=== PATIENT | female | born 1930 | race Caucasian/White ===

== ENCOUNTER 2017-05-30 11:33 | Inpatient (IN) | payer MEDICARE, BC, OTHER ==
[~2017-05-30] VITALS: Ht 162.6 cm; Wt 62.5 kg
[2017-05-30] VITALS (8 sets, daily range): BP systolic 104–199; BP diastolic 60–92; PULSE 69–98; RESP 16–20; TEMP 97.6–98.7; O2SAT 96–98
[~2017-05-30 11:33] MED LIST: LEVO75TA3 PO
--- NOTE | 2017-05-30 12:25 | PD ---
HPI Chief Complaint: Respiratory Symptoms Time Seen by Provider: 12:09 Travel History International Travel<30 days: No Contact w/Intl Traveler<30days: No Traveled to known affect area: No History of Present Illness HPI 86-year-old female presents to the emergency department for evaluation of an episode of chest pressure, shortness of breath on Sunday, 2 days ago, as well as generalized weakness. Patient states that on Sunday round 1 PM, she had approximately 20 minute episode of shortness of breath with chest pressure. She states it felt like indigestion. She states the chest pressure was relieved with Gas-X. She denies any current chest pressure or shortness of breath. She states that she felt generally weak yesterday, but actually is feeling much better this morning. However, she was going to go for a massage and was encouraged to come to the emergency department by her masseuse. The patient denies any headache. She does report visual changes in the past, but states her vision is "clear" now. Patient denies any fevers or chills. She has no current shortness of breath or chest pain. No abdominal pain. No nausea , vomiting, diarrhea. Patient states that she has not had any syncopal episodes. She has not fallen. She states that she felt like she was unable to. Yesterday, but states that today she is able to function normally. She does live alone. Patient reports drinking 1 shot of alcohol daily. She states that she was a previous tobacco user, but does not currently smoke. No other complaints at this time. Patient denies any recent surgery or travel. No history of DVT/PE. No new leg edema. No hemoptysis. Patient took ASA 81 mg PO this AM. PFSH Past Medical History Arthritis: Yes Cancer: Yes (melano insitu) Cardiovascular Problems: No Coronary Artery Disease: Yes (AORTIC/MITRAL VALVE DISEASE) Diabetes: No Diverticulitis: Yes Genitourinary: No Hepatitis: No Hiatal Hernia: No Hypertension: No Implanted Vascular Access Dvce: No Musculoskeletal: Yes (OSTEOPENIA) Neurologic: No Reproductive: No Respiratory: No Thyroid Disease: Yes ?: Not Past Surgical History Abdominal Aneurysm Repair: Yes Section: Yes Ear Surgery: No Eye Surgery: Yes (BILATERAL CATARACTS) Gynecologic Surgery: Yes (c section) Oral Surgery: Yes (implants ) Tonsillectomy: Yes Other Surgery: Yes Social History Alcohol Use: No Tobacco Use: No Substance Use: No Allergies-Medications (Allergen,Severity, Reaction): Coded Allergies: No Known Allergies (Verified , 05/30/17) Reported Meds & Prescriptions Reported Meds & Active Scripts Active Reported Aspirin Low Dose (Aspirin) 81 Mg Chew 81 Mg CHEW DAILY Levothyroxine (Levothyroxine Sodium) 75 Mcg Tab 75 Mcg PO DAILY Review of Systems Except as stated in HPI: all other systems reviewed are Neg Physical Exam Narrative GENERAL: Well-nourished, well-developed elderly female patient, afebrile. SKIN: Focused skin assessment warm/dry. HEAD: Normocephalic. Atraumatic. EYES: No scleral icterus. No injection or drainage. NECK: Supple, trachea midline. No JVD or lymphadenopathy. CARDIOVASCULAR: Regular rate and rhythm without murmurs, gallops, or rubs. Patient does have systolic murmur noted, patient states this is chronic for her. RESPIRATORY: Breath sounds equal bilaterally. No accessory muscle use. Lungs sounds are clear to auscultation. GASTROINTESTINAL: Abdomen soft, non-tender, nondistended. MUSCULOSKELETAL: No cyanosis, or edema. Bilateral upper and lower extremity strength 5/5. All extremities are neurovascularly intact. BACK: Nontender without obvious deformity. No CVA tenderness. Data Data Last Documented VS Vital Signs Date Time Temp Pulse Resp B/P (MAP) Pulse Ox O2 Delivery O2 Flow Rate FiO2 05/30/17 12:51 88 18 181/75 (110) 98 Room Air 193/82 (119) 05/30/17 11:49 98.0 Orders Orders Electrocardiogram (05/30/17 12:18) Ckmb (Isoenzyme) Profile (05/30/17 12:18) Complete Blood Count With Diff (05/30/17 12:18) Comprehensive Metabolic Panel (05/30/17 12:18) Magnesium (Mg) (05/30/17 12:18) Prothrombin Time / Inr (Pt) (05/30/17 12:18) Act Partial Throm Time (Ptt) (05/30/17 12:18) Troponin I (05/30/17 12:18) Lipase (05/30/17 12:18) Chest, Single Ap (05/30/17 12:18) Ecg Monitoring (05/30/17 12:18) Bilateral Bp Monitoring (05/30/17 12:18) Iv Access Insert/Monitor (05/30/17 12:18) Oximetry (05/30/17 12:18) Oxygen Administration (05/30/17 12:18) Aspirin Chew (Aspirin Chew) (05/30/17 12:30) Sodium Chloride 0.9% Flush (Ns Flush) (05/30/17 12:30) Thyroid Stimulating Hormone (05/30/17 12:18) Urinalysis - C+S If Indicated (05/30/17 12:20) Aspirin Chew (Aspirin Chew) (05/30/17 12:30) Lisinopril (Prinivil) (05/30/17 13:30) Place In Observation (05/30/17 13:26) Activity Bed Rest With Brp (05/30/17 13:26) Vital Signs (Adult) Q4H (05/30/17 13:26) Cardiac Rhythm .As Directed (05/30/17 13:26) Notify Dr: Other .PRN (05/30/17 13:26) Notify Dr. Parameters (05/30/17 13:26) Resp Oxygen Nasal Cannula (05/30/17 ) Diet Npo (05/31/17 Breakfast) Diet Heart Healthy (05/30/17 Lunch) Ckmb (Isoenzyme) Profile (05/30/17 13:26) Ckmb (Isoenzyme) Profile (05/30/17 16:26) Troponin I (05/30/17 13:26) Troponin I (05/30/17 16:26) Electrocardiogram (05/30/17 13:26) Electrocardiogram (05/30/17 16:26) ^ Obtain (05/30/17 13:26) Sodium Chloride 0.9% Flush (Ns Flush) (05/30/17 13:30) Sodium Chloride 0.9% Flush (Ns Flush) (05/30/17 21:00) Nitroglycerin 2% Oint (Nitroglycerin 2% (05/30/17 18:00) Stain Applicator / Telemetry CYNTHIA.Q8H (05/30/17 13:26) Admit Order (Ed Use Only) (05/30/17 13:27) Labs Laboratory Tests Test 05/30/17 12:20 05/30/17 12:40 White Blood Count 8.8 TH/MM3 Red Blood Count 3.72 MIL/MM3 Hemoglobin 11.6 GM/DL Hematocrit 35.2 % Mean Corpuscular Volume 94.6 FL Mean Corpuscular Hemoglobin 31.1 PG Mean Corpuscular Hemoglobin Concent 32.9 % Red Cell Distribution Width 14.8 % Platelet Count 277 TH/MM3 Mean Platelet Volume 8.1 FL Neutrophils (%) (Auto) 60.8 % Lymphocytes (%) (Auto) 24.8 % Monocytes (%) (Auto) 11.2 % Eosinophils (%) (Auto) 2.6 % Basophils (%) (Auto) 0.6 % Neutrophils # (Auto) 5.2 TH/MM3 Lymphocytes # (Auto) 2.2 TH/MM3 Monocytes # (Auto) 1.0 TH/MM3 Eosinophils # (Auto) 0.2 TH/MM3 Basophils # (Auto) 0.1 TH/MM3 CBC Comment DIFF FINAL Differential Comment Prothrombin Time 10.4 SEC Prothromb Time International Ratio 0.9 RATIO Activated Partial Thromboplast Time 27.5 SEC Blood Urea Nitrogen 14 MG/DL Creatinine 0.82 MG/DL Random Glucose 95 MG/DL Total Protein 7.6 GM/DL Albumin 3.8 GM/DL Calcium Level 9.5 MG/DL Magnesium Level 2.0 MG/DL Alkaline Phosphatase 77 U/L Aspartate Amino Transf (AST/SGOT) 17 U/L Alanine Aminotransferase (ALT/SGPT) 18 U/L Total Bilirubin 0.3 MG/DL Sodium Level 139 MEQ/L Potassium Level 3.9 MEQ/L Chloride Level 104 MEQ/L Carbon Dioxide Level 28.4 MEQ/L Anion Gap 7 MEQ/L Estimat Glomerular Filtration Rate 66 ML/MIN Total Creatine Kinase 73 U/L Troponin I LESS THAN 0.02 NG/ML Lipase 315 U/L Thyroid Stimulating Hormone 3rd Gen 0.928 uIU/ML Urine Collection Type CLEAN CATCH Urine Color YELLOW Urine Turbidity CLEAR Urine pH 6.5 Urine Specific [place] 1.020 Urine Protein NEG mg/dL Urine Glucose (UA) NEG mg/dL Urine Ketones NEG mg/dL Urine Occult Blood TRACE Urine Nitrite NEG Urine Bilirubin NEG Urine Leukocyte Esterase NEG Urine RBC 0-3 /hpf Urine Squamous Epithelial Cells 0-5 /hpf Microscopic Urinalysis Comment CULT NOT INDICATED Urine Collection Time 12:40 [facility] Medical Decision Making Medical Screen Exam Complete: Yes Emergency Medical Condition: Yes Medical Record Reviewed: Yes Interpretation(s) chest x-ray - CONCLUSION: No acute disease. Differential Diagnosis ACS versus electrolyte abnormality versus UTI versus dehydration versus pneumonia versus indigestion Narrative Course 86-year-old female presents to the emergency department for evaluation of generalized weakness, episode of chest pressure/shortness of breath on Sunday. She has no shortness breath or chest pain now. Episode on Sunday was relieved with Gas-X. She also states that her weakness is much better today. Patient does appear well on exam. EKG, CBC, CMP, CK, troponin, TSH, lipase, UA, PTT, PT / INR are ordered and pending. Chest x-ray is ordered and pending. Patient is given aspirin 81 mg by mouth (patient took ASA 81 mg this AM as well). EKG shows SR, no acute ST changes. CBC shows no acute abnormalities. CMP is unremarkable. Lipase is 315. CK is 73. Troponin is less than 0.02. TSH is 0.928. Coags are unremarkable. UA is unremarkable. Chest x-ray shows no acute disease. 1242- Patient reports chest pressure when walking to the bathroom, "feels like a bra". VSS. According to RN, she did notice a PVC on cardiac exercise physiologist. [facility] is paged for admission. Dr. Norris accepted admission. Steph Smith May 30, 2017 12:25
[2017-05-30] MEDS ORDERED: ASPI81CH37 CHEW (12:26)
[2017-05-30 12:28] LABS: AUTOMATED NEUTROPHIL # 5.2 TH/MM3 (1.8-7.7); BASOPHIL # 0.1 TH/MM3 (0-0.2); BASOPHIL % 0.6 % (0.0-2.0); EOSINOPHIL # 0.2 TH/MM3 (0-0.4); EOSINOPHIL % 2.6 % (0.0-4.0); HEMATOCRIT 35.2 % (35.0-46.0); HEMO FLAGS DIFF FINAL; LYMPH % 24.8 % (9.0-44.0); LYMPHOCYTE # 2.2 TH/MM3 (1.0-4.8); MEAN CELL VOLUME 94.6 FL (80.0-100.0); MEAN CORPUSCULAR HEMOGLOBIN 31.1 PG (27.0-34.0); MEAN CORPUSCULAR HGB CONC 32.9 % (32.0-36.0); MONO % 11.2 % (0.0-8.0); NEUT % 60.8 % (16.0-70.0); PLATELET COUNT 277 TH/MM3 (150-450); RED BLOOD COUNT 3.72 MIL/MM3 (4.00-5.30); RED CELL DISTRIBUTION WIDTH 14.8 % (11.6-17.2); WHITE BLOOD COUNT 8.8 TH/MM3 (4.0-11.0)
[2017-05-30] MEDS ORDERED: ASPIRIN 81 MG CHEW TAB CHEW ONE (12:30)
[2017-05-30] MEDS ORDERED: ASPIRIN 81 MG CHEW TAB PO ONE (12:30)
[2017-05-30] MEDS ORDERED: SODIUM CHLORIDE 0.9% FLUSH 10 ML FLUSH IVF PRN (12:30)
[2017-05-30 12:36] LABS: CHLORIDE 104 MEQ/L (98-107); POTASSIUM 3.9 MEQ/L (3.5-5.1); SODIUM (NA) 139 MEQ/L (136-145)
--- NOTE | 2017-05-30 12:36 | RADRPT ---
EXAM DATE/TIME: 05/30/2017 12:28 [place] COMPARISON: No previous studies available for comparison. INDICATIONS : Short of breath, chest pain. MEDICAL HISTORY : None. SURGICAL HISTORY : None. ENCOUNTER: Initial ACUITY: 1 week PAIN SCORE: 110 LOCATION: Bilateral chest FINDINGS: A single view of the chest demonstrates the lungs to be symmetrically aerated without evidence of mas s, infiltrate or effusion. Apical pleural calcifications are seen bilaterally. The cardiomediastina l contours are unremarkable. Osseous structures are intact. CONCLUSION: No acute disease. Matt Mobley MD FACR on May 30, 2017 at 12:34 Board Certified Radiologist. This report was verified electronically.
[2017-05-30 12:39] LABS: ANION GAP 7 MEQ/L (5-15); BICARBONATE 28.4 MEQ/L (21.0-32.0); BLOOD UREA NITROGEN 14 MG/DL (7-18)
[2017-05-30 12:40] LABS: APTT (PATIENT) 27.5 SEC (24.3-30.1); INTERNATIONAL NORMALIZED RATIO 0.9 RATIO; PROTHROMBIN TIME - PATIENT 10.4 SEC (9.8-11.6)
[2017-05-30 12:42] LABS: ALT (GPT) 18 U/L (10-53); AST (GOT) 17 U/L (15-37); GLOMERULAR FILTRATION RATE 66 ML/MIN (>89)
[2017-05-30 12:44] LABS: TOTAL BILIRUBIN ADULT 0.3 MG/DL (0.2-1.0)
[2017-05-30 12:45] LABS: ALKALINE PHOSPHATASE 77 U/L (45-117)
[2017-05-30 12:46] LABS: BLOOD, URINE TRACE (NEG); GLUCOSE,URINE NEG (NEG); KETONE, URINE NEG (NEG); NITRITE,URINE NEG (NEG); PH, URINE 6.5 (5.0-8.5)
[2017-05-30 13:02] LABS: METHOD OF COLLECTION CLEAN CATCH; URINE COLOR YELLOW (YELLW/STRAW)
[2017-05-30 13:03] LABS: COMMENT (UR) CULT NOT INDICATED; CULTURE IF INDICATED CULT NOT INDICATED; RBC, URINE 0-3 /hpf (0-3); SQUAMOUS EPITHELIAL CELL URINE 0-5 /hpf (0-5)
[2017-05-30 13:05] LABS: CREATINE KINASE 73 U/L (26-192)
[2017-05-30] MEDS ORDERED: LISINOPRIL 10 MG TAB PO ONE (13:15)
[2017-05-30] MEDS ORDERED: IOHEXOL 350 MG/ML 100 ML BTL (for Cath Lab) OTHER ONE (13:29)
[2017-05-30] MEDS ORDERED: SODIUM CHLORIDE 0.9% FLUSH 10 ML FLUSH IV FLUSH PRN (13:30)
[2017-05-30] MEDS ORDERED: LISINOPRIL 5 MG TAB PO ONE (13:30)
--- NOTE | 2017-05-30 15:33 | HHI.HP ---
cc: Deanne Wade MD [facility] Deanne Wade MD Admission Diagnosis chest pain Diagnoses: (1) Chest pressure Diagnosis: Principal (2) Dyspnea on exertion Diagnosis: Principal (3) Hypertensive urgency Diagnosis: Principal (4) Indigestion Diagnosis: Principal Chief Complaint: indigestion, chest pressure, shortness of breath on exertion Travel History International Travel<30 Days: No Contact w/Intl Traveler <30 Da: No Traveled to Known Affected Are: No History of Present Illness 86-year-old female with history of mitral valve prolapse, AAA, bilateral carotid artery blockages, thyroid disease, and arthritis presents with complaint of indigestion, chest pressure, and shortness of breath on exertion. The patient states that she has had "serious indigestion" for a couple of weeks. She states she has had gas pain in the lower abdomen. She states she took Gas-X which reduced the "abdominal stuff" and allowed her to belch. Takes two tablets of ibuprofen 200 mg daily for arthritis, but denies recent increase in use. Takes ranitidine as needed for heartburn depending on what she eats. Denies hematochezia or melena. She states on Sunday night though when she was getting ready to go to bed she started to have chest pressure in the center of her chest stating it felt like a "heavy book". She states she could not catch her breath. She states this episode lasted 30 minutes. She states again when she was in the ER today in bed she had pressure over the center of her chest which was less severe and lasted 1.5 hours without medication. She denies any associated diaphoresis, numbness or tingling in the upper extremities, radiation of pain to the neck/jaws/shoulders/arms/back, nausea, or vomiting. Denies palpitations. Denies any current chest pain, shortness of breath, or abdominal pain. The patient takes a baby aspirin daily and she took it this morning and received another 81 mg in the ED. Patient denies regurgitation with episodes. She states for the past 6 months she has had shortness of breath with exertion and that she when she does housework etc. she has to take a break which she did not need to do prior to 6 months ago. The patient does not remember when she last had an echocardiogram. She is aware she has a murmur. She states her old PCP Dr. Berg had referred her to Dr. Moon who evaluated her. She tells me she has slight blockages in both carotid arteries and additionally has a AAA which is less than 4 cm, both issues are being monitored. Denies h/o HTN. States she was on Rosuvastatin for 3 -4 years, but had taken herself off it; she restarted it a few days ago. The patient additionally states she had generalized weakness yesterday which has now resolved, but admits to episodes of this on and off over the past 6 months. She denies any focal weakness. The patient admits to feeling lightheaded and woozy when she has her episodes of indigestion. She denies any HAs, recent fevers or chills, cold or cough symptoms, dysuria, or diarrhea. She states she took a long car trip to [place] at the end of March and had some left ankle swelling at that time but it has greatly reduced since then; frequent stops were made. She denies any calf pain, history of DVT or pulmonary embolus, hemoptysis, recent hospitalization/trauma/surgery in the last 3 months, estrogen use, or active cancer. Patient has never had a cardiac stress test. Review of Systems Constitutional: COMPLAINS OF: Dizziness (lightheadedness), DENIES: Diaphoretic episodes, Fever, Chills Eyes: COMPLAINS OF: Blurred vision ("cloudy vision which clears" (duration unknown)) Ears, nose, mouth, throat: DENIES: Throat pain, Ear Pain, Running Nose Respiratory: COMPLAINS OF: Shortness of breath, DENIES: Cough, Hemoptysis Cardiovascular: COMPLAINS OF: Chest pain, Dyspnea on Exertion, DENIES: Palpitations, Lower Extremity Edema (none currently) Gastrointestinal: COMPLAINS OF: Abdominal pain, DENIES: Black stools, Bloody stools, Constipation, Diarrhea, Nausea, Vomiting Genitourinary: COMPLAINS OF: Urinary incontinence (chronic leakage), DENIES: Hematuria, Dysuria Musculoskeletal: DENIES: Back pain, Neck pain Integumentary: DENIES: Rash Neurologic: DENIES: Headache, Localized weakness, Paresthesias Past Family Social History Past Medical History Arthritis in her knees and hands Melanoma Mitral valve prolapse AAA Partial blockages B/L carotid arteries Thyroid disease Patient had 8 pregnancies but lost #6 and #7 stating she was Rh negative. Past Surgical History Bladder sling Bilateral cataracts 1 Dental implants Tonsillectomy Reported Medications Aspirin Low Dose (Aspirin) 81 Mg Chew 81 Mg CHEW DAILY Levothyroxine (Levothyroxine Sodium) 75 Mcg Tab 75 Mcg PO DAILY Rosuvastatin 5 mg po daily Multivitamin OTC Calcium/Mg/Zinc Cod liver oil Allergies: Coded Allergies: No Known Allergies (Verified , 05/30/17) Family History Mother: varicose veins. No h/o heart disease, HTN, or DM. Does not know father's history. Social History Lives alone, . Daughter, who is an RN, lives locally. Drinks a shot of rye whiskey daily. Quit smoking 20 years ago. Prior to this she smoked 1 ppd for 50 years. Denies h/o illicit drug use. Physical Exam Vital Signs Vital Signs Date Time Temp Pulse Resp B/P (MAP) Pulse Ox O2 Delivery O2 Flow Rate FiO2 05/30/17 14:16 05/30/17 14:04 89 16 199/92 (127) 97 Room Air 05/30/17 12:51 88 18 181/75 (110) 98 Room Air 193/82 (119) 05/30/17 12:26 97 Room Air 05/30/17 12:26 97 Room Air 05/30/17 12:26 94 97 Room Air 05/30/17 11:49 98.0 98 16 176/79 (111) 96 Physical Exam GENERAL: This is a pleasant well-nourished, well-developed patient, in no apparent distress who appears good for her age. SKIN: No rashes, ecchymoses or lesions. Warm and dry. HEAD: Atraumatic. Normocephalic. EYES: No scleral icterus. No injection or drainage. ENT: MMM. Airway patent. NECK: Trachea midline. Carotid bruits bilaterally. CARDIOVASCULAR: Regular rate and rhythm. 2/6 murmur most notable over pulmonic region. RESPIRATORY: Clear to auscultation. Breath sounds equal bilaterally. No wheezes , rales, or rhonchi. GASTROINTESTINAL: Abdomen soft, non-tender, nondistended. No guarding. MUSCULOSKELETAL: No lower extremity edema bilaterally. No calf, popliteal, or posterior thigh pain bilaterally. BACK: No CVA tenderness bilaterally. NEUROLOGICAL: Awake and alert. No cranial nerve deficits noted. Motor and sensory grossly within normal limits. Five out of 5 muscle strength in bilateral arms and legs. Normal speech. PSYCHIATRIC: Normal mood and affect; insight and judgement normal. Laboratory Laboratory Tests Test 05/30/17 12:20 05/30/17 12:40 White Blood Count 8.8 Red Blood Count 3.72 Hemoglobin 11.6 Hematocrit 35.2 Mean Corpuscular Volume 94.6 Mean Corpuscular Hemoglobin 31.1 Mean Corpuscular Hemoglobin Concent 32.9 Red Cell Distribution Width 14.8 Platelet Count 277 Mean Platelet Volume 8.1 Neutrophils (%) (Auto) 60.8 Lymphocytes (%) (Auto) 24.8 Monocytes (%) (Auto) 11.2 Eosinophils (%) (Auto) 2.6 Basophils (%) (Auto) 0.6 Neutrophils # (Auto) 5.2 Lymphocytes # (Auto) 2.2 Monocytes # (Auto) 1.0 Eosinophils # (Auto) 0.2 Basophils # (Auto) 0.1 CBC Comment DIFF FINAL Differential Comment Prothrombin Time 10.4 Prothromb Time International Ratio 0.9 Activated Partial Thromboplast Time 27.5 Blood Urea Nitrogen 14 Creatinine 0.82 Random Glucose 95 Total Protein 7.6 Albumin 3.8 Calcium Level 9.5 Magnesium Level 2.0 Alkaline Phosphatase 77 Aspartate Amino Transf (AST/SGOT) 17 Alanine Aminotransferase (ALT/SGPT) 18 Total Bilirubin 0.3 Sodium Level 139 Potassium Level 3.9 Chloride Level 104 Carbon Dioxide Level 28.4 Anion Gap 7 Estimat Glomerular Filtration Rate 66 Total Creatine Kinase 73 Troponin I LESS THAN 0.02 Lipase 315 Thyroid Stimulating Hormone 3rd Gen 0.928 Urine Collection Type CLEAN CATCH Urine Color YELLOW Urine Turbidity CLEAR Urine pH 6.5 Urine Specific [place] 1.020 Urine Protein NEG Urine Glucose (UA) NEG Urine Ketones NEG Urine Occult Blood TRACE Urine Nitrite NEG Urine Bilirubin NEG Urine Leukocyte Esterase NEG Urine RBC 0-3 Urine Squamous Epithelial Cells 0-5 Microscopic Urinalysis Comment CULT NOT INDICATED Urine Collection Time 12:40 Result Diagram: 05/30/17 1220 05/30/17 1220 Imaging Last Impressions Chest X-Ray 05/30/17 1218 Signed Impressions: Service Date/Time: Tuesday, May 30, 2017 12:28 - CONCLUSION: No acute disease. Matt Mobley MD FACR Caprini VTE Risk Assessment Caprini VTE Risk Assessment: Mod/High Risk (score >= 2) Caprini Risk Assessment Model Point Value = 1 Point Value = 2 Point Value = 3 Point Value = 5 Age 41-60 Minor surgery BMI > 25 kg/m2 Swollen legs Varicose veins or History of unexplained or recurrent spontaneous Oral contraceptives or hormone replacement Sepsis (< 1 month) Serious lung disease, including pneumonia (< 1 month) Abnormal pulmonary function Acute myocardial infarction Congestive heart failure (< 1 month) History of inflammatory bowel disease Medical patient at bed rest Age 61-74 Arthroscopic surgery Major open surgery (> 45 min) Laparoscopic surgery (> 45 min) Malignancy Confined to bed (> 72 hours) Immobilizing plaster cast Central venous access Age >= 75 History of VTE Family history of VTE Factor V Leiden Prothrombin [id number] Lupus anticoagulant Anticardiolipin antibodies Elevated serum homocysteine Heparin-induced thrombocytopenia Other congenital or acquired thrombophilia Stroke (< 1 month) Elective arthroplasty Hip, pelvis, or leg fracture Acute spinal cord injury (< 1 month) Prophylaxis Regimen Total Risk Factor Score Risk Level Prophylaxis Regimen 0-1 Low Early ambulation 2 Moderate Order ONE of the following: *Sequential Compression Device (SCD) *Heparin 5000 units SQ BID 3-4 Higher Order ONE of the following medications: *Heparin 5000 units SQ TID *Enoxaparin/Lovenox 40 mg SQ daily (WT < 150 kg, CrCl > 30 mL/min) *Enoxaparin/Lovenox 30 mg SQ daily (WT < 150 kg, CrCl > 10-29 mL/min) *Enoxaparin/Lovenox 30 mg SQ BID (WT < 150 kg, CrCl > 30 mL/min) AND/OR *Sequential Compression Device (SCD) 5 or more Highest Order ONE of the following medications: *Heparin 5000 units SQ TID (Preferred with Epidurals) *Enoxaparin/Lovenox 40 mg SQ daily (WT < 150 kg, CrCl > 30 mL/min) *Enoxaparin/Lovenox 30 mg SQ daily (WT < 150 kg, CrCl > 10-29 mL/min) *Enoxaparin/Lovenox 30 mg SQ BID (WT < 150 kg, CrCl > 30 mL/min) AND *Sequential Compression Device (SCD) Assessment and Plan Assessment and Plan 86 year old female with: Chest pressure: EKG #1 personally interpreted with NSR, first-degree AV block, but no evidence of ischemia. Chest x-ray personally interpreted with no evidence of cardiomegaly, effusion, or infiltrate. Radiologist indicates there are apical pleural calcifications bilaterally which daughter states are chronic. CBC unremarkable. Aside from GFR of 66, CMP unremarkable. Troponin less than 0.02. TSH normal. -Serial EKGs and enzymes -Telemetry -Nitroglycerin/morphine prn chest pain -Patient will undergo nuclear stress test in the morning if ACS ruled out. Patient aware that if nuclear test is abnormal she would likely require cardiac catheterization. Dyspnea on exertion: Past 6 months. Patient does have history of mitral valve prolapse and has murmur on exam. She does not recall when she last had an echo. No evidence of acute CHF on exam or chest x-ray. Differentials include worsening valve disorder, heart failure, or deconditioning due to age. -Echo Hypertensive urgency: Patient's blood pressure has been elevated since arrival with highest BP of 199/92 this afternoon. Patient was given Lisinopril 10 mg by mouth in the ED. -Enalapril 1.25 mg IV q6h prn SBP >/= 160 and/or DBP >/= 90. Indigestion: Past couple of weeks. Abdominal gas pain has resolved with Gas-Ex. Patient uses Ranitidine prn but states she did not use it while taking Gas-Ex. -Start Pepcid 20 mg po bid Carotid bruits: chronic, patient being followed for blockages. Continue Crestor. RN to add to med rec so can be continued. DVT prophylaxis: SCDs Code Status FULL CODE Discussed Condition With patient and daughter at bedside Susanne Newman May 30, 2017 15:33
[2017-05-30] MEDS ORDERED: ONDANSETRON HCL 4 MG/2 ML VIAL IV PUSH PRN (15:45)
[2017-05-30] MEDS ORDERED: ACETAMINOPHEN 500 MG CPLT PO PRN (15:45)
[2017-05-30] MEDS ORDERED: MORPHINE SULFATE 4 MG/ML INJ IV PUSH PRN (15:45)
[2017-05-30] MEDS ORDERED: NITROGLYCERIN 0.4 MG SL 25 TABS/BTL SL PRN (15:45)
[2017-05-30 16:27] LABS: CREATINE KINASE 75 U/L (26-192)
[2017-05-30] MEDS ORDERED: ENOXAPARIN SODIUM 40 MG/0.4 ML SYRINGE SQ SCH (17:00)
[2017-05-30] MEDS ORDERED: ENALAPRILAT 1.25 MG/ML VIAL IV PUSH PRN (17:00)
[2017-05-30] MEDS ORDERED: NITROGLYCERIN 2% OINT 1 GM PACKET TOP SCH (18:00)
[2017-05-30 19:28] LABS: CREATINE KINASE 70 U/L (26-192)
[2017-05-30] MEDS: SODIUM CHLORIDE 0.9% FLUSH 10 ML FLUSH IV FLUSH SCH (20:24)
[2017-05-30] MEDS ORDERED: FAMOTIDINE 20 MG TAB PO SCH (21:00)
--- NOTE | 2017-05-30 23:30 | EKG ---
Date Performed: 05/30/2017 Time Performed: 18:38:29 PTAGE: 86 years EKG: Sinus rhythm WITH FIRST DEGREE AV BLOCK ABNORMAL ECG PREVIOUS TRACING : 05/30/2017 15.37 Compared to prior tracing no significant change DOCTOR: Edgardo Soni Interpretating Date/Time 05/30/2017 23:29:55
--- NOTE | 2017-05-30 23:35 | EKG ---
Date Performed: 05/30/2017 Time Performed: 15:37:21 PTAGE: 86 years EKG: Sinus rhythm WITH FIRST DEGREE AV BLOCK WITH OCCASIONAL VENTRICULAR PREMATURE COMPLEXES ABNORMAL ECG PREVIOUS TRACING : 05/30/2017 12.24 Compared to prior tracing no significant change DOCTOR: Edgardo Soni Interpretating Date/Time 05/30/2017 23:34:42
--- NOTE | 2017-05-30 23:50 | EKG ---
Date Performed: 05/30/2017 Time Performed: 12:24:21 PTAGE: 86 years EKG: Sinus rhythm WITH FIRST DEGREE AV BLOCK ABNORMAL ECG PREVIOUS TRACING : 11/05/2012 06.50 Compared to prior tracing no significant change DOCTOR: Edgardo Soni Interpretating Date/Time 05/30/2017 23:48:45
[2017-05-31] VITALS (12 sets, daily range): BP systolic 85–160; BP diastolic 55–76; PULSE 73–101; RESP 16–20; TEMP 95.6–97.9; O2SAT 95–99
[2017-05-31] MEDS: LEVOTHYROXINE SODIUM 75 MCG TAB PO SCH (05:38)
[2017-05-31] MEDS: SODIUM CHLORIDE 0.9% FLUSH 10 ML FLUSH IV FLUSH SCH ×2 (10:41→21:01)
[2017-05-31] MEDS: ASPIRIN 325 MG TAB PO SCH (10:41)
--- NOTE | 2017-05-31 10:43 | TR ---
Date Performed: 05/31/2017 Time Performed: 09:03:57 DOCTOR: Shailesh Ortiz DRUG LIST: CLINICAL HISTORY: REASON FOR TEST: Chest pain REASON FOR ENDING: OBSERVATION: CONCLUSION: Lexiscan stress test was performed under standard four minute protocol. Radionuclide was injected one minute prior to ending the test. No electrocardiographic abormalities were present to suggest ischemia. Nuclear imaging and interpretation are pending. COMMENTS: No evidence of ischemia on EKG. Scan pending
--- NOTE | 2017-05-31 10:48 | RADRPT ---
EXAM DATE/TIME: 05/31/2017 08:36 [place] COMPARISON: No previous studies available for comparison. INDICATIONS : Chest pain with dyspnea. Unable to walk on treadmill. DOSE: 25.4 mCi Tc99m Myoview at stress. 8.7 mCi Tc99m Myoview at rest. 0.4 mg Lexiscan STRESS SYMPTOMS: Chest and abdominal pain with dizziness. EJECTION FRACTION: 47% MEDICAL HISTORY : Hypercholesterolemia. Diverticulitis. SURGICAL HISTORY : Tonsillectomy. ENCOUNTER: Initial ACUITY: 2 days PAIN SCALE: 6/10 LOCATION: chest TECHNIQUE: The patient underwent pharmacologic stress with infusion of prescribed dose. Continuous ECG tracing was monitored during stress. Gated SPECT imaging was performed after stress and conventional SPECT i maging was performed at rest. The examination was performed on a SPECT/CT scanner, both attenuation and non-corrected datasets were reviewed. FINDINGS: DISTRIBUTION: The maximum perfused segment at stress is in the anterior wall. PERFUSION STUDY: The pattern of perfusion at stress is within normal limits. GATED STUDY: Mild hypokinesis. CONCLUSION: 1. No definite reversibility to suggest ischemia. 2. Mild hypokinesis with ejection fraction 47%. RISK CATEGORY: Intermediate (1-3% Annual Mortality Rate) Alan Rodriguez MD on May 31, 2017 at 10:27 Board Certified Radiologist. This report was verified electronically.
--- NOTE | 2017-05-31 11:58 | ECHRPT ---
Indication: SHORTNESS OF BREATH CONCLUSIONS Normal left ventricular size. Mild concentric left ventricular hypertrophy. The left ventricular systolic function is normal with an estimated ejection fraction in the range of 55-60%. Doppler parameters are consistent with impaired left ventricular relaxtion (grade 1 diastolic dysfun ction). The left atrial size is ymfc-ym-ahhaxvgmyc dilated. The right atrial size is mildly dilated. The interatrial septum not well visualized. Mild thickening of the mitral valve leaflets. Outi-gp-mlgfndvv mitral valve regurgitation. Moderate mitral annular calcification. Mitral valve mean gradient is 3.5 mmHg. Diffuse calcification of the aortic valve. Trace aortic valve regurgitation. Aortic valve area is 0.65 cm. Aortic valve mean gradient is 35 mmHg. Moderate to severe aortic valve stenosis. There is trace tricuspid valve regurgitation. Normal estimated pulmonary pressures. The inferior vena cava was not well visualized. A prominent epicardial fat pad is present. BP: 155 / 76 HR: 84 Rhythm: Sinus MEASUREMENTS (Male / Female) Normal Values Technical Quality:Poor 2D ECHO LV Diastolic Diameter PLAX 3.5 cm 4.2 - 5.9 / 3.9 - 5.3 cm LV Systolic Diameter PLAX 2.7 cm IVS Diastolic Thickness 1.3 cm 0.6 - 1.0 / 0.6 - 0.9 cm LVPW Diastolic Thickness 1.3 cm 0.6 - 1.0 / 0.6 - 0.9 cm LV Relative Wall Thickness 0.7 LVOT Diameter 2.3 cm Aortic Root Diameter 3.0 cm LA Systolic Diameter LX 2.7 cm 3.0 - 4.0 / 2.7 - 3.8 cm DOPPLER AV Peak Velocity 359.3 cm/s AV Peak Gradient 51.6 mmHg AV Mean Gradient 31.3 mmHg AV Velocity Time Integral 84.3 cm LVOT Peak Velocity 64.0 cm/s LVOT Peak Gradient 1.6 mmHg LVOT Velocity Time Integral 15.0 cm LVOT Cardiac Index 3124.1 cm/minm AV Area Cont Eq vti 0.7 cm AV Area Cont Eq pk 0.7 cm MV Peak Velocity 163.5 cm/s MV Peak Gradient 10.7 mmHg MV Mean Velocity 86.7 cm/s MV Mean Gradient 3.5 mmHg Mitral E Point Velocity 87.9 cm/s Mitral A Point Velocity 117.0 cm/s Mitral E to A Ratio 0.8 LV E' Lateral Velocity 5.0 cm/s Mitral E to LV E' Lateral Ratio 17.7 LV E' Septal Velocity 4.0 cm/s Mitral E to LV E' Septal Ratio 22.0 TR Peak Velocity 213.0 cm/s TR Peak Gradient 18.1 mmHg PV Peak Velocity 80.5 cm/s PV Peak Gradient 2.6 mmHg FINDINGS LEFT VENTRICLE Normal left ventricular size. Mild concentric left ventricular hypertrophy. The left ventricular systolic function is normal with an estimated ejection fraction in the range of 55-60%. Doppler parameters are consistent with impaired left ventricular relaxtion (grade 1 diastolic dysfun ction). RIGHT VENTRICLE Normal right ventricular size and systolic function. LEFT ATRIUM The left atrial size is bjpn-wh-fpcpqdafdi dilated. RIGHT ATRIUM The right atrial size is mildly dilated. ATRIAL SEPTUM The interatrial septum not well visualized. AORTA The aortic root and proximal ascending aorta are normal in size on limited imaging. MITRAL VALVE Mild thickening of the mitral valve leaflets. Qjay-gy-psgqkxwl mitral valve regurgitation. Moderate mitral annular calcification. Mitral valve mean gradient is 3.5 mmHg. AORTIC VALVE Diffuse calcification of the aortic valve. Trace aortic valve regurgitation. Aortic valve area is 0.65 cm. Aortic valve mean gradient is 35 mmHg. Moderate to severe aortic valve stenosis. TRICUSPID VALVE Structurally normal tricuspid valve. There is trace tricuspid valve regurgitation. Normal estimated pulmonary pressures. PULMONARY VALVE No pulmonary valve regurgitation or stenosis. VESSELS The inferior vena cava was not well visualized. PERICARDIUM A prominent epicardial fat pad is present. Demario Hunt MD, FACC (Electronically Signed) Final Date:31 May 2017 11:57
--- NOTE | 2017-05-31 12:35 | HHI.PR ---
Subjective Remarks patient seen and evaluated in follow-up for chest discomfort which appears to be related to aortic stenosis. Discussed with cardiology on-call who recommended further evaluation by cardiac catheterization with possible surgical evaluation for the valve. This is discussed length with the patient and her daughter at bedside. They would like a second opinion from the on-call diagnostics tech. I did discuss with Dr. Moon as well. Patient will be transferred to the main cardiac unit for further evaluation. Objective Vitals Vital Signs Date Time Temp Pulse Resp B/P (MAP) Pulse Ox O2 Delivery O2 Flow Rate FiO2 05/31/17 11:49 95.6 101 18 155/68 (97) 95 05/31/17 08:00 96.2 75 18 148/67 (94) 96 05/31/17 08:00 97 21 05/31/17 04:00 97.7 84 20 155/76 (102) 96 05/31/17 00:00 97.9 77 20 160/71 (100) 95 05/30/17 20:25 96 21 05/30/17 20:00 97.6 72 20 140/60 (86) 96 05/30/17 18:58 98.7 74 17 104/68 (80) 96 05/30/17 16:00 98.0 69 18 154/82 (106) 96 05/30/17 14:16 05/30/17 14:04 89 16 199/92 (127) 97 Room Air 05/30/17 12:51 88 18 181/75 (110) 98 Room Air 193/82 (119) I/O 05/30/17 05/30/17 05/30/17 05/31/17 05/31/17 05/31/17 07:00 15:00 23:00 07:00 15:00 23:00 Intake Total 240 ml 0 ml Balance 240 ml 0 ml Intake Oral 240 ml 0 ml # Voids 4 1 # Bowel Movements 0 0 Result Diagram: 05/30/17 1220 05/30/17 1220 Imaging Last Impressions Myocardial Perfusion Scan Nuc Med 05/31/17 0600 Signed Impressions: Service Date/Time: May 08:36 - CONCLUSION: 1. No definite reversibility to suggest ischemia. 2. Mild hypokinesis with ejection fraction 47%%. RISK CATEGORY: Intermediate (1-3%% Annual Mortality Rate) Alan Rodriguez MD Chest X-Ray 05/30/17 1218 Signed Impressions: Service Date/Time: Tuesday, May 30, 2017 12:28 - CONCLUSION: No acute disease. Matt Mobley MD FACR Objective Remarks GENERAL: This is a well-nourished, well-developed patient, in no apparent distress. CARDIOVASCULAR: Regular rate and rhythm with systolic murmurs, no gallops, or rubs. RESPIRATORY: Clear to auscultation. Breath sounds equal bilaterally. No wheezes , rales, or rhonchi. GASTROINTESTINAL: Abdomen soft, non-tender, nondistended. Normal active bowel sounds MUSCULOSKELETAL: Extremities without clubbing, cyanosis, or edema. NEURO: Alert & Oriented x4 to person, place, time, situation. Moves all ext x4 A/P Problem List: (1) Chest pressure ICD Code: R07.89 - Other chest pain Plan: Atypical and associated with dyspnea on exertion, likely due to moderate to severe aortic valve stenosis seen on echo. Patient will benefit from further cardiac and cardiac surgical evaluation ( likely cath). Continue with current medical management of her blood pressure. Patient agreeable for second opinion with on-call diagnostics tech. Case discussed with Dr. mireles and Dr. Moon Discharge Planning TRANSFERRED TO THE MAIN [facility]OS[facility] FOR FURTHER CARDIAC EVALUATION Physician Certification 2 Midnight Certification Type: Admission for Inpatient Services Order for Inpatient Services The services are ordered in accordance with Medicare regulations or non- Medicare payer requirements, as applicable. In the case of services not specified as inpatient-only, they are appropriately provided as inpatient services in accordance with the 2-midnight benchmark. Estimated LOS (days): 4 4 days is the estimated time the patient will need to remain in the hospital, assuming treatment plan goals are met and no additional complications. Post-Hospital Plan: Home Kristen Norris MD May 31, 2017 12:35
[2017-05-31] MEDS ORDERED: REGADENOSON INJ 0.4 MG/5 ML SYR IV ONE (13:29)
[2017-05-31] MEDS: FAMOTIDINE 20 MG TAB PO SCH (21:01)
[2017-06-01] VITALS (19 sets, daily range): BP systolic 136–163; BP diastolic 48–86; PULSE 72–100; RESP 16–22; TEMP 97.5–98.3; O2SAT 93–98
[2017-06-01] MEDS: LEVOTHYROXINE SODIUM 75 MCG TAB PO SCH (04:54)
--- NOTE | 2017-06-01 08:57 | MB ---
cc: MARY FERREIRA DATE OF CONSULTATION: 06/01/2017 INDICATION Aortic stenosis. HISTORY OF PRESENT ILLNESS This is an 86-year-old female. She has a history of known mitral valve prolapse, aortic aneurysm, carotid disease and arthritis. She states that over the course of the past few months she has had worsening shortness of breath with exertion. She also describes a chest pain and epigastric pain. She thought that this was related to indigestion. She has taken Gas-X and Maalox with some improvement. She does describe it is worse with exertion and says that she develops bilateral arm pain. She was admitted to [facility] where she had a stress test done. An echocardiogram was ordered. The stress test showed a reduced ejection fraction. The echocardiogram showed moderate to severe aortic stenosis. She was transferred over to [facility] for further evaluation given her symptoms and significant aortic valve disease. Her has last echocardiogram was back in 2011 at which she was told she had some mitral valve and aortic valve disease, although the details of which are not available. PAST MEDICAL HISTORY 1. Arthritis. 2. Melanoma. 3. Mitral valve prolapse. 4. Abdominal aortic aneurysm. 5. Carotid disease. 6. Hypothyroidism. MEDICATIONS 1. Aspirin. 2. Levothyroxine. 3. Rosuvastatin. 4. Multivitamin. ALLERGIES No known drug allergies. FAMILY HISTORY Denies any family history of early coronary artery disease or sudden cardiac . SOCIAL HISTORY She takes one shot of whiskey daily. Quit smoking about 20 years ago, but smoked for 50 years. Denies any drug use. REVIEW OF SYSTEMS A 12-point review of systems was performed and negative unless otherwise noted is the history of present illness. PHYSICAL EXAMINATION VITAL SIGNS: Temperature 97, pulse 76, blood pressure 154/74 mmHg. GENERAL: Alert and oriented x3, in no acute distress. HEENT: Pupils are reactive to light and accommodation. Extraocular movements intact. NECK: No jugular venous distention. No thyromegaly. No lymphadenopathy. No carotid bruits. CARDIOVASCULAR: Regular rate and rhythm with a 3/6 crescendo decrescendo murmur at the right sternal border. LUNGS: Clear to auscultation bilaterally. ABDOMEN: Nontender, nondistended. Good bowel sounds. No hepatosplenomegaly. EXTREMITIES: No clubbing, cyanosis or edema. Good peripheral pulses. NEUROLOGIC: Cranial nerves intact. Motor and sensory grossly intact. LABORATORY WBC 8.8, hemoglobin 11.6, platelet count 277. INR is 0.9. Sodium 139, potassium 3.9, BUN 14, creatinine 0.82. Troponins negative x3. ASSESSMENT 1. Aortic stenosis. 2. Chest pain. 3. Carotid disease. PLAN We reviewed the echocardiogram results. Her symptoms are concerning for both angina and valvular heart disease. Her echocardiogram shows severely reduced valve area. Mean gradient is 35 mmHg. Her peal velocity is 3.6 meters per second. This would put her into the moderate to severe range. Given her suggestive symptoms and aortic valve disease we are going to proceed with a left and right heart catheterization to define her coronary anatomy and get an invasive transaortic valve gradient. We discussed several options related to aortic valve disease. Given her age and co-morbidities she is not really interested any traditional surgical strategy. She would consider a transaortic valve replacement if that was a potential option. We will review the case in more detail with the [facility] team. Her mean gradient and peak aortic velocity is not quite in the severe range, but her symptoms are concerning. The risks, benefits and alternatives of cardiac catheterization was discussed and she is agreeable to proceed. MD BONI Billingsley/GENA /8:24 AM /8:33 AM AAMIR
[2017-06-01] MEDS: ASPIRIN 325 MG TAB PO SCH (10:10)
[2017-06-01] MEDS: SODIUM CHLORIDE 0.9% FLUSH 10 ML FLUSH IV FLUSH SCH ×2 (10:11→20:41)
[2017-06-01] MEDS: FAMOTIDINE 20 MG TAB PO SCH ×2 (10:11→20:37)
[2017-06-01] MEDS ORDERED: HEPARIN-NS/PF INJ 1,000 ML ONE (11:27)
[2017-06-01] MEDS ORDERED: MIDAZOLAM HCL 2 MG/2 ML VIAL ONE (11:28)
[2017-06-01] MEDS ORDERED: HEPARIN-D5W 25,000 U/250 ML 250 ML ONE (12:16)
[2017-06-01] MEDS ORDERED: LEVO75TA3 PO (12:18)
[2017-06-01] MEDS ORDERED: HEPARIN SODIUM - IV 10,000 UNITS/10 ML VIAL ONE (12:23)
[2017-06-01] MEDS: HEPARIN-D5W 25,000 U/250 ML 250 ML IV PRN ×2 (12:35→17:49)
[2017-06-01] MEDS ORDERED: SODIUM CHLOR 0.9% 1000 ML INJ 1,000 ML IV SCH (12:37)
[2017-06-01] MEDS ORDERED: LORazepam 2 MG/ML VIAL IV PUSH PRN (12:45)
[2017-06-01] MEDS ORDERED: LIDOCAINE HCL 1% 50 ML VIAL INFIL PRN (12:45)
[2017-06-01] MEDS ORDERED: BACITRACIN OINT 0.9 GM PKT TOP ONE (12:45)
--- NOTE | 2017-06-01 12:58 | CATHPROC ---
[place] HIS Report Study Information Study Number Admission Scheduled Start Study Start [id number] May 30 2017 1:28PM 06/01/2017 Jun 01 2017 10:37AM [place] Service Cardiac Catheterization Admit Source Facility Department Emergency department [facility] - Plumber Assistant Physician and Clinical Staff Initial Demario Flynn Sales Designernabor Thompson RN, Yue Galdamez RN Recorder En Dickerson RCIS(BS) Scrub Mildred Neal,RT(R) Procedures Performed Procedure Location (Site) Vessel Name Angiogram LV Aortic Coronary Angiograms LCA Left Coronary Coronary Angiograms RCA Right Coronary IABP Fem Art (right) Femoral Art L Heart Cath Wire insertion Fem Art (right) Femoral Art Equipment Time Wet End Tester Description Size Mfg Part Number Used/Scraped ARROW INTERNATIONAL CATHETER, FR.7 BALLOON [id number] 11:36 FR 7 Used INC. WEDGE PRESSURE *[id number] TRANSDUCER, TRShocking TechnologiesAVE [id number] 11:36 GANNON KAY * Used W/STOCKCOCK *[id number] 534-620T *[id number] 534-621T *[id number] 534-550S *[id number] WIRE, HYDROSTEER 150CM [id number] 12:14 DAIG/[employer] [employer] 150CM Used ANGLED GLIDE *[id number] BALLOON, FR7.5 25CC INTRA- 12:29 MAQUET FR 7.5 25CC [id number] Used AORTIC BALLOON, FR7.5 40CC [id number] 12:44 MAQUET FR 7.5 40CC Used SENSATION PLUS 01U *[id number] 11:36 MED[employer] PACK, CCL CUSTOM * Used *[id number] 11:36 [employer] PACER PEN, SKIN DUAL W/ RULER * Used *[id number] [id number] 11:36 [employer] WIRE, 3MMJ .035 180CM 180CM Used *[id number] 11:36 NAMIC MANIFOLD, 2 PORT * Used *[id number] 11:36 NAMIC MANIFOLD, 4 PORT * Used *[id number] 11:36 NYCOMED OMNIPAQUE, 350 MG, 150ML 150ML [id number] Used [id number] 11:36 BAIG MEDICAL BLANKET,WARM AIR CCL * Used *[id number] [id number] 11:36 TERUMO MEDICAL SHEATH, FR6 TERUMO (10CM) FR 6 Used *3987722 [id number] 11:36 TERUMO MEDICAL SHEATH, FR7 TERUMO (10CM) FR 7 Used *[id number] History: Current Medications Medication Dosage/Unit Route Frequency Last Date/Time Taken ASA History: Allergies Allergy Reaction No Known Allergies History: Risk Factors Family History of Hypertension Dyslipidemia Previous NV Previous Heart Failure Premature CAD Yes Yes No No No Prior Valve Prior PCI Prior CABG Surgery No No No Cerebrovascular Peripheral Artery Chronic Lung On Dialysis Diabetes Disease Disease Disease No Yes No No No History: Risk Factors Selection Items Hyperlipidemia History: Symptoms/Diagnosis Selection Items Chest pain SOB History: Stress Tests Stress or Imaging Studies Performed No History: Other Disease Selection Items HTN History: Other Current Smoker Method Quit Packs a Day Years Used Pack Years No Cigarettes 20 Years Ago 1 50 50 Labs Hgb (g/dl) Hct (%) RBC (MIL/MM3) WBC (l/cumm) Platelets (thousands) 11.60-17.00 35.00-51.00 4.00-5.90 4.00-11.00 150.00-450.00 11.6 35.2 3.7 8.8 277 Glucose (mg/dl) BUN (mg/dl) Creatinine (mg/dl) BUN:Creatinine (1:x) 74.00-106.00 7.00-18.00 0.50-1.30 10.00-20.00 95 14 0.8 17.5 Na (meq/l) K (meq/l) Cl (meq/l) CO2 (mmol/L) Ca (mg/dl) 136.00-145.00 3.50-5.10 98.00-107.00 21.00-32.00 8.50-10.10 139 3.9 108 31 8.3 PT (sec) PTT (sec) INR (PTT:PT) 9.80-11.60 24.30-30.10 0.90-1.10 10.4 27.5 0.9 Troponin I (ng/ml) Troponin T (ng/ml) CPK (u/l) CPK-MB (ng/ML) 0.02-0.05 0.40-2.10 26.00-308.00 0.50-3.60 0.02 0.02 70 Not Drawn Medication Medication Total Dose (Bolus/Oral) Medication Total Dosage/Unit 1% XYLOCAINE 20 mL FENTANYL 25 mcg HEPARIN 2500 units VERSED 1 mg Medications (Bolus/Oral) Medication Time Given Dosage/Unit Administered By Reason FENTANYL 06/01/2017 11:47:00 AM 25 mcg López Thompson RN 25 mcg FENTANYL given in lab by López Thompson RN in Left Forearm via Peripheral IV. Ordered by Demario Hunt. VERSED 06/01/2017 11:48:00 AM 1 mg López Thompson RN 1 mg VERSED given in lab by López Thompson RN in Left Forearm via Peripheral IV. Ordered by Atilio Hunt. 1% XYLOCAINE 06/01/2017 11:50:39 AM 20 mL Demario Hunt 20 mL 1% XYLOCAINE given in lab by Demario Hunt in Right Groin via Subcutaneous. Ordered by Demario Hunt. HEPARIN 06/01/2017 12:33:32 PM 2500 units López Thompson RN 2500 units HEPARIN given in lab by López Thompson RN in Left Antecubital via Peripheral IV. Ordered by Demario Hunt. Medication (Drip) Medication Time Given Dosage/Unit Concentration/Unit Diluent (ml) Solution HEPARIN DRIP 06/01/2017 12:35:40 PM 700 units/hr 03883 units 250 D5W 700 units/hr HEPARIN DRIP given in lab by Yue Lopez RN in Left Forearm via Peripheral IV. Pump /Drip Flow = 7 ml/hr [place] D5[place] [address] units in 250 ml. Ordered by Demario Hunt. Initial Case Assessment Cardiovascular HR Rhythm NIBP Chest Pain 74 SR 167/73 0 Edema Present Skin color Skin None Normal Warm Dry Circulatory - Right Pulses Dorsalis Pedis Posterior Tibial Femoral d d 1 Scale (0,1,2,3,4,d) Circulatory - Left Pulses Dorsalis Pedis Posterior Tibial Femoral d d 1 Scale (0,1,2,3,4,d) Circulatory - Lower Extremities Color Lower Right Color Lower Left Normal Normal Neurological State Oriented to time-place- Alert Moves all extremities person Respiration - General Respiration Rate SpO2 (%) (B/min) 19 98 Chronological Log Time Study Chronological Log 10:50:19 Patient arrived via Bed. 10:56:26 Patient Name, D.O.B, / Armband Verified By R.N. 10:56:27 Consent signed by the physician and the patient and verified by the Plumber Assistant staff. 10:56:28 Pre-op and post- op instructions given; patient acknowledges understanding of instructions. 10:56:28 Verbal Stimulation=2 Physical Stimulation=2 Airway=2 Respiration=2 TOTAL=8. (0=absent, 1=li mited, 2=present) 11:00:29 Presedation assessment performed by Plumber Assistant RN. 11:00:33 Allens test performed on the right radial and ulnar artery. 11:00:38 Patient has been NPO for More than 6Hrs. 11:00:39 Skin Breakdown- none per patient. 11:00:51 Patient Warmer Placed on the Table. 11:00:54 Ronny Prominences Protected 11:01:10 A # 20 IV was noted in the Forearm (left). Grade = 0 11:14:29 History and physical on the chart or being dictated. Vitals capture started with the following parameters, Patient=Adult, Interval=5 min, Initial Pr fddkem=445 mmHg, 11:29:24 Deflation Rate=5 mmHg, Cuff placed on Right Arm 11:30:20 Reference ECG taken 11:30:35 HR=78 bpm, PQIV=834/69 mmhg, SpO2=97.0 %, Resp=19 B/min, Pain=0, Remigio=10, Pathak=2 11:35:07 HR=77 bpm, RTNL=048/73 mmhg, SpO2=97.0 %, Resp=19 B/min, Pain=0, Remigio=10, Pathak=2 Assessment: Initial Case, HR=74 BPM, Rhythm=SR, MKJO=809/73 mmhg, Chest Pain=0, Edema=None, Col or=Normal, Skin = Warm, Dry Right Pulses: Naeem Ped=d, Post Tib=d, Femoral=1 Left Pulses: Naeem Ped=d, Post Tib=d, Femoral=1 11:36:31 Lower Right Extremities: Color=Normal Lower Left Extremities: Color=Normal Neurological: State=Alert, Ox3, STOLL Respiration: Resp=19 B/min, SpO2=98 % 11:39:10 Bilateral groins prepped with 2% chlorhexidine, and with a 3 min. waiting time. 11:40:06 HR=77 bpm, KKJM=421/77 mmhg, SpO2=97.0 %, Resp=18 B/min, Pain=0, Remigio=10, Pathak=2 11:43:18 Pressure channel 1 zeroed. 11:45:00 MD arrived. 11:45:07 HR=77 bpm, YWUJ=341/73 mmhg, SpO2=96.0 %, Resp=14 B/min, Pain=0, Remigio=10, Pathak=2 11:45:45 Pressure channel 2 zeroed. 11:47:00 25 mcg FENTANYL given in lab by López Thompson RN in Left Forearm via Peripheral IV. Ordered by Demario Hunt. 11:48:00 1 mg VERSED given in lab by López Thompson RN in Left Forearm via Peripheral IV. Ordered by Demario Goddard. Time Out. Correct patient, correct procedure,correct physician, power injector not loaded with contrast with surgical 11:49:28 team present. Time Out Concurred by , individual staff in procedure 11:49:31 Case Start 11:50:06 HR=79 bpm, JWRY=344/72 mmhg, SpO2=94.0 %, Resp=13 B/min, Pain=0, Remigio=10, Pathak=2 11:50:39 20 mL 1% XYLOCAINE given in lab by Demario Hunt in Right Groin via Subcutaneous. Ordered by Demario Hunt. 11:50:47 Access site was Right Femoral Artery. 11:51:05 A SHEATH, FR6 TERUMO (10CM) FR 6 was advanced into the Fem Art (right) using the Percutaneo us technique. 11:51:30 Access site was Right Femoral Vein. 11:51:34 A SHEATH, FR7 TERUMO (10CM) FR 7 was advanced into the Fem Vein (right) using the Percutane ous technique. 11:51:40 A CATHETER, FR.7 BALLOON WEDGE PRESSURE FR 7 was inserted via Fem Vein (right) Recorded Pressure: RA, HR=78, Condition=Condition 1 11:52:58 (Right Atrium) RA 7 Recorded Pressure: RV, HR=75, Condition=Condition 1 11:53:22 (Right Ventricle) RV 30/8 Recorded Pressure: MPA, HR=72, Condition=Condition 1 11:54:33 (Main Pulmonary Artery) MPA 09/07/17 11:54:55 Saturation: Site=PA (Pulmonary Artery) , O2=66.9 %, Hgb=11.6 gm/dl, Condition=Condition 1. Used in calculation. 11:55:07 HR=79 bpm, KFVI=141/65 mmhg, SpO2=90.0 %, Resp=20 B/min, Pain=0, Remigio=10, Pathak=2 11:55:28 Saturation: Site=FA (Femoral Artery) , O2=91.8 %, Hgb=11.6 gm/dl, Condition=Condition 1. Us ed in calculation. Recorded Pressure: PCW, HR=79, Condition=Condition 1 11:56:21 (Pulmonary Capillary Wedge) PCW 138 11:57:00 Catheter was removed A JL 4.0 INFINITI CATHETER FR 6 was advanced over a wire. OMNIPAQUE, 350 MG, 150ML 150ML was us ed for 11:58:13 injections. 11:59:00 The LCA was injected and visualized at various angles. OMNIPAQUE, 350 MG, 150ML 150ML used . Recorded Pressure: Ao, HR=77, Condition=Condition 1 11:59:24 (Aorta) Ao 138/46/81 12:00:06 HR=76 bpm, BTDT=728/68 mmhg, SpO2=91.0 %, Resp=16 B/min, Pain=0, Remigio=10, Pathak=2 Recorded Pressure: Ao, HR=74, Condition=Condition 1 12:00:25 (Aorta) Ao 155/64/100 After removing the current catheter a JR 4.0 INFINITI CATHETER FR 6 was advanced over a WIRE, 3 MMJ .035 180CM 12:04:10 180CM. 12:04:12 The RCA was injected and visualized at various angles. OMNIPAQUE, 350 MG, 150ML 150ML used . 12:05:09 HR=78 bpm, FUGR=341/61 mmhg, SpO2=94.0 %, Resp=20 B/min, Pain=0, Remigio=10, Pathak=2 12:05:20 Catheter was removed 12:10:08 HR=75 bpm, BLSK=094/65 mmhg, SpO2=93.0 %, Resp=19 B/min, Pain=0, Remigio=10, Pathak=2 A PIGTAIL STR. INFINITI CATHETER FR 5 was advanced over a wire. OMNIPAQUE, 350 MG, 150ML 150ML was used for 12:11:31 injections. 12:13:50 A WIRE, HYDROSTEER 150CM ANGLED GLIDE 150CM was inserted via Fem Art (right). 12:15:07 HR=75 bpm, FHGN=284/67 mmhg, SpO2=93.0 %, Resp=19 B/min, Pain=0, Remigio=10, Pathak=2 12:16:47 The Aortic was injected at 12 cc/sec for a total of 42. OMNIPAQUE, 350 MG, 150ML 150ML used . 12:20:08 HR=74 bpm, MHSS=339/66 mmhg, SpO2=94.0 %, Resp=15 B/min, Pain=0, Remigio=10, Pathak=2 12:23:01 Catheter was removed 12:24:03 Sheath exchanged for intra-aortic balloon insertion. 12:25:09 HR=74 bpm, RFZG=052/66 mmhg, SpO2=95.0 %, Resp=15 B/min, Pain=0, Remigio=10, Pathak=2 An BALLOON, FR7.5 40CC SENSATION PLUS FR 7.5 40CC was advanced to the descending aorta. Proper placement 12:29:01 was confired under fluoroscopy and the balloon was sutured in place. Ratio = 1. Augmented BP ~S YS~/~ANDRY~ 12:30:13 HR=75 bpm, UQGN=981/65 mmhg, SpO2=94.0 %, Resp=12 B/min, Pain=0, Remigio=10, Pathak=2 12:31:59 Case End 12:32:09 In the Fem Art (right) the sheath was sutured in place by Mildred Neal, RT(R). 12:32:19 Catheter(s) removed without difficulty 12:32:21 Sterile dressing applied to site 12:32:22 No case complications noted. 12:32:22 Cine recording checked. 12:32:24 Bedside Report will be given. 12:32:26 Contrast Scanned 12:32:27 Verbal Stimulation=2 Physical Stimulation=2 Airway=2 Respiration=2 TOTAL=8. (0=absent, 1=l imited, 2=present) 12:32:42 A Left Heart Cath was performed. 12:33:32 2500 units HEPARIN given in lab by López Thompson RN in Left Antecubital via Peripheral IV. Ordered by Demario Hunt. 12:35:08 HR=75 bpm, VESE=811/89 mmhg, SpO2=93.0 %, Resp=23 B/min, Pain=0, Remigio=10, Patahk=2 700 units/hr HEPARIN DRIP given in lab by Yue Lopez RN in Left Forearm via Peripheral I V. Pump/Drip Flow = 7 12:35:40 ml/hr [place] D[place] [address] units in 250 ml. Ordered by Demario Hunt. 12:38:14 Patient moved to stretcher 12:40:02 HR=75 bpm, MKOX=193/78 mmhg, SpO2=95.0 %, Resp=19 B/min, Pain=0, Remigio=10, Pathak=2 12:44:59 HR=74 bpm, NIBP=88/49 mmhg, SpO2=93.0 %, Resp=15 B/min, Pain=0, Remigio=10, Pathak=2 12:50:39 HR=75 bpm, NIBP=80/43 mmhg, SpO2=95.0 %, Resp=14 B/min, Pain=0, Remigio=10, Pathak=2 12:55:00 Vitals capture stopped. End Study - Contrast Media Used In Study Contrast Total Opened (mL) Total Used (mL) Total Wasted (mL) Omnipaque 70 70 0 End Study - Maximum Contrast Load Max Contrast Load (mL) 378.1 End Study - Radiation Exposure Fluoro Time (minutes) 9.2 End Study - Patient Disposition Complications Transferred To Interventional Outcome No Critical Care Bed No attempt made
--- NOTE | 2017-06-01 13:17 | MA ---
cc: MARY FERREIRA DATE: 06/01/2017 PROCEDURE PERFORMED 1. Fluoroscopy with interpretation. 2. Coronary angiography. 3. Right heart catheterization. 4. Aortography. 5. Intra-aortic balloon pump placement. METHOD The risks, benefits and alternatives were discussed with the patient. The patient understood and consented to the procedure. The patient was brought into the catheterization lab and placed on the catheterization table. The right groin was prepped and draped in a sterile fashion. The right common femoral artery was cannulated. A 6 Guatemalan, 11 cm sheath was placed without difficulty. The right femoral vein was accessed and a 7 Guatemalan, 11 cm sheath was placed without difficulty. RIGHT HEART CATHETERIZATION A 7 Guatemalan Hampton-Jacy pulmonary arterial catheter is advanced through the right femoral venous sheath to the level of the right atrium under fluoroscopic guidance. Hemodynamics are as follows: 1. Right atrium 7 mmHg. 2. Right ventricular pressure measured at 30/5 mmHg. 3. Pulmonary arterial pressure measured at 30/10 mmHg. 4. Pulmonary capillary wedge pressure 13 mmHg. 5. Cardiac output 5.3 liters per minute. 6. Cardiac index 3.2 liters per minute per meter squared. CORONARY ANGIOGRAPHY The left coronary circulation is selectively engaged with a 6 Guatemalan JL4 catheter. The right coronary circulation is selectively engaged with a 6 Guatemalan JR4 catheter. Angiography findings are as follows: 1. The left main ostia has 95%, heavily calcified. There is dampening and ventricularization of the waveform upon engagement. 2. The left anterior descending coronary artery is also moderately calcified but has only minor luminal irregularities. There are two moderate size diagonal branch branches that have mild luminal irregularities. 3. The left circumflex is small caliber size, 80% calcific ostial stenosis. There is a first obtuse marginal branch and sub-branches which is a less than 2 mm caliber size vessel that is 95% subtotally occluded. The remainder of the circumflex is very small. 4. The right coronary is a dominant vessel giving rise to a posterior descending and posterolateral branch. The mid right coronary is 95% subtotally occluded with a tandem 90% stenosis. The remainder of the vessel has mild luminal irregularities. DESCENDING AORTOGRAPHY A 6 Guatemalan straight pigtail was advanced to the arch of the aorta. Aortography was performed in the left anterior oblique view. Subclavian origin originates on the ascending arch and is patent. The aortic arch and thoracic aorta is mildly dilated but heavily calcified in addition to the ascending aorta which is heavily calcified. The renal arteries appear to be patent, not well-visualized. There is a moderate to large size infrarenal aortic aneurysm with heavy calcium present. 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 The remainder of the iliac arteries on both sides are not well-visualized. INTRA-AORTIC BALLOON PUMP PLACEMENT Given the severity of stenosis in addition to the patient's intermittent resting symptoms in the setting of severe aortic stenosis, we elected to proceed with placement of an intra-aortic balloon pump. We attempted to keep the balloon pump above the renal arteries which would not impact the majority of the aneurysm down below. We are safely able to navigate a 34 cc balloon pump just beyond the takeoff of the left subclavian artery at one-to-one inflation. Appropriate augmentation noted. CONCLUSIONS 1. 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 2. Severe aortic stenosis. 3. Normal cardiac output and index. 4. Normal left and right side filling pressures and pulmonary pressures. 5. Moderate to large infrarenal aortic aneurysm. 6. Successful intra-aortic balloon pump placement. PLAN This is a very complex case. I have asked Dr. Martinez, cardiothoracic surgeon, for his input. He was available to review the films immediately with full consultation to follow. 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 We will have to decide ultimately how to handle her case, whether it be a combination of coronary bypass and traditional AVR or high-risk PCI followed by TAVR. The latter of which would be difficult and likely require balloon aortic valvuloplasty and subsequent Impella placement. Will review the case with the cardiothoracic surgeon in addition to the TAVR team, the family, and make our best educated decision. [facility]arin drip [facility] be initiated [facility] BONI Billingsley/GENA /12:41 PM /12:53 PM AAMIR
[2017-06-01 13:25] LABS: HEMATOCRIT 34.1 % (35.0-46.0); MEAN CELL VOLUME 95.3 FL (80.0-100.0); MEAN CORPUSCULAR HEMOGLOBIN 30.5 PG (27.0-34.0); MEAN CORPUSCULAR HGB CONC 31.9 % (32.0-36.0); PLATELET COUNT 263 TH/MM3 (150-450); RED BLOOD COUNT 3.57 MIL/MM3 (4.00-5.30); REVIEW FLAG FINAL; WHITE BLOOD COUNT 8.1 TH/MM3 (4.0-11.0)
--- NOTE | 2017-06-01 13:33 | ECHRPT ---
Indication: as CONCLUSIONS Limited study to evaluate the aortic valve stenosis. Diffuse calcification of the aortic valve. Aortic valve mean gradient is 46 mmHg. Aortic valve area is 0.68 cm. Aortic valve Vmax is 471Trace aortic valve regurgitation. Diffuse calcification of the aortic valve. Aortic valve mean gradient is 46 mmHg. Aortic valve area is 0.68 cm. Aortic valve Vmax is 471. Severe aortic valve stenosis. BP: / HR: Rhythm: MEASUREMENTS (Male / Female) Normal Values Technical Quality:Good DOPPLER AV Peak Velocity 471.0 cm/s AV Peak Gradient 88.7 mmHg AV Mean Gradient 46.0 mmHg AV Velocity Time Integral 114.0 cm LVOT Peak Velocity 61.7 cm/s LVOT Peak Gradient 1.5 mmHg LVOT Velocity Time Integral 15.8 cm AV Area Cont Eq vti 0.7 cm AV Area Cont Eq pk 0.6 cm FINDINGS AORTIC VALVE Trace aortic valve regurgitation. Diffuse calcification of the aortic valve. Aortic valve mean gradient is 46 mmHg. Aortic valve area is 0.68 cm. Aortic valve Vmax is 471. Severe aortic valve stenosis. Demario Hunt MD, FACC (Electronically Signed) Final Date:01 June 2017 13:33
[2017-06-01 13:37] LABS: APTT (PATIENT) 57.1 SEC (24.3-30.1); PROTHROMBIN TIME - PATIENT 11.1 SEC (9.8-11.6)
--- NOTE | 2017-06-01 14:33 | PD.CONS ---
[facility] Service Critical Care Medicine Consult Requested By Dr. Hunt Reason for Consult Severe three-vessel coronary disease with current one-to-one IABP Primary Care Physician Deanne Wade MD History of Present Illness This is a 86-year-old female. Date of admission 05/30/2017. Date of consultation 06/01/2017. Past medical history includes hypertension, dyslipidemia, hypothyroidism and carotid vascular disease with osteoarthritis and melanoma. She originally presented to [facility] with chest pain and epigastric pain. He originally described this as indigestion and she taken Gas- X and Maalox with some moderate improvement. Symptoms seem more cardiac as with his exertion with bilateral arm pain. Patient nuclear medicine stress tested revealed no definite reversibility to suggest ischemia, Mild hypokinesis with ejection fraction 47%. Echocardiogram 05/30 showed moderate to severe aortic stenosis with ejection fraction of 55-60%. Bilateral atrial enlargement. Grade 1 diastolic dysfunction. Aortic valve 0.68 cm. Today, patient with cardiac catheterization.. Ejection fraction 55% Right Atrium 7 mmHg. RVP 30/5 mmHg, PEEP 30/10 mmHg. Pulmonary capillary Wedge pressure 13 mmHg. Cardiac output 5.3 L per minute. Cardiac index 3 L per m/m . Left main 95%. LAD 20%. Diagonal 20%. Circumflex 80%. OM 90%. RCA 95%. Large infrarenal AAA. Intra-abdominal pump placed one-to-one. We are asked to evaluate the patient post procedure. Currently denying chest pain and shortness of breath. Patient undergone imaging of carotid arteries and CT thorax. Dr. Juan Hunt will decide plan of care at that time Review of Systems Constitutional: COMPLAINS OF: Fatigue, DENIES: Fever, Weight gain, Weight loss Endocrine: DENIES: Polydipsia, Polyuria Eyes: DENIES: Blurred vision Ears, nose, mouth, throat: DENIES: Tinnitus, Odynophagia Respiratory: DENIES: Apneas Cardiovascular: COMPLAINS OF: Chest pain, Claudication, DENIES: Lower Extremity Edema Gastrointestinal: COMPLAINS OF: Abdominal pain, Nausea, DENIES: Vomiting Genitourinary: DENIES: Urinary frequency Musculoskeletal: COMPLAINS OF: Joint pain Integumentary: DENIES: Abnormal pigmentation Hematologic/lymphatic: DENIES: Bruising Immunologic/allergic: DENIES: Eczema Neurologic: DENIES: Headache Psychiatric: COMPLAINS OF: Anxiety, DENIES: Confusion Past Family Social History Allergies: Coded Allergies: No Known Allergies (Verified , 05/30/17) Past Medical History Melanoma Osteoarthritis History mitral valve prolapse History of infrarenal AAA 4 cm Carotid artery disease Hypothyroidism Aspirin use Past Surgical History History of bladder sling Bilateral cataracts Tonsillectomy Dental implants Reported Medications Aspirin 81 mg daily Levothyroxine 75 mcg by mouth daily Active Ordered Medications Reviewed in EMR Family History Mother with varicose veins. No heart disease. Father unknown. Social History Quit tobacco 20 years ago. 50 pack years. One shot of whiskey right daily. No IV drug use. Physical Exam Vital Signs Vital Signs Date Time Temp Pulse Resp B/P (MAP) Pulse Ox O2 Delivery O2 Flow Rate FiO2 06/01/17 13:00 158/41 (123) 06/01/17 13:00 77 06/01/17 13:00 97.7 77 16 153/69 (97) 98 06/01/17 10:00 76 06/01/17 09:00 78 06/01/17 08:00 78 06/01/17 08:00 97.5 76 16 149/83 (105) 97 06/01/17 07:00 84 06/01/17 06:02 76 06/01/17 05:32 89 06/01/17 04:00 97.9 81 154/75 (101) 96 06/01/17 04:00 78 06/01/17 03:00 72 06/01/17 02:00 76 06/01/17 01:06 97.6 86 136/68 (90) 98 06/01/17 01:00 86 06/01/17 00:00 100 05/31/17 23:00 78 05/31/17 22:00 84 05/31/17 21:00 90 05/31/17 20:42 21 05/31/17 20:00 78 05/31/17 20:00 97.9 78 146/63 (90) 99 05/31/17 19:00 87 05/31/17 18:30 97.7 83 16 85/63 (70) 96 05/31/17 16:00 96.7 76 18 92/55 (67) 98 05/31/17 15:11 73 Physical Exam GENERAL: 86-year-old female, appears younger than stated age currently resting in bed in no acute distress SKIN: Warm and dry. Well perfused. HEAD: Atraumatic. Normocephalic. EYES: Pupils equal and round about 3 mm bilaterally and reactive. No scleral icterus. No injection or drainage. ENT: No nasal bleeding or discharge. Mucous membranes pink and moist. Oropharynx without erythema NECK: Trachea midline. No JVD. CARDIOVASCULAR: Regular rate and rhythm. S1, S2. No S4.3. Pansystolic murmur 3 out of 6. Appreciate counterpulsation injury balloon pump RESPIRATORY: No accessory muscle use. Clear to auscultation. Breath sounds equal bilaterally. GASTROINTESTINAL: Abdomen soft, non-tender, nondistended. Hepatic and splenic margins not palpable. MUSCULOSKELETAL: Extremities without significant peripheral edema. Right groin is clean dry and intact. Dopplerable dorsalis pedis/posterior tibialis bilaterally NEUROLOGICAL: Awake and alert. No obvious cranial nerve deficits. Motor grossly within normal limits. Five out of 5 muscle strength in the arms and legs. Normal speech. PSYCHIATRIC: Appropriate mood and affect; insight and judgment normal. Laboratory Laboratory Tests Test 06/01/17 13:15 White Blood Count 8.1 Red Blood Count 3.57 Hemoglobin 10.9 Hematocrit 34.1 Mean Corpuscular Volume 95.3 Mean Corpuscular Hemoglobin 30.5 Mean Corpuscular Hemoglobin Concent 31.9 Red Cell Distribution Width 15.0 Platelet Count 263 Mean Platelet Volume 8.4 Prothrombin Time 11.1 Prothromb Time International Ratio 1.0 Activated Partial Thromboplast Time 57.1 Result Diagram: 06/01/17 1315 05/30/17 1220 Imaging Last Impressions Myocardial Perfusion Scan Nuc Med 05/31/17 0600 Signed Impressions: Service Date/Time: May 08:36 - CONCLUSION: 1. No definite reversibility to suggest ischemia. 2. Mild hypokinesis with ejection fraction 47%%. RISK CATEGORY: Intermediate (1-3%% Annual Mortality Rate) Alan Rodriguez MD Chest X-Ray 05/30/17 1218 Signed Impressions: Service Date/Time: Tuesday, May 30, 2017 12:28 - CONCLUSION: No acute disease. Matt Mobley MD FACR Assessment and Plan Assessment and Plan Neuro/Psych: Insomnia Acetaminophen 500 mg every 4 hours when necessary fever or pain Alprazolam 0.25 mg every 8 hours when necessary anxiety Melatonin 5 mg at night when necessary insomnia CV: Severe aortic stenosis valve area 0.68 cm Three-vessel coronary artery disease Dyslipidemia Carotid artery disease Infrarenal AAA Grade 1 diastolic dysfunction/chronic Status post cardiac catheterization. Ejection fraction 55%. Grade 1 diastolic dysfunction. Left main 95% stenosis. LAD 20% stenosis. Diagonal 20% stenosis. ON 99% stenosis Circumflex 80% stenosis. RCA 95% stenosis. Currently with IABP at 1-1 Currently on aspirin 325 mg by mouth daily Dr. Martinez to evaluate. Will get carotid ultrasound, CT chest and reevaluate Lipid panel will be ordered. Previous rosuvastatin 5 mg by mouth daily Resp: History of tobaccoism Nasal cannula to maintain saturations greater than or equal to 92% Incentive spirometry while awake GI: Patient is currently nothing by mouth status post cardiac catheterization Famotidine for GI prophylaxis Docusate sodium/senna 1 tablet twice a day for bowel regimen : Bowers catheter for accurate I's and O's in a critically ill patient with an intra-aortic pump Endo: Hypothyroidism Continue levothyroxine 75 mics grams by mouth daily. Recheck TSH in a.m. Renal: Monitor urine output Accurate I's and O's Creatinine currently within normal limits Heme: Normocytic anemia History melanoma Monitor CBC daily. Follow trends. Currently on heparin drip ID: Monitor for infection MSK: Osteoporosis Physical therapy evaluate and treat. FEN: Replace electrolytes as clinically indicated Access - Utilize peripheral IV. Central line if indicated - Right femoral IABP placed 06/01 Prophylaxis - GI - DVT - Level III consult Code Status Full code Discussed Condition With Dr. Martinez. Patient. Care plan discussed and all questions answered. Harish Jesus MD Jun 01, 2017 14:33
[2017-06-01] MEDS ORDERED: ALPRAZolam 0.25 MG TAB PO PRN (14:45)
[2017-06-01] MEDS ORDERED: METOPROLOL TARTRATE 25 MG TAB PO SCH (14:45)
[2017-06-01] MEDS ORDERED: PAPAVERINE INJ 60 MG, NITROGLYCERIN INJ 100 MCG, DILTIAZEM INJ 100 MG in SODIUM CHLORID... IRRIGATION SCH (14:45)
[2017-06-01] MEDS ORDERED: CEFAZOLIN INJ 500 MG in SODIUM CHLORIDE 0.9% IRR BTL 500 ML IRRIGATION SCH (14:45)
[2017-06-01] MEDS ORDERED: SODIUM CHLORIDE 0.9% FLUSH 10 ML FLUSH IV FLUSH PRN (14:45)
[2017-06-01] MEDS ORDERED: ceFAZolin 2 GM PREMIX 50 ML IV SCH (14:45)
[2017-06-01] MEDS ORDERED: INSULIN REGULAR (IV INFUSION) 100 UNITS in SODIUM CHLORIDE 0.9% INJ 100 ML IV SCH (14:45)
[2017-06-01] MEDS ORDERED: CHLORHEXIDINE GLUCONATE 4% SOLN 120 ML BTL TOPICAL SCH (14:45)
--- NOTE | 2017-06-01 14:48 | PD.CAR.PN ---
CVT Progress Note Subjective/Hospital Course: sts data discussed with pt RISK SCORES About the STS Risk Calculator Procedure: AV Replacement + CAB Risk of Mortality: 15.996% Morbidity or Mortality: 52.763% Long Length of Stay: 30.059% Short Length of Stay: 4.088% Permanent Stroke: 3.255% Prolonged Ventilation: 52.371% DSW Infection: 0.541% Renal Failure: 13.055% Reoperation: 15.544% Objective: Vital Signs Date Time Temp Pulse Resp B/P (MAP) Pulse Ox O2 Delivery O2 Flow Rate FiO2 06/01/17 13:00 158/41 (123) 06/01/17 13:00 77 06/01/17 13:00 97.7 77 16 153/69 (97) 98 06/01/17 10:00 76 06/01/17 09:00 78 06/01/17 08:00 78 06/01/17 08:00 97.5 76 16 149/83 (105) 97 06/01/17 07:00 84 06/01/17 06:02 76 06/01/17 05:32 89 06/01/17 04:00 97.9 81 154/75 (101) 96 06/01/17 04:00 78 06/01/17 03:00 72 06/01/17 02:00 76 06/01/17 01:06 97.6 86 136/68 (90) 98 06/01/17 01:00 86 06/01/17 00:00 100 05/31/17 23:00 78 05/31/17 22:00 84 05/31/17 21:00 90 05/31/17 20:42 21 05/31/17 20:00 78 05/31/17 20:00 97.9 78 146/63 (90) 99 05/31/17 19:00 87 05/31/17 18:30 97.7 83 16 85/63 (70) 96 05/31/17 16:00 96.7 76 18 92/55 (67) 98 05/31/17 15:11 73 Labs: Laboratory Tests Test 06/01/17 13:15 White Blood Count 8.1 TH/MM3 (4.0-11.0) Red Blood Count 3.57 MIL/MM3 (4.00-5.30) Hemoglobin 10.9 GM/DL (11.6-15.3) Hematocrit 34.1 % (35.0-46.0) Mean Corpuscular Volume 95.3 FL (80.0-100.0) Mean Corpuscular Hemoglobin 30.5 PG (27.0-34.0) Mean Corpuscular Hemoglobin Concent 31.9 % (32.0-36.0) Red Cell Distribution Width 15.0 % (11.6-17.2) Platelet Count 263 TH/MM3 (150-450) Mean Platelet Volume 8.4 FL (7.0-11.0) Prothrombin Time 11.1 SEC (9.8-11.6) Prothromb Time International Ratio 1.0 RATIO Activated Partial Thromboplast Time 57.1 SEC (24.3-30.1) Result Diagram: 06/01/17 1315 05/30/17 1220 Lali Verdin Jun 01, 2017 14:48
[2017-06-01 16:53] LABS: HEMOGLOBIN A1b 0.7 %; HEMOGLOBIN Ao 84.5 %; HEMOGLOBIN F 1.3 %; HEMOGLOBIN LA1C 1.8 %; HEMOGLOBIN P3 3.7 %
--- NOTE | 2017-06-01 17:09 | RADRPT ---
EXAM DATE/TIME: 06/01/2017 15:12 [facility] COMPARISON: No previous studies available for comparison. EXTERNAL COMPARISON : [facility], [facility], May 17, 2012[facility], [facility], May 17, 2012. INDICATIONS : PreOp cardiac surgery. MEDICAL HISTORY : Hypercholesterolemia. Arthritis. Thyroid disease. Hearing loss. Aortic mitral valve disease. Hyperli pidemia. Dyspnea. Diverticulitis. Abdominal pain. Nausea. SURGICAL HISTORY : section.Tonsillectomy. Abdominal aortic aneurysm repair. ENCOUNTER: Initial ACUITY: 1 day PAIN SCORE: 2/10 LOCATION: Bilateral legs. TECHNIQUE: Venous ultrasound of the left and right leg was performed from the inguinal ligament to the proximal calf. Real-time, color Doppler and spectral tracing, compression and augmentation techniques were us ed. FINDINGS: RIGHT LEG: There is normal compressibility of the deep venous system from the inguinal region to the proximal ca lf. No echogenic clot is seen in the lumen of the common femoral, femoral, popliteal, and posterior tibial veins. There is a normal response of the venous system to proximal and distal augmentation an d respiration. LEFT LEG: There is normal compressibility of the deep venous system from the inguinal region to the proximal ca lf. No echogenic clot is seen in the lumen of the common femoral, femoral, popliteal, and posterior tibial veins. There is a normal response of the venous system to proximal and distal augmentation an d respiration. CONCLUSION: Negative exam. No sonographic or Doppler findings of deep venous thrombosis. Dante Wharton MD on June 01, 2017 at 17:07 Board Certified Radiologist. This report was verified electronically.
--- NOTE | 2017-06-01 17:11 | RADRPT ---
EXAM DATE/TIME: 06/01/2017 15:27 [facility] COMPARISON: No previous studies available for comparison. EXTERNAL COMPARISON : [facility], [facility], May 17, 2012[facility], [facility], May 17, 2012. INDICATIONS : PreOp cardiac surgery. MEDICAL HISTORY : Hypercholesterolemia. Arthritis. Thyroid disease. Hearing loss. Aortic mitral valve disease. Hyperli pidemia. Dyspnea. Diverticulitis. Abdominal pain. Nausea. SURGICAL HISTORY : Tonsillectomy. section. Abdominal aortic aneurysm repair. ENCOUNTER: Initial ACUITY: 1 day PAIN SCORE: 2/10 LOCATION: Bilateral legs. GREATER SAPHENOUS VEIN THIGH: PROXIMAL: Right 4 mm Left 6 mm MID: Right 1 mm Left 3 mm DISTAL: Right 3 mm Left 2 mm CALF: PROXIMAL: Right 1 mm Left 2 mm MID: Right Non-visualized Left 1 mm DISTAL: Right Non-visualized Left 1 mm FINDINGS: The venous system of the lower extremities are patent by color Doppler imaging. Measurements of the leg veins (in mm) are listed above. CONCLUSION: 1. Superficial venous mapping as above. 2. Below the knee, the mid and peripheral portions of the right greater saphenous vein are not visual ized. Dante Wharton MD on June 01, 2017 at 17:08 Board Certified Radiologist. This report was verified electronically.
--- NOTE | 2017-06-01 17:28 | HHI.PR ---
Subjective Remarks Patient was transferred from [facility] to the main [facility]. Underwent cardiac catheterization today with minor results are available in his report Patient is now in the cardiovascular ICU with a balloon pump in place being evaluated by cardiovascular surgery for interventions Patient is scheduled to undergo CAT scans of the chest and abdomen Have discussed with patient and family We'll continue to monitor here in the ICU along with critical care and cardiovascular surgery as well as cardiology Objective Vitals Vital Signs Date Time Temp Pulse Resp B/P (MAP) Pulse Ox O2 Delivery O2 Flow Rate FiO2 06/01/17 16:00 92/26 (93) 06/01/17 16:00 93 06/01/17 15:00 139/34 (104) 06/01/17 14:00 170/55 (136) 06/01/17 13:00 77 06/01/17 13:00 158/41 (123) 06/01/17 13:00 77 06/01/17 13:00 97.7 77 16 153/69 (97) 98 06/01/17 10:00 76 06/01/17 09:00 78 06/01/17 08:00 78 06/01/17 08:00 97.5 76 16 149/83 (105) 97 06/01/17 07:00 84 06/01/17 06:02 76 06/01/17 05:32 89 06/01/17 04:00 97.9 81 154/75 (101) 96 06/01/17 04:00 78 06/01/17 03:00 72 06/01/17 02:00 76 06/01/17 01:06 97.6 86 136/68 (90) 98 06/01/17 01:00 86 06/01/17 00:00 100 05/31/17 23:00 78 05/31/17 22:00 84 05/31/17 21:00 90 05/31/17 20:42 21 05/31/17 20:00 78 05/31/17 20:00 97.9 78 146/63 (90) 99 05/31/17 19:00 87 05/31/17 18:30 97.7 83 16 85/63 (70) 96 I/O 05/31/17 05/31/17 05/31/17 06/01/17 06/01/17 06/01/17 07:00 15:00 23:00 07:00 15:00 23:00 Intake Total 0 ml 360 ml 480 ml Balance 0 ml 360 ml 480 ml Intake Oral 0 ml 360 ml 480 ml # Voids 1 3 4 # Bowel Movements 0 1 Result Diagram: 06/01/17 1315 05/30/17 1220 Other Results Laboratory Tests Test 05/30/17 12:20 05/30/17 12:40 05/30/17 15:45 05/30/17 18:45 Red Blood Count 3.72 MIL/MM3 (4.00-5.30) Monocytes (%) (Auto) 11.2 % (0.0-8.0) Monocytes # (Auto) 1.0 TH/MM3 (0-0.9) Estimat Glomerular Filtration Rate 66 ML/MIN (>89) Troponin I LESS THAN 0.02 NG/ML LESS THAN 0.02 NG/ML LESS THAN 0.02 NG/ML Test 06/01/17 13:15 Red Blood Count 3.57 MIL/MM3 (4.00-5.30) Hemoglobin 10.9 GM/DL (11.6-15.3) Hematocrit 34.1 % (35.0-46.0) Mean Corpuscular Hemoglobin Concent 31.9 % (32.0-36.0) Activated Partial Thromboplast Time 57.1 SEC (24.3-30.1) Imaging Last Impressions Myocardial Perfusion Scan Nuc Med 05/31/17 0600 Signed Impressions: Service Date/Time: May 08:36 - CONCLUSION: 1. No definite reversibility to suggest ischemia. 2. Mild hypokinesis with ejection fraction 47%%. RISK CATEGORY: Intermediate (1-3%% Annual Mortality Rate) Alan Rodriguez MD Chest X-Ray 05/30/17 1218 Signed Impressions: Service Date/Time: Tuesday, May 30, 2017 12:28 - CONCLUSION: No acute disease. Matt Mobley MD FACR Objective Remarks GENERAL: Awake alert and oriented talkative and cooperative appears to be in no acute distress at this time currently has balloon pump in place SKIN: Warm and dry. HEAD: Atraumatic. Normocephalic. EYES: Pupils equal and round. No scleral icterus. No injection or drainage. EOMI ENT: No nasal bleeding or discharge. Mucous membranes pink and moist. Tongue is midline NECK: Trachea midline. No JVD. Supple CARDIOVASCULAR: Regular rate and rhythm. S1-S2 no S3 or S4 cardiac augmentation noted on exam RESPIRATORY: No accessory muscle use. Clear to auscultation. Breath sounds equal bilaterally. GASTROINTESTINAL: Abdomen soft, non-tender, nondistended. Hepatic and splenic margins not palpable. MUSCULOSKELETAL: Extremities without clubbing, cyanosis, or edema. No obvious deformities. Balloon pump in place NEUROLOGICAL: Awake and alert. No obvious cranial nerve deficits. Motor grossly within normal limits. 4 out of 5 muscle strength in the arms and legs. Normal speech. PSYCHIATRIC: Appropriate mood and affect; insight and judgment normal. Procedures MINOR,MARY DATE: 06/01/2017 PROCEDURE PERFORMED 1. Fluoroscopy with interpretation. 2. Coronary angiography. 3. Right heart catheterization. 4. Aortography. 5. Intra-aortic balloon pump placement. METHOD The risks, benefits and alternatives were discussed with the patient. The patient understood and consented to the procedure. The patient was brought into the catheterization lab and placed on the catheterization table. The right groin was prepped and draped in a sterile fashion. The right common femoral artery was cannulated. A 6 Chadian, 11 cm sheath was placed without difficulty. The right femoral vein was accessed and a 7 Chadian, 11 cm sheath was placed without difficulty. RIGHT HEART CATHETERIZATION A 7 Chadian [place] pulmonary arterial catheter is advanced through the right femoral venous sheath to the level of the right atrium under fluoroscopic guidance. Hemodynamics are as follows: 1. Right atrium 7 mmHg. 2. Right ventricular pressure measured at 30/5 mmHg. 3. Pulmonary arterial pressure measured at 30/10 mmHg. 4. Pulmonary capillary wedge pressure 13 mmHg. 5. Cardiac output 5.3 liters per minute. 6. Cardiac index 3.2 liters per minute per meter squared. CORONARY ANGIOGRAPHY The left coronary circulation is selectively engaged with a 6 Chadian JL4 catheter. The right coronary circulation is selectively engaged with a 6 Chadian JR4 catheter. Angiography findings are as follows: 1. The left main ostia has 95%, heavily calcified. There is dampening and ventricularization of the waveform upon engagement. 2. The left anterior descending coronary artery is also moderately calcified but has only minor luminal irregularities. There are two moderate size diagonal branch branches that have mild luminal irregularities. 3. The left circumflex is small caliber size, 80% calcific ostial stenosis. There is a first obtuse marginal branch and sub-branches which is a less than 2 mm caliber size vessel that is 95% subtotally occluded. The remainder of the circumflex is very small. 4. The right coronary is a dominant vessel giving rise to a posterior descending and posterolateral branch. The mid right coronary is 95% subtotally occluded with a tandem 90% stenosis. The remainder of the vessel has mild luminal irregularities. DESCENDING AORTOGRAPHY A 6 Chadian straight pigtail was advanced to the arch of the aorta. Aortography was performed in the left anterior oblique view. Subclavian origin originates on the ascending arch and is patent. The aortic arch and thoracic aorta is mildly dilated but heavily calcified in addition to the ascending aorta which is heavily calcified. The renal arteries appear to be patent, not well-visualized. There is a moderate to large size infrarenal aortic aneurysm with heavy calcium present. 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 The remainder of the iliac arteries on both sides are not well-visualized. INTRA-AORTIC BALLOON PUMP PLACEMENT Given the severity of stenosis in addition to the patient's intermittent resting symptoms in the setting of severe aortic stenosis, we elected to proceed with placement of an intra-aortic balloon pump. We attempted to keep the balloon pump above the renal arteries which would not impact the majority of the aneurysm down below. We are safely able to navigate a 34 cc balloon pump just beyond the takeoff of the left subclavian artery at one-to-one inflation. Appropriate augmentation noted. CONCLUSIONS 1. Severe left main and three vessel circle coronary disease. 2. Severe aortic stenosis. 3. Normal cardiac output and index. 4. Normal left and right side filling pressures and pulmonary pressures. 5. Moderate to large infrarenal aortic aneurysm. 6. Successful intra-aortic balloon pump placement. PLAN This is a very complex case. I have asked Dr. Martinez, cardiothoracic surgeon, for his input. He was available to review the films immediately with full consultation to follow. 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 We will have to decide ultimately how to handle her case, whether it be a combination of coronary bypass and traditional AVR or high-risk PCI followed by TAVR. The latter of which would be difficult and likely require balloon aortic valvuloplasty and subsequent Impella placement. Will review the case with the cardiothoracic surgeon in addition to the TAVR team, the family, and make our best educated decision. Heparin drip will be initiated and patient transferred to CVICU Medications and IVs Current Medications Aspirin (Aspirin Chew) 162 mg ONCE ONCE PO ; Start 05/30/17 at 12:30; Stop at 12:30; Status DC Sodium Chloride (NS Flush) 2 ml UNSCH PRN IVF FLUSH AFTER USING IV ACCESS; Start 05/30/17 at 12:30; Stop 05/30/17 at 15:39; Status DC Aspirin (Aspirin Chew) 81 mg ONCE ONCE CHEW Last administered on 05/30/17 12: 29; Start 05/30/17 at 12:30; Stop 05/30/17 at 12:31; Status DC Lisinopril (Prinivil) 10 mg ONCE ONCE PO ; Start 05/30/17 at 13:15; Stop at 13:16; Status Cancel Lisinopril (Prinivil) 10 mg ONCE ONCE PO Last administered on 05/30/17 13:21 ; Start 05/30/17 at 13:30; Stop 05/30/17 at 13:31; Status DC Sodium Chloride (NS Flush) 2 ml UNSCH PRN IV FLUSH FLUSH AFTER USING IV ACCESS ; Start 05/30/17 at 13:30 Sodium Chloride (NS Flush) 2 ml BID IV FLUSH Last administered on 06/01/17t 10: 11; Start 05/30/17 at 21:00 Nitroglycerin (Nitroglycerin 2% Oint) 1 inch Q6HR TOP ; Start 05/30/17 at 18:00 ; Stop 05/30/17 at 18:00; Status DC Acetaminophen (Tylenol) 500 mg Q4H PRN PO HEADACHE; Start 05/30/17 at 15:45 Morphine Sulfate (Morphine Inj) 2 mg Q4H PRN IV PUSH PAIN SCALE 8 TO 10; Start 05/30/17 at 15:45 Ondansetron HCl (Zofran Inj) 4 mg Q6H PRN IV PUSH NAUSEA; Start 05/30/17 at 15: 45 Famotidine (Pepcid) 20 mg BID PO Last administered on 05/30/17 20:24; Start at 21:00; Stop 05/31/17 at 09:50; Status DC Nitroglycerin (Nitrostat Sl) 0.4 mg Q5M PRN SL CHEST PAIN; Start 05/30/17 at 15 :45 Aspirin (Aspirin) 325 mg DAILY PO Last administered on 06/01/17 10:10; Start 05/31/17 at 09:00 Levothyroxine Sodium (Synthroid) 75 mcg DAILY@0600 PO Last administered on 06/01 04:54; Start 05/31/17 at 06:00 Enoxaparin Sodium (Lovenox Inj) 40 mg Q24H SQ ; Start 05/30/17 at 17:00; Status Cancel Enalaprilat (Vasotec Inj) 1.25 mg Q6H PRN IV PUSH SBP>160, DBP>90; Start at 17:00 Regadenoson (Lexiscan Inj) 0.4 mg STK-MED ONCE IV Last administered on 09:24; Start 05/31/17 at 13:29; Stop 05/31/17 at 13:30; Status DC Famotidine (Pepcid) 10 mg BID PO Last administered on 06/01/17 10:11; Start at 21:00 Heparin Sodium/ Sodium Chloride 1,000 ml @ As Directed STK-MED ONCE .ROUTE Last administered on 06/01/17 11:27; Start 06/01/17 at 11:27; Stop 06/01/17 at 11:28; Status DC Midazolam HCl (Versed Inj) 2 mg STK-MED ONCE .ROUTE Last administered on 11:48; Start 06/01/17 at 11:28; Stop 06/01/17 at 11:29; Status DC Fentanyl Citrate (fentaNYL INJ) 100 mcg STK-MED ONCE .ROUTE Last administered on 06/01/17 11:42; Start 06/01/17 at 11:28; Stop 06/01/17 at 11:29; Status DC Heparin Sodium/ Dextrose 250 ml @ As Directed STK-MED ONCE .ROUTE ; Start 06/01 at 12:16; Stop 06/01/17 at 12:17; Status DC Heparin Sodium (Porcine) (Heparin Inj) 10,000 units STK-MED ONCE .ROUTE Last administered on 06/01/17t 12:33; Start 06/01/17 at 12:23; Stop 06/01/17 at 12:24 ; Status DC Sodium Chloride 1,000 ml @ 100 mls/hr Q10H IV ; Start 06/01/17 at 12:37; Stop 06/01/17 at 18:36 Lorazepam (Ativan Inj) 0.5 mg UNSCH PRN IV PUSH ANXIETY; Start 06/01/17 at 12: 45; Stop 06/02/17 at 12:44 Lidocaine HCl (Xylocaine 1% Inj (50 ml)) 10 ml UNSCH PRN INFIL SHEATH REMOVAL; Start 06/01/17 at 12:45; Stop 06/02/17 at 12:44 Bacitracin (Bacitracin Oint Packet) 0.9 gm ONCE ONCE TOP ; Start 06/01/17 at 12 :45; Stop 06/01/17 at 13:12; Status DC Heparin Sodium/ Dextrose 250 ml @ 7 mls/hr TITRATE PRN IV Coagulation management Last administered on 06/01/17t 12:35; Start 06/01/17 at 12:45 Iohexol (OMNIPAQUE 350 INJ (Inventory Management Specialist)) 100 ml STK-MED ONCE OTHER ; Start at 13:29; Stop 06/01/17 at 13:28; Status DC Melatonin (Melatonin) 5 mg HS PRN PO insomnia; Start 06/01/17 at 14:45 Alprazolam (Xanax) 0.25 mg Q8H PRN PO anxiety; Start 06/01/17 at 14:45 Sodium Chloride (NS Flush) 2 ml BID IV FLUSH ; Start 06/01/17 at 21:00; Stop at 21:00; Status DC Sodium Chloride (NS Flush) 2 ml UNSCH PRN IV FLUSH FLUSH AFTER USING IV ACCESS ; Start 06/01/17 at 14:45; Stop 06/01/17 at 14:45; Status DC Papaverine HCl 60 mg/Nitroglycerin 100 mcg/Diltiazem HCl 100 mg/Sodium Chloride 100 ml @ 0 mls/hr PILLOWCASE TURNER IRRIGATION ; Start 06/01/17 at 14:45; Stop 06/08/17 at 14:44 Cefazolin Sodium 500 mg/Sodium Chloride 505 ml @ 0 mls/hr PILLOWCASE TURNER IRRIGATION ; Start 06/01/17 at 14:45; Stop 06/08/17 at 14:44 Cefazolin Sodium/ Dextrose 50 ml @ 150 mls/hr PILLOWCASE TURNER IV ; Start 06/01/17 at 14:45; Stop 06/08/17 at 14:44 Metoprolol Tartrate (Lopressor) 12.5 mg PILLOWCASE TURNER PO ; Start 06/01/17 at 14:45; Stop 06/08/17 at 14:44 Chlorhexidine Gluconate (Hibiclens 4% Top Soln) 1 applic PILLOWCASE TURNER TOPICAL ; Start 06/01/17 at 14:45; Stop 06/08/17 at 14:44 Insulin Human Regular 100 units/ Sodium Chloride 101 ml @ 0 mls/hr PILLOWCASE TURNER IV ; Start 06/01/17 at 14:45; Stop 06/08/17 at 14:44 A/P Problem List: (1) Chest pressure ICD Code: R07.89 - Other chest pain Plan: Atypical and associated with dyspnea on exertion, likely due to moderate to severe aortic valve stenosis seen on echo. Patient will benefit from further cardiac and cardiac surgical evaluation ( likely cath). Continue with current medical management of her blood pressure. Patient agreeable for second opinion with on-call puttier. Case discussed with Dr. mireles and Dr. Moon (2) Hypertensive urgency ICD Code: I16.0 - Hypertensive urgency (3) Indigestion ICD Code: K30 - Functional dyspepsia (4) Dyspnea on exertion ICD Code: R06.09 - Other forms of dyspnea Assessment and Plan This is a 86-year-old female. Date of admission 05/30/2017. . Past medical history includes hypertension, dyslipidemia, hypothyroidism and carotid vascular disease with osteoarthritis and melanoma. She originally presented to [facility] [place] with chest pain and epigastric pain. SHe originally described this as indigestion and she taken Gas-X and Maalox with some moderate improvement. Symptoms seem more cardiac as with his exertion with bilateral arm pain. Patient nuclear medicine stress tested revealed no definite reversibility to suggest ischemia, Mild hypokinesis with ejection fraction 47%. Echocardiogram 05/30 showed moderate to severe aortic stenosis with ejection fraction of 55-60%. Bilateral atrial enlargement. Grade 1 diastolic dysfunction. Aortic valve 0.68 cm. Today, patient had a cardiac catheterization.. Ejection fraction 55% Right Atrium 7 mmHg. RVP 30/5 mmHg, PEEP 30/10 mmHg. Pulmonary capillary Wedge pressure 13 mmHg. Cardiac output 5.3 L per minute. Cardiac index 3 L per m/m . Left main 95%. LAD 20%. Diagonal 20%. Circumflex 80%. OM 90%. RCA 95%. Large infrarenal AAA. Intra-abdominal balloon pump placed one-to-one. Currently denying chest pain and shortness of breath. Patient to undergo imaging of carotid arteries and CT thorax. Dr. Juan Mireles will decide plan of care at that time Assessment and plan Insomnia Acetaminophen 500 mg every 4 hours when necessary fever or pain Alprazolam 0.25 mg every 8 hours when necessary anxiety Melatonin 5 mg at night when necessary insomnia CV: Severe aortic stenosis valve area 0.68 cm Three-vessel coronary artery disease Dyslipidemia Carotid artery disease Infrarenal AAA Grade 1 diastolic dysfunction/chronic Status post cardiac catheterization. Ejection fraction 55%. Grade 1 diastolic dysfunction. Left main 95% stenosis. LAD 20% stenosis. Diagonal 20% stenosis. ON 99% stenosis Circumflex 80% stenosis. RCA 95% stenosis. Currently with IABP at 1-1 Currently on aspirin 325 mg by mouth daily Dr. Martinez to evaluate. Will get carotid ultrasound, CT chest and reevaluate Lipid panel will be ordered. Previous rosuvastatin 5 mg by mouth daily Resp: History of tobaccoism Nasal cannula to maintain saturations greater than or equal to 92% Incentive spirometry while awake GI: Patient is currently nothing by mouth status post cardiac catheterization Famotidine for GI prophylaxis Docusate sodium/senna 1 tablet twice a day for bowel regimen : Bowers catheter for accurate I's and O's in a critically ill patient with an intra-aortic pump Endo: Hypothyroidism Continue levothyroxine 75 mics grams by mouth daily. Recheck TSH in a.m. Renal: Monitor urine output Accurate I's and O's Creatinine currently within normal limits Heme: Normocytic anemia History melanoma Monitor CBC daily. Follow trends. Currently on heparin drip ID: Monitor for infection MSK: Osteoporosis Physical therapy evaluate and treat. FEN: Replace electrolytes as clinically indicated Access - Utilize peripheral IV. Central line if indicated - Right femoral IABP placed 06/01 Prophylaxis - GI - Matt Moseley DO Jun 01, 2017 17:28
--- NOTE | 2017-06-01 17:29 | RADRPT ---
EXAM DATE/TIME: 06/01/2017 15:57 [facility] COMPARISON: No previous studies available for comparison. EXTERNAL COMPARISON : [facility], US CAROTID ARTERIES, May 17, 2012[facility], [facility] CAROTID ARTERIES, May 17, 2012. INDICATIONS : PreOp cardiac surgery. MEDICAL HISTORY : Hypercholesterolemia. Arthritis. Thyroid disease. Hearing loss. Aortic mitral valve disease. Hyperl ipidemia. Dyspnea. Diverticulitis. Abdominal pain. Nausea. SURGICAL HISTORY : Tonsillectomy. Abdominal aortic aneurysm repair. section. ENCOUNTER: Initial ACUITY: 1 day PAIN SCORE: 2/10 LOCATION: Bilateral neck PEAK SYSTOLIC VELOCITIES (cm/sec): ICA/CCA RATIO: Right: 4.3 Left: 2.6 ICA: Right: 173 Left: 149 CCA: Right: 41 Left: 57 ECA: Right: 79 Left: 159 VERTEBRAL: Right: 71 antegrade Left: 61 antegrade Elevated flow velocities and ICA/CCA ratios have been found to correlate with increased degrees of vessel stenosis, calculated as percentage of diameter relative to a normal segment of distal ICA/CCA FINDINGS: RIGHT CAROTID: Moderate amount of calcified plaque throughout the right carotid system including the bulb and proxim al internal. The waveforms are within normal limits. LEFT CAROTID: Severe calcified plaque in the left carotid system. The waveforms are within normal limits. VERTEBRAL ARTERIES: Antegrade flow is seen in both vertebral arteries. MISCELLANEOUS: None. CONCLUSION: 1. Moderate calcified plaque in the right carotid system with severe calcified plaque in the left car otid bulb. 2. Doppler evaluation suggests a greater than 70% stenosis in the right internal carotid artery with a 50-69% stenosis on the left. CTA of the cervical vessels is recommended for further characterizatio n. Dante Wharton MD on June 01, 2017 at 17:24 Board Certified Radiologist. This report was verified electronically.
--- NOTE | 2017-06-01 18:03 | MB ---
cc: SPIKE ZAVALA MD DATE OF CONSULTATION 05/30/17 1928 HISTORY OF PRESENT ILLNESS An 86-year-old female of Dr. Deanne Wade, also Dr. Matt mireles who presented to the emergency room with indigestion complaint for the last couple weeks. Apparently, she was complaining of gas pains. She took Gas-X which reduced her abdominal fullness and allowed her to belch. She also took some ibuprofen for arthritis. She takes Zantac for heartburn dependent upon what she eats. She said she has been having chest pressure in the center of her chest, felt like something heavy sitting on her chest, could no catch her breath, lasted about 30 minutes. She was apparently seen in [place] and underwent stress test which showed a reduced EF. She also underwent echocardiogram which showed EF of 55-60%, some grade 1 diastolic dysfunction, mild to moderate mitral regurgitation, diffuse calcification of the aortic valve, the aortic valve area 0.65 cm squared. The valve mean gradient of 35 mmHg, trace tricuspid regurgitation. The patient then underwent cardiac cath today by Dr. Mireles which showed a 95% left main, proximal LAD 20%, mid distal LAD 20%, the diagonal 20%, the circ was 80%, OM 99%, the RCA 95%. Intra-aortic balloon pump was placed due to the left main disease. We were consulted to evaluate for aortic valve replacement and coronary artery bypass grafting x3. PAST MEDICAL HISTORY 1. Infrarenal abdominal aortic aneurysm that measured approximately 4.3 to 4 which is being followed as an outpatient. 2. Arthritis 3. Melanoma 4. History of mitral valve prolapse. 5. History of some carotid artery disease bilaterally. 6. Thyroid disease, PAST SURGICAL HISTORY 1. Bladder sling 2. Bilateral cataracts 3. x1 4. Dental implants 5. Tonsillectomy. ALLERGIES She has no known allergies MEDICATIONS Home meds include 1. Aspirin. 2. Levothyroxine 3. Crestor 4. Multivitamin. 5. Cod liver oil. FAMILY HISTORY No history of heart disease in her mother. She is unfamiliar with her father's history. SOCIAL HISTORY Lives alone, takes care herself, lives locally. She drinks a shot of whiskey daily. Quit smoking 20 years ago. Prior to that she smoked one-pack for 50 years. No illicit drugs. REVIEW OF SYSTEMS GENERAL: No night sweats, fever, heat and cold intolerance. SKIN: No psoriasis, itching or hives. HEENT: No blurred vision, hearing loss. RESPIRATORY: Positive for shortness of breath. CARDIOVASCULAR: As above. GASTROINTESTINAL: She had some recent belching, abdominal fullness GENITOURINARY: No burning, frequency, urgency PROPERTY TECHNICIAN: No history of TIA, CVA, seizure disorder. ENDOCRINOLOGY: Positive for hypothyroidism. PHYSICAL EXAMINATION VITAL SIGNS: Blood pressure 150/50, heart rate 76, temperature max 97.7. GENERAL: Patient is awake, alert, currently pain free. HEENT: Normocephalic, atraumatic. Pupils equal and reactive. Oral mucosa pink, moist. NECK: Supple. No JVD. CARDIAC: Heart sounds S1-S2. She has a grade 3/6 systolic murmur best noted on the right sternal border. LUNGS: Clear to auscultation. No wheezes, rales or rhonchi. ABDOMEN: Soft, nontender. No masses or organomegaly. She does have a right intra-aortic balloon pump that is on a one-to-one augmentation with +1 distal pulse in her foot. Good capillary refill. NEUROLOGIC: Neurologically she is alert and oriented times three LABORATORY FINDINGS Hemoglobin 10.9, hematocrit 34, white cell count 8.1, platelet count 263. Sodium 139, potassium 3.9, BUN of 14, creatinine 0.82, AST 17, ALT 18, troponin negative x3. TSH is 0.928, INR 1.0. Urinalysis is unremarkable. IMAGING STUDIES CT chest is pending. Carotid ultrasound pending. Vein mapping pending. CARDIOLOGY STUDIES EKG shows sinus rhythm, first degree AV block, otherwise, unremarkable. IMPRESSION This is an 86 year old female with comorbidities including age, history of hypothyroidism, abdominal aortic aneurysm that has been followed as an outpatient, last was greater than 4.0, mild bilateral carotid disease per the daughter, underwent cardiac cath since the patient was initially felt to be a possible candidate for transcatheter aortic valve replacement, however, with her significant coronary disease she is no longer a candidate. She has multivessel disease including the left main disease of 95%, circ of 80, OM 99%, RCA 95%, EF of 55. The cardiac films have been reviewed by Dr. Spike Zavala. At this time, we await the CT scan to evaluate the aorta to rule out porcelain aorta which would further increase her risk for any surgery. Her risk of mortality at this time is already 15.9%. The daughter is at the bedside. She is discussing this with her mother in regards to any possible surgery. If unable to do cardiac surgery, then the patient will be evaluated by Dr. Mireles for bridging of possible balloon aortic valvuloplasty, also left main stenting with possible Impella and staging. Dictated by MARK Espinosa Spike COUCH /3:35 PM /12:35 PM
--- NOTE | 2017-06-01 18:53 | RADRPT ---
EXAM DATE/TIME: 06/01/2017 17:20 [place] COMPARISON: No previous studies available for comparison. INDICATIONS : Evaluate for calcification in aorta. RADIATION DOSE: 8.03 CTDIvol (mGy) MEDICAL HISTORY : Cardiovascular disease. Carcinoma, not otherwise specified. SURGICAL HISTORY : None. ENCOUNTER: Initial ACUITY: 1 day PAIN SCALE: 0/10 LOCATION: Bilateral chest TECHNIQUE: Volumetric scanning of the chest was performed. Using automated exposure control and adjustment of t he mA and/or kV according to patient size, radiation dose was kept as low as reasonably achievable to obtain optimal diagnostic quality images. DICOM format image data is available electronically for r eview and comparison. Follow-up recommendations for detected pulmonary nodules are based at a minimum on nodule size and pa tient risk factors according to Fleischner Society Guidelines. FINDINGS: There appears to an intra-aortic balloon pump within the descending thoracic aorta. There is calcifi cation involving the aortic valve. Coronary artery calcifications are noted. There is aneurysmal di latation of the abdominal aorta which is incompletely evaluated on this examination. The portion of the abdominal aortic aneurysm which is visualized measures at least 4.7 cm in dimension. Biapical ca lcified pleural plaques are noted. No pulmonary nodule or mass is noted. No alveolar consolidation is noted. No pulmonary edema is noted. No pleural effusion is noted. Degenerative changes and mult ilevel compression deformities are noted within the thoracic spine. Uncomplicated colon diverticulos is is noted. CONCLUSION: 1. Calcification involving the aortic valve and coronary arteries. 2. Metallic foreign body with air noted throughout the descending thoracic aorta suggestive of intra aortic balloon pump. 3. Aneurysmal dilatation of the abdominal aorta which is incompletely evaluated but measures at leas t 4.7 cm in size. 4. Biapical calcific pleural plaques. 5. Degenerative changes and multilevel compression deformities involving the thoracic spine. 6. Uncomplicated colon diverticulosis. Noe Hurt MD on June 01, 2017 at 18:33 Board Certified Radiologist. This report was verified electronically.
[2017-06-01 20:40] LABS: APTT (PATIENT) 35.5 SEC (24.3-30.1)
[2017-06-01 20:54] LABS: HEMOGLOBIN A1a 3.1 %
[2017-06-01] MEDS ORDERED: SODIUM CHLORIDE 0.9% FLUSH 10 ML FLUSH IV FLUSH SCH (21:00)
[2017-06-01] MEDS: MELATONIN 5 MG TAB PO PRN (23:12)
[2017-06-02] VITALS (10 sets, daily range): BP systolic 99–144; BP diastolic 36–91; PULSE 69–90; RESP 16–18; TEMP 97.8–98.4; O2SAT 92–98
[2017-06-02 05:21] LABS: HEMATOCRIT 32.3 % (35.0-46.0); MEAN CELL VOLUME 95.4 FL (80.0-100.0); MEAN CORPUSCULAR HGB CONC 32.5 % (32.0-36.0); PLATELET COUNT 245 TH/MM3 (150-450); RED BLOOD COUNT 3.39 MIL/MM3 (4.00-5.30); RED CELL DISTRIBUTION WIDTH 14.8 % (11.6-17.2); REVIEW FLAG FINAL; WHITE BLOOD COUNT 9.8 TH/MM3 (4.0-11.0)
[2017-06-02 05:31] LABS: APTT (PATIENT) 46.7 SEC (24.3-30.1)
[2017-06-02 05:43] LABS: BICARBONATE 24.6 MEQ/L (21.0-32.0); POTASSIUM 3.8 MEQ/L (3.5-5.1)
[2017-06-02] MEDS: LEVOTHYROXINE SODIUM 75 MCG TAB PO SCH (06:12)
[2017-06-02] MEDS: ASPIRIN 325 MG TAB PO SCH (08:55)
[2017-06-02] MEDS: FAMOTIDINE 20 MG TAB PO SCH ×2 (08:55→21:54)
[2017-06-02] MEDS: SODIUM CHLORIDE 0.9% FLUSH 10 ML FLUSH IV FLUSH SCH ×2 (08:55→21:56)
--- NOTE | 2017-06-02 09:03 | HHI.CCPN ---
Subjective Remarks/Hospital Course This is a 86-year-old female. Date of admission 05/30/2017. Date of consultation 06/01/2017. Past medical history includes hypertension, dyslipidemia, hypothyroidism and carotid vascular disease with osteoarthritis and melanoma. She originally presented to [facility] with chest pain and epigastric pain. He originally described this as indigestion and she taken Gas- X and Maalox with some moderate improvement. Symptoms seem more cardiac as with his exertion with bilateral arm pain. Patient nuclear medicine stress tested revealed no definite reversibility to suggest ischemia, Mild hypokinesis with ejection fraction 47%. Echocardiogram 05/30 showed moderate to severe aortic stenosis with ejection fraction of 55-60%. Bilateral atrial enlargement. Grade 1 diastolic dysfunction. Aortic valve 0.68 cm. Today, patient with cardiac catheterization.. Ejection fraction 55% Right Atrium 7 mmHg. RVP 30/5 mmHg, PEEP 30/10 mmHg. Pulmonary capillary Wedge pressure 13 mmHg. Cardiac output 5.3 L per minute. Cardiac index 3 L per m/m . Left main 95%. LAD 20%. Diagonal 20%. Circumflex 80%. OM 90%. RCA 95%. Large infrarenal AAA. Intra-abdominal pump placed one-to-one. We are asked to evaluate the patient post procedure. Currently denying chest pain and shortness of breath. Patient undergone imaging of carotid arteries and CT thorax. Dr. Juan Hunt will decide plan of care at that time Subjective 06/02: Received 2 mg morphine overnight for back pain. Very hard of hearing. Currently denies chest pain or shortness of breath. Hemodynamically stable. Objective Vital Signs Date Time Temp Pulse Resp B/P (MAP) Pulse Ox O2 Delivery O2 Flow Rate FiO2 06/02/17 08:00 121/32 (99) 06/02/17 07:00 69 06/02/17 07:00 98.0 18 97 06/01/17 21:39 Nasal Cannula 2.00 05/31/17 20:42 21 Intake and Output 06/02/17 06/02/17 06/03/17 08:00 16:00 00:00 Intake Total 246 ml Output Total 820 ml Balance -574 ml Result Diagram: 06/02/17 0349 06/02/17 0349 Imaging Last Impressions Lower Extremity Ultrasound 06/01/17 0000 Signed Impressions: Service Date/Time: Thursday, June 01, 2017 15:27 - CONCLUSION: 1. Superficial venous mapping as above. 2. Below the knee, the mid and peripheral portions of the right greater saphenous vein are not visualized. Dante Wharton MD Chest CT 06/01/17 0000 Signed Impressions: Service Date/Time: Thursday, June 01, 2017 17:20 - CONCLUSION: 1. Calcification involving the aortic valve and coronary arteries. 2. Metallic foreign body with air noted throughout the descending thoracic aorta suggestive of intraaortic balloon pump. 3. Aneurysmal dilatation of the abdominal aorta which is incompletely evaluated but measures at least 4.7 cm in size. 4. Biapical calcific pleural plaques. 5. Degenerative changes and multilevel compression deformities involving the thoracic spine. 6. Uncomplicated colon diverticulosis. Noe Hurt MD Carotid Artery Ultrasound 06/01/17 0000 Signed Impressions: Service Date/Time: Thursday, June 01, 2017 15:57 - CONCLUSION: 1. Moderate calcified plaque in the right carotid system with severe calcified plaque in the left carotid bulb. 2. Doppler evaluation suggests a greater than 70%% stenosis in the right internal carotid artery with a 50-69%% stenosis on the left. CTA of the cervical vessels is recommended for further characterization. Dante Wharton MD Myocardial Perfusion Scan Nuc Med 05/31/17 0600 Signed Impressions: Service Date/Time: May 08:36 - CONCLUSION: 1. No definite reversibility to suggest ischemia. 2. Mild hypokinesis with ejection fraction 47%%. RISK CATEGORY: Intermediate (1-3%% Annual Mortality Rate) Alan Rodriguez MD Chest X-Ray 05/30/17 1218 Signed Impressions: Service Date/Time: Tuesday, May 30, 2017 12:28 - CONCLUSION: No acute disease. Matt Mobley MD FACR Objective Remarks GENERAL: 86-year-old female, appears stated age currently resting in bed in no acute distress SKIN: Warm and dry. Well perfused. HEAD: Atraumatic. Normocephalic. EYES: Pupils equal and round about 3 mm bilaterally and reactive. No scleral icterus. No injection or drainage. ENT: No nasal bleeding or discharge. Mucous membranes pink and moist. Oropharynx without erythema NECK: Trachea midline. No JVD. CARDIOVASCULAR: Regular rate and rhythm. S1, S2. No S4.3. Pansystolic murmur 3 out of 6. Appreciate counterpulsation injury balloon pump RESPIRATORY: No accessory muscle use. Clear to auscultation. Breath sounds equal bilaterally. GASTROINTESTINAL: Abdomen soft, non-tender, nondistended. Hepatic and splenic margins not palpable. MUSCULOSKELETAL: Extremities without significant peripheral edema. Right groin is clean dry and intact. Dopplerable dorsalis pedis/posterior tibialis bilaterally NEUROLOGICAL: Awake and alert. No obvious cranial nerve deficits. Motor grossly within normal limits. Five out of 5 muscle strength in the arms and legs. Normal speech. PSYCHIATRIC: Appropriate mood and affect; insight and judgment normal. Procedures MINOR,MARY DATE: 06/01/2017 PROCEDURE PERFORMED 1. Fluoroscopy with interpretation. 2. Coronary angiography. 3. Right heart catheterization. 4. Aortography. 5. Intra-aortic balloon pump placement. METHOD The risks, benefits and alternatives were discussed with the patient. The patient understood and consented to the procedure. The patient was brought into the catheterization lab and placed on the catheterization table. The right groin was prepped and draped in a sterile fashion. The right common femoral artery was cannulated. A 6 English, 11 cm sheath was placed without difficulty. The right femoral vein was accessed and a 7 English, 11 cm sheath was placed without difficulty. RIGHT HEART CATHETERIZATION A 7 English [place]-Jacy pulmonary arterial catheter is advanced through the right femoral venous sheath to the level of the right atrium under fluoroscopic guidance. Hemodynamics are as follows: 1. Right atrium 7 mmHg. 2. Right ventricular pressure measured at 30/5 mmHg. 3. Pulmonary arterial pressure measured at 30/10 mmHg. 4. Pulmonary capillary wedge pressure 13 mmHg. 5. Cardiac output 5.3 liters per minute. 6. Cardiac index 3.2 liters per minute per meter squared. CORONARY ANGIOGRAPHY The left coronary circulation is selectively engaged with a 6 English JL4 catheter. The right coronary circulation is selectively engaged with a 6 English JR4 catheter. Angiography findings are as follows: 1. The left main ostia has 95%, heavily calcified. There is dampening and ventricularization of the waveform upon engagement. 2. The left anterior descending coronary artery is also moderately calcified but has only minor luminal irregularities. There are two moderate size diagonal branch branches that have mild luminal irregularities. 3. The left circumflex is small caliber size, 80% calcific ostial stenosis. There is a first obtuse marginal branch and sub-branches which is a less than 2 mm caliber size vessel that is 95% subtotally occluded. The remainder of the circumflex is very small. 4. The right coronary is a dominant vessel giving rise to a posterior descending and posterolateral branch. The mid right coronary is 95% subtotally occluded with a tandem 90% stenosis. The remainder of the vessel has mild luminal irregularities. DESCENDING AORTOGRAPHY A 6 English straight pigtail was advanced to the arch of the aorta. Aortography was performed in the left anterior oblique view. Subclavian origin originates on the ascending arch and is patent. The aortic arch and thoracic aorta is mildly dilated but heavily calcified in addition to the ascending aorta which is heavily calcified. The renal arteries appear to be patent, not well-visualized. There is a moderate to large size infrarenal aortic aneurysm with heavy calcium present. 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 The remainder of the iliac arteries on both sides are not well-visualized. INTRA-AORTIC BALLOON PUMP PLACEMENT Given the severity of stenosis in addition to the patient's intermittent resting symptoms in the setting of severe aortic stenosis, we elected to proceed with placement of an intra-aortic balloon pump. We attempted to keep the balloon pump above the renal arteries which would not impact the majority of the aneurysm down below. We are safely able to navigate a 34 cc balloon pump just beyond the takeoff of the left subclavian artery at one-to-one inflation. Appropriate augmentation noted. CONCLUSIONS 1. Severe left main and three vessel [place] coronary disease. 2. Severe aortic stenosis. 3. Normal cardiac output and index. 4. Normal left and right side filling pressures and pulmonary pressures. 5. Moderate to large infrarenal aortic aneurysm. 6. Successful intra-aortic balloon pump placement. PLAN This is a very complex case. I have asked Dr. Martinez, cardiothoracic surgeon, for his input. He was available to review the films immediately with full consultation to follow. 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 We will have to decide ultimately how to handle her case, whether it be a combination of coronary bypass and traditional AVR or high-risk PCI followed by TAVR. The latter of which would be difficult and likely require balloon aortic valvuloplasty and subsequent Impella placement. Will review the case with the cardiothoracic surgeon in addition to the TAVR team, the family, and make our best educated decision. Heparin drip will be initiated and patient transferred to CVICU A/P Assessment and Plan Neuro/Psych: Insomnia Acetaminophen 500 mg every 4 hours when necessary fever or pain Alprazolam 0.25 mg every 8 hours when necessary anxiety Melatonin 5 mg at night when necessary insomnia Morphine sulfate 2 mg IV every 4 hours. Pain CV: Severe aortic stenosis valve area 0.68 cm Three-vessel coronary artery disease Dyslipidemia Carotid artery disease Infrarenal AAA Grade 1 diastolic dysfunction/chronic Status post cardiac catheterization. Ejection fraction 55%. Grade 1 diastolic dysfunction. Left main 95% stenosis. LAD 20% stenosis. Diagonal 20% stenosis. ON 99% stenosis Circumflex 80% stenosis. RCA 95% stenosis. Currently with IABP at 1-1 Currently on aspirin 81 mg by mouth daily and on a heparin drip at [address] Martinez to evaluate. Will get carotid ultrasound, CT chest and reevaluate Lipid panel will be ordered. Previous rosuvastatin 5 mg by mouth daily Right ICA greater than 70%. Left ICAs 5690% stenosis. 4.7 cm AAA. Resp: History of tobaccoism Nasal cannula to maintain saturations greater than or equal to 92% Incentive spirometry while awake GI: Colonic diverticulosis Patient is currently in a heart healthy diet Famotidine for GI prophylaxis Docusate sodium/senna 1 tablet twice a day for bowel regimen : Bowers catheter for accurate I's and O's in a critically ill patient with an intra-aortic pump Endo: Hypothyroidism Continue levothyroxine 75 mics grams by mouth daily. Recheck TSH in a.m. Renal: Monitor urine output Accurate I's and O's Creatinine currently within normal limits Heme: Normocytic anemia History melanoma Monitor CBC daily. Follow trends. Currently on heparin drip ID: Monitor for infection MSK: Osteoporosis Physical therapy evaluate and treat. FEN: Replace electrolytes as clinically indicated Access - Utilize peripheral IV. Central line if indicated - Right femoral IABP placed 06/01 Prophylaxis - GI - famotidine - DVT -heparin drip Level II follow-up Harish Jesus MD Jun 02, 2017 09:03
[2017-06-02] MEDS ORDERED: SENNOSIDES 8.6 MG TAB PO PRN (09:15)
[2017-06-02] MEDS ORDERED: oxyCODONE/ACETAMINOPHEN 5 MG/325 MG TAB PO PRN (09:15)
[2017-06-02] MEDS ORDERED: NALOXONE HCL 0.4 MG/ML AMP IV PUSH PRN (09:15)
[2017-06-02] MEDS ORDERED: SODIUM CHLORIDE 0.9% FLUSH 10 ML FLUSH IV FLUSH PRN (09:15)
[2017-06-02] MEDS ORDERED: PROCHLORPERAZINE 25 MG SUPP RECTAL PRN (09:15)
[2017-06-02] MEDS ORDERED: LACTULOSE SYRUP 20 GM/30 ML CUP PO PRN (09:15)
[2017-06-02] MEDS ORDERED: MAGNESIUM HYDROXIDE SUSP 30 ML CUP PO PRN (09:15)
[2017-06-02] MEDS ORDERED: BISACODYL 10 MG SUPP RECTAL PRN (09:15)
[2017-06-02] MEDS ORDERED: ONDANSETRON HCL 4 MG/2 ML VIAL IVP PRN (09:15)
[2017-06-02] MEDS ORDERED: MORPHINE SULFATE 4 MG/ML INJ IV PUSH PRN ×3 (09:15)
[2017-06-02] MEDS ORDERED: oxyCODONE/ACETAMINOPHEN 10 MG/325 MG TAB PO PRN (09:15)
[2017-06-02] MEDS ORDERED: ACETAMINOPHEN 325 MG TAB PO PRN ×2 (09:15)
--- NOTE | 2017-06-02 09:15 | HHI.PR ---
Subjective Remarks Patient was transferred from [facility] to the main [facility]. Underwent cardiac catheterization today with Dr. mireles results are available in his report Patient is now in the cardiovascular ICU with a balloon pump in place being evaluated by cardiovascular surgery for interventions Patient is scheduled to undergo CAT scans of the chest and abdomen Have discussed with patient and family We'll continue to monitor here in the ICU along with critical care and cardiovascular surgery as well as cardiology 06-02 REMAINS ON IABP AWAIT DECISION OF [facility] REGARDING WHAT THEY WILL OR WILL NOT OFFER DW RN AND PT AND FAMILY WANTS PAIN MEDS ORAL MEDS WRITTEN FOR HAD MORPHINE FOR BACK PAIN WILL MAKE ORALS AVAILABLE NO SOB, NO CHEST PAIN AT THIS TIME Objective Vitals Vital Signs Date Time Temp Pulse Resp B/P (MAP) Pulse Ox O2 Delivery O2 Flow Rate FiO2 06/02/17 08:00 121/32 (99) 06/02/17 07:00 97/28 (84) 06/02/17 07:00 69 06/02/17 07:00 98.0 69 18 142/91 (108) 97 06/02/17 06:11 104/27 (87) 06/02/17 05:07 115/42 (103) 06/02/17 04:09 90/30 (83) 06/02/17 03:24 82 06/02/17 03:19 97.9 90 18 144/87 (106) 98 124/44 (70) 06/02/17 03:00 124/44 (107) 06/02/17 02:00 85/29 (80) 06/02/17 01:00 92/30 (87) 06/02/17 00:00 110/33 (93) 06/01/17 23:15 142/48 (119) 06/01/17 23:15 98.3 98 22 144/86 (105) 93 142/48 (79) 06/01/17 23:00 97 06/01/17 22:00 141/45 (109) 06/01/17 21:39 95 Nasal Cannula 2.00 06/01/17 21:00 142/42 (119) 06/01/17 20:00 131/37 (109) 06/01/17 19:45 98.3 83 16 163/56 (91) 97 139/60 (86) 06/01/17 19:00 139/60 (94) 06/01/17 19:00 83 06/01/17 18:00 118/41 (105) 06/01/17 17:00 152/55 (126) 06/01/17 16:00 92/26 (93) 06/01/17 16:00 98.1 93 16 161/65 (97) 94 06/01/17 16:00 93 06/01/17 16:00 93 06/01/17 15:00 139/34 (104) 06/01/17 14:00 170/55 (136) 06/01/17 13:00 77 06/01/17 13:00 158/41 (123) 06/01/17 13:00 77 06/01/17 13:00 97.7 77 16 153/69 (97) 98 06/01/17 10:00 76 I/O 06/01/17 06/01/17 06/01/17 06/02/17 06/02/17 06/02/17 07:00 15:00 23:00 07:00 15:00 23:00 Intake Total 480 ml 563.1 ml 246 ml Output Total 550 ml 820 ml Balance 480 ml 13.1 ml -574 ml Intake Oral 480 ml 530 ml 150 ml IV Total 33.1 ml 96 ml Output Urine Total 550 ml 820 ml # Voids 4 # Bowel Movements 0 0 Result Diagram: 06/02/17 0349 06/02/17 0349 Other Results Laboratory Tests Test 05/30/17 12:20 05/30/17 12:40 05/30/17 15:45 05/30/17 18:45 White Blood Count 8.8 TH/MM3 Red Blood Count 3.72 MIL/MM3 Hemoglobin 11.6 GM/DL Hematocrit 35.2 % Mean Corpuscular Volume 94.6 FL Mean Corpuscular Hemoglobin 31.1 PG Mean Corpuscular Hemoglobin Concent 32.9 % Red Cell Distribution Width 14.8 % Platelet Count 277 TH/MM3 Mean Platelet Volume 8.1 FL Neutrophils (%) (Auto) 60.8 % Lymphocytes (%) (Auto) 24.8 % Monocytes (%) (Auto) 11.2 % Eosinophils (%) (Auto) 2.6 % Basophils (%) (Auto) 0.6 % Neutrophils # (Auto) 5.2 TH/MM3 Lymphocytes # (Auto) 2.2 TH/MM3 Monocytes # (Auto) 1.0 TH/MM3 Eosinophils # (Auto) 0.2 TH/MM3 Basophils # (Auto) 0.1 TH/MM3 CBC Comment DIFF FINAL Differential Comment Prothrombin Time 10.4 SEC Prothromb Time International Ratio 0.9 RATIO Activated Partial Thromboplast Time 27.5 SEC Blood Urea Nitrogen 14 MG/DL Creatinine 0.82 MG/DL Random Glucose 95 MG/DL Total Protein 7.6 GM/DL Albumin 3.8 GM/DL Calcium Level 9.5 MG/DL Magnesium Level 2.0 MG/DL Alkaline Phosphatase 77 U/L Aspartate Amino Transf (AST/SGOT) 17 U/L Alanine Aminotransferase (ALT/SGPT) 18 U/L Total Bilirubin 0.3 MG/DL Sodium Level 139 MEQ/L Potassium Level 3.9 MEQ/L Chloride Level 104 MEQ/L Carbon Dioxide Level 28.4 MEQ/L Anion Gap 7 MEQ/L Estimat Glomerular Filtration Rate 66 ML/MIN Total Creatine Kinase 73 U/L 75 U/L 70 U/L Troponin I LESS THAN 0.02 NG/ML LESS THAN 0.02 NG/ML LESS THAN 0.02 NG/ML Lipase 315 U/L Thyroid Stimulating Hormone 3rd Gen 0.928 uIU/ML Urine Collection Type CLEAN CATCH Urine Color YELLOW Urine Turbidity CLEAR Urine pH 6.5 Urine Specific [place] 1.020 Urine Protein NEG mg/dL Urine Glucose (UA) NEG mg/dL Urine Ketones NEG mg/dL Urine Occult Blood TRACE Urine Nitrite NEG Urine Bilirubin NEG Urine Leukocyte Esterase NEG Urine RBC 0-3 /hpf Urine Squamous Epithelial Cells 0-5 /hpf Microscopic Urinalysis Comment CULT NOT INDICATED Urine Collection Time 12:40 Test 06/01/17 13:15 06/01/17 20:15 06/02/17 03:49 06/02/17 04:45 White Blood Count 8.1 TH/MM3 9.8 TH/MM3 Red Blood Count 3.57 MIL/MM3 3.39 MIL/MM3 Hemoglobin 10.9 GM/DL 10.5 GM/DL Hematocrit 34.1 % 32.3 % Mean Corpuscular Volume 95.3 FL 95.4 FL Mean Corpuscular Hemoglobin 30.5 PG 31.0 PG Mean Corpuscular Hemoglobin Concent 31.9 % 32.5 % Red Cell Distribution Width 15.0 % 14.8 % Platelet Count 263 TH/MM3 245 TH/MM3 Mean Platelet Volume 8.4 FL 8.5 FL Prothrombin Time 11.1 SEC Prothromb Time International Ratio 1.0 RATIO Activated Partial Thromboplast Time 57.1 SEC 35.5 SEC 46.7 SEC Hemoglobin A1c 5.5 % Blood Urea Nitrogen 13 MG/DL Creatinine 0.70 MG/DL Random Glucose 91 MG/DL Calcium Level 8.4 MG/DL Phosphorus Level 2.7 MG/DL Magnesium Level 2.0 MG/DL Sodium Level 139 MEQ/L Potassium Level 3.8 MEQ/L Chloride Level 108 MEQ/L Carbon Dioxide Level 24.6 MEQ/L Anion Gap 6 MEQ/L Estimat Glomerular Filtration Rate 79 ML/MIN Triglycerides Level 144 MG/DL Cholesterol Level 170 MG/DL LDL Cholesterol 86 MG/DL HDL Cholesterol 55.0 MG/DL Cholesterol/HDL Ratio 3.09 RATIO Thyroid Stimulating Hormone 3rd Gen 1.590 uIU/ML Imaging Last Impressions Lower Extremity Ultrasound 06/01/17 0000 Signed Impressions: Service Date/Time: Thursday, June 01, 2017 15:27 - CONCLUSION: 1. Superficial venous mapping as above. 2. Below the knee, the mid and peripheral portions of the right greater saphenous vein are not visualized. Dante Wharton MD Chest CT 06/01/17 0000 Signed Impressions: Service Date/Time: Thursday, June 01, 2017 17:20 - CONCLUSION: 1. Calcification involving the aortic valve and coronary arteries. 2. Metallic foreign body with air noted throughout the descending thoracic aorta suggestive of intraaortic balloon pump. 3. Aneurysmal dilatation of the abdominal aorta which is incompletely evaluated but measures at least 4.7 cm in size. 4. Biapical calcific pleural plaques. 5. Degenerative changes and multilevel compression deformities involving the thoracic spine. 6. Uncomplicated colon diverticulosis. Noe Hurt MD Carotid Artery Ultrasound 06/01/17 0000 Signed Impressions: Service Date/Time: Thursday, June 01, 2017 15:57 - CONCLUSION: 1. Moderate calcified plaque in the right carotid system with severe calcified plaque in the left carotid bulb. 2. Doppler evaluation suggests a greater than 70%% stenosis in the right internal carotid artery with a 50-69%% stenosis on the left. CTA of the cervical vessels is recommended for further characterization. Dante Wharton MD Myocardial Perfusion Scan Nuc Med 05/31/17 0600 Signed Impressions: Service Date/Time: May 08:36 - CONCLUSION: 1. No definite reversibility to suggest ischemia. 2. Mild hypokinesis with ejection fraction 47%%. RISK CATEGORY: Intermediate (1-3%% Annual Mortality Rate) Alan Rodriguez MD Chest X-Ray 05/30/17 1218 Signed Impressions: Service Date/Time: Tuesday, May 30, 2017 12:28 - CONCLUSION: No acute disease. Matt Mobley MD FACR Objective Remarks GENERAL: Awake alert and oriented talkative and cooperative appears to be in no acute distress at this time currently has balloon pump in place SKIN: Warm and dry. HEAD: Atraumatic. Normocephalic. EYES: Pupils equal and round. No scleral icterus. No injection or drainage. EOMI ENT: No nasal bleeding or discharge. Mucous membranes pink and moist. Tongue is midline NECK: Trachea midline. No JVD. Supple CARDIOVASCULAR: Regular rate and rhythm. S1-S2 no S3 or S4 cardiac augmentation noted on exam RESPIRATORY: No accessory muscle use. Clear to auscultation. Breath sounds equal bilaterally. GASTROINTESTINAL: Abdomen soft, non-tender, nondistended. Hepatic and splenic margins not palpable. MUSCULOSKELETAL: Extremities without clubbing, cyanosis, or edema. No obvious deformities. Balloon pump in place IN RIGHT GROIN NEUROLOGICAL: Awake and alert. No obvious cranial nerve deficits. Motor grossly within normal limits. 4 out of 5 muscle strength in the arms and legs. Normal speech. PSYCHIATRIC: Appropriate mood and affect; insight and judgment normal. Procedures MINOR,MARY DATE: 06/01/2017 PROCEDURE PERFORMED 1. Fluoroscopy with interpretation. 2. Coronary angiography. 3. Right heart catheterization. 4. Aortography. 5. Intra-aortic balloon pump placement. METHOD The risks, benefits and alternatives were discussed with the patient. The patient understood and consented to the procedure. The patient was brought into the catheterization lab and placed on the catheterization table. The right groin was prepped and draped in a sterile fashion. The right common femoral artery was cannulated. A 6 Gabonese, 11 cm sheath was placed without difficulty. The right femoral vein was accessed and a 7 Gabonese, 11 cm sheath was placed without difficulty. RIGHT HEART CATHETERIZATION A 7 Gabonese Bowden-Jacy pulmonary arterial catheter is advanced through the right femoral venous sheath to the level of the right atrium under fluoroscopic guidance. Hemodynamics are as follows: 1. Right atrium 7 mmHg. 2. Right ventricular pressure measured at 30/5 mmHg. 3. Pulmonary arterial pressure measured at 30/10 mmHg. 4. Pulmonary capillary wedge pressure 13 mmHg. 5. Cardiac output 5.3 liters per minute. 6. Cardiac index 3.2 liters per minute per meter squared. CORONARY ANGIOGRAPHY The left coronary circulation is selectively engaged with a 6 Gabonese JL4 catheter. The right coronary circulation is selectively engaged with a 6 Gabonese JR4 catheter. Angiography findings are as follows: 1. The left main ostia has 95%, heavily calcified. There is dampening and ventricularization of the waveform upon engagement. 2. The left anterior descending coronary artery is also moderately calcified but has only minor luminal irregularities. There are two moderate size diagonal branch branches that have mild luminal irregularities. 3. The left circumflex is small caliber size, 80% calcific ostial stenosis. There is a first obtuse marginal branch and sub-branches which is a less than 2 mm caliber size vessel that is 95% subtotally occluded. The remainder of the circumflex is very small. 4. The right coronary is a dominant vessel giving rise to a posterior descending and posterolateral branch. The mid right coronary is 95% subtotally occluded with a tandem 90% stenosis. The remainder of the vessel has mild luminal irregularities. DESCENDING AORTOGRAPHY A 6 Gabonese straight pigtail was advanced to the arch of the aorta. Aortography was performed in the left anterior oblique view. Subclavian origin originates on the ascending arch and is patent. The aortic arch and thoracic aorta is mildly dilated but heavily calcified in addition to the ascending aorta which is heavily calcified. The renal arteries appear to be patent, not well-visualized. There is a moderate to large size infrarenal aortic aneurysm with heavy calcium present. 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 The remainder of the iliac arteries on both sides are not well-visualized. INTRA-AORTIC BALLOON PUMP PLACEMENT Given the severity of stenosis in addition to the patient's intermittent resting symptoms in the setting of severe aortic stenosis, we elected to proceed with placement of an intra-aortic balloon pump. We attempted to keep the balloon pump above the renal arteries which would not impact the majority of the aneurysm down below. We are safely able to navigate a 34 cc balloon pump just beyond the takeoff of the left subclavian artery at one-to-one inflation. Appropriate augmentation noted. CONCLUSIONS 1. Severe left main and three vessel [place] coronary disease. 2. Severe aortic stenosis. 3. Normal cardiac output and index. 4. Normal left and right side filling pressures and pulmonary pressures. 5. Moderate to large infrarenal aortic aneurysm. 6. Successful intra-aortic balloon pump placement. PLAN This is a very complex case. I have asked Dr. Martinez, cardiothoracic surgeon, for his input. He was available to review the films immediately with full consultation to follow. 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 We will have to decide ultimately how to handle her case, whether it be a combination of coronary bypass and traditional AVR or high-risk PCI followed by TAVR. The latter of which would be difficult and likely require balloon aortic valvuloplasty and subsequent Impella placement. Will review the case with the cardiothoracic surgeon in addition to the TAVR team, the family, and make our best educated decision. Heparin drip will be initiated and patient transferred to CVICU Medications and IVs Current Medications Aspirin (Aspirin Chew) 162 mg ONCE ONCE PO ; Start 05/30/17 at 12:30; Stop at 12:30; Status DC Sodium Chloride (NS Flush) 2 ml UNSCH PRN IVF FLUSH AFTER USING IV ACCESS; Start 05/30/17 at 12:30; Stop 05/30/17 at 15:39; Status DC Aspirin (Aspirin Chew) 81 mg ONCE ONCE CHEW Last administered on 05/30/17t 12: 29; Start 05/30/17 at 12:30; Stop 05/30/17 at 12:31; Status DC Lisinopril (Prinivil) 10 mg ONCE ONCE PO ; Start 05/30/17 at 13:15; Stop at 13:16; Status Cancel Lisinopril (Prinivil) 10 mg ONCE ONCE PO Last administered on 05/30/17t 13:21 ; Start 05/30/17 at 13:30; Stop 05/30/17 at 13:31; Status DC Sodium Chloride (NS Flush) 2 ml UNSCH PRN IV FLUSH FLUSH AFTER USING IV ACCESS ; Start 05/30/17 at 13:30 Sodium Chloride (NS Flush) 2 ml BID IV FLUSH Last administered on 06/02/17 08: 55; Start 05/30/17 at 21:00 Nitroglycerin (Nitroglycerin 2% Oint) 1 inch Q6HR TOP ; Start 05/30/17 at 18:00 ; Stop 05/30/17 at 18:00; Status DC Acetaminophen (Tylenol) 500 mg Q4H PRN PO HEADACHE; Start 05/30/17 at 15:45 Morphine Sulfate (Morphine Inj) 2 mg Q4H PRN IV PUSH PAIN SCALE 8 TO 10 Last administered on 06/02/17 03:19; Start 05/30/17 at 15:45 Ondansetron HCl (Zofran Inj) 4 mg Q6H PRN IV PUSH NAUSEA; Start 05/30/17 at 15: 45 Famotidine (Pepcid) 20 mg BID PO Last administered on 05/30/17 20:24; Start at 21:00; Stop 05/31/17 at 09:50; Status DC Nitroglycerin (Nitrostat Sl) 0.4 mg Q5M PRN SL CHEST PAIN; Start 05/30/17 at 15 :45 Aspirin (Aspirin) 325 mg DAILY PO Last administered on 06/02/17 08:55; Start 05/31/17 at 09:00 Levothyroxine Sodium (Synthroid) 75 mcg DAILY@0600 PO Last administered on 06/02 06:12; Start 05/31/17 at 06:00 Enoxaparin Sodium (Lovenox Inj) 40 mg Q24H SQ ; Start 05/30/17 at 17:00; Status Cancel Enalaprilat (Vasotec Inj) 1.25 mg Q6H PRN IV PUSH SBP>160, DBP>90; Start at 17:00 Regadenoson (Lexiscan Inj) 0.4 mg STK-MED ONCE IV Last administered on 09:24; Start 05/31/17 at 13:29; Stop 05/31/17 at 13:30; Status DC Famotidine (Pepcid) 10 mg BID PO Last administered on 06/02/17 08:55; Start at 21:00 Heparin Sodium/ Sodium Chloride 1,000 ml @ As Directed STK-MED ONCE .ROUTE Last administered on 06/01/17 11:27; Start 06/01/17 at 11:27; Stop 06/01/17 at 11:28; Status DC Midazolam HCl (Versed Inj) 2 mg STK-MED ONCE .ROUTE Last administered on 11:48; Start 06/01/17 at 11:28; Stop 06/01/17 at 11:29; Status DC Fentanyl Citrate (fentaNYL INJ) 100 mcg STK-MED ONCE .ROUTE Last administered on 06/01/17 11:42; Start 06/01/17 at 11:28; Stop 06/01/17 at 11:29; Status DC Heparin Sodium/ Dextrose 250 ml @ As Directed STK-MED ONCE .ROUTE ; Start 06/01 at 12:16; Stop 06/01/17 at 12:17; Status DC Heparin Sodium (Porcine) (Heparin Inj) 10,000 units STK-MED ONCE .ROUTE Last administered on 06/01/17 12:33; Start 06/01/17 at 12:23; Stop 06/01/17 at 12:24 ; Status DC Sodium Chloride 1,000 ml @ 100 mls/hr Q10H IV ; Start 06/01/17 at 12:37; Stop 06/01/17 at 18:36; Status DC Lorazepam (Ativan Inj) 0.5 mg UNSCH PRN IV PUSH ANXIETY; Start 06/01/17 at 12: 45; Stop 06/02/17 at 12:44 Lidocaine HCl (Xylocaine 1% Inj (50 ml)) 10 ml UNSCH PRN INFIL SHEATH REMOVAL; Start 06/01/17 at 12:45; Stop 06/02/17 at 12:44 Bacitracin (Bacitracin Oint Packet) 0.9 gm ONCE ONCE TOP ; Start 06/01/17 at 12 :45; Stop 06/01/17 at 13:12; Status DC Heparin Sodium/ Dextrose 250 ml @ 7 mls/hr TITRATE PRN IV Coagulation management Last administered on 06/01/17 12:35; Start 06/01/17 at 12:45 Iohexol (OMNIPAQUE 350 INJ (Academic Guidance Specialist)) 100 ml STK-MED ONCE OTHER ; Start at 13:29; Stop 06/01/17 at 13:28; Status DC Melatonin (Melatonin) 5 mg HS PRN PO insomnia Last administered on 06/01/17t 23 :12; Start 06/01/17 at 14:45 Alprazolam (Xanax) 0.25 mg Q8H PRN PO anxiety; Start 06/01/17 at 14:45 Sodium Chloride (NS Flush) 2 ml BID IV FLUSH ; Start 06/01/17 at 21:00; Stop at 21:00; Status DC Sodium Chloride (NS Flush) 2 ml UNSCH PRN IV FLUSH FLUSH AFTER USING IV ACCESS ; Start 06/01/17 at 14:45; Stop 06/01/17 at 14:45; Status DC Papaverine HCl 60 mg/Nitroglycerin 100 mcg/Diltiazem HCl 100 mg/Sodium Chloride 100 ml @ 0 mls/hr [employer] IRRIGATION ; Start 06/01/17 at 14:45; Stop 06/08/17 at 14:44 Cefazolin Sodium 500 mg/Sodium Chloride 505 ml @ 0 mls/hr [employer]RIGATION ; Start 06/01/17 at 14:45; Stop 06/08/17 at 14:44 Cefazolin Sodium/ Dextrose 50 ml @ 150 mls/hr [employer] IV ; Start 06/01/17 at 14:45; Stop 06/08/17 at 14:44 Metoprolol Tartrate (Lopressor) 12.5 mg [employer] OFFICER PO ; Start 06/01/17 at 14:45; Stop 06/08/17 at 14:44 Chlorhexidine Gluconate (Hibiclens 4% Top Soln) 1 applic [employer] TOPICAL ; Start 06/01/17 at 14:45; Stop 06/08/17 at 14:44 Insulin Human Regular 100 units/ Sodium Chloride 101 ml @ 0 mls/hr [employer] OFFIC[employer] IV ; Start 06/01/17 at 14:45; Stop 06/08/17 at 14:44 Urinary Catheter: Yes Assessment to: Continue Marr insert reason: Measure Accurate Output Vascular Central Line Catheter: Yes A/P Problem List: (1) Chest pressure ICD Code: R07.89 - Other chest pain Plan: Atypical and associated with dyspnea on exertion, likely due to moderate to severe aortic valve stenosis seen on echo. (2) Hypertensive urgency ICD Code: I16.0 - Hypertensive urgency (3) Indigestion ICD Code: K30 - Functional dyspepsia (4) Dyspnea on exertion ICD Code: R06.09 - Other forms of dyspnea Assessment and Plan This is a 86-year-old female. Date of admission 05/30/2017. . Past medical history includes hypertension, dyslipidemia, hypothyroidism and carotid vascular disease with osteoarthritis and melanoma. She originally presented to [facility] at [place] with chest pain and epigastric pain. SHe originally described this as indigestion and she taken Gas-X and Maalox with some moderate improvement. Symptoms seem more cardiac as with his exertion with bilateral arm pain. Patient nuclear medicine stress tested revealed no definite reversibility to suggest ischemia, Mild hypokinesis with ejection fraction 47%. Echocardiogram 05/30 showed moderate to severe aortic stenosis with ejection fraction of 55-60%. Bilateral atrial enlargement. Grade 1 diastolic dysfunction. Aortic valve 0.68 cm. Today, patient had a cardiac catheterization.. Ejection fraction 55% Right Atrium 7 mmHg. RVP 30/5 mmHg, PEEP 30/10 mmHg. Pulmonary capillary Wedge pressure 13 mmHg. Cardiac output 5.3 L per minute. Cardiac index 3 L per m/m . Left main 95%. LAD 20%. Diagonal 20%. Circumflex 80%. OM 90%. RCA 95%. Large infrarenal AAA. Intra-abdominal balloon pump placed one-to-one. Currently denying chest pain and shortness of breath. Patient to undergo imaging of carotid arteries and CT thorax. Dr. Juan Mireles will decide plan of care at that time Assessment and plan Insomnia Acetaminophen 500 mg every 4 hours when necessary fever or pain Alprazolam 0.25 mg every 8 hours when necessary anxiety Melatonin 5 mg at night when necessary insomnia CV: Severe aortic stenosis valve area 0.68 cm Three-vessel coronary artery disease Dyslipidemia Carotid artery disease Infrarenal AAA Grade 1 diastolic dysfunction/chronic Status post cardiac catheterization. Ejection fraction 55%. Grade 1 diastolic dysfunction. Left main 95% stenosis. LAD 20% stenosis. Diagonal 20% stenosis. ON 99% stenosis Circumflex 80% stenosis. RCA 95% stenosis. Currently with IABP at 1-1 Currently on aspirin 325 mg by mouth daily Dr. Martinez to evaluate. Will get carotid ultrasound, CT chest DONE- [facility]WAIT [facility] Lipid panel will be ordered. Previous rosuvastatin 5 mg by mouth daily Resp: History of tobaccoism Nasal cannula to maintain saturations greater than or equal to 92% Incentive spirometry while awake GI: CARDIAC DIET Famotidine for GI prophylaxis Docusate sodium/senna 1 tablet twice a day for bowel regimen : Marr catheter for accurate I's and O's in a critically ill patient with an intra-aortic pump Endo: Hypothyroidism Continue levothyroxine 75 mics grams by mouth daily. Recheck TSH in a.m. Renal: Monitor urine output Accurate I's and O's Creatinine currently within normal limits Heme: Normocytic anemia History melanoma Monitor CBC daily. Follow trends. Currently on heparin drip ID: Monitor for infection MSK: Osteoporosis BACK PAIN TYLENOL OR PERCOCET OR MORPHINE FOR PAIN Physical therapy evaluate and treat. FEN: Replace electrolytes as clinically indicated Access - Utilize peripheral IV. Central line if indicated - Right femoral IABP placed 06/[address] STILL Prophylaxis - GI - DVT - Matt Jasso DO Jun 02, 2017 09:15
--- NOTE | 2017-06-02 10:53 | PD.CAR.PN ---
CVT Progress Note Subjective/Hospital Course: Had a lengthy discussion with the patient and daughter regarding the clinical and angiographic findings. I have discussed the various treatment options including CABG/AVR, CABG with TAVR, PCI followed by TAVR and maximizing medical therapy. At this point, the patient does not wish to entertain surgical intervention. She wants the IABP removed and her medical therapy maximized. She understands her significant risk of a repeat cardiac event which could be fatal. The daughter is in agreement as well. Will defer to Cardiology for further therapy. Standby for now. Objective: Vital Signs Date Time Temp Pulse Resp B/P (MAP) Pulse Ox O2 Delivery O2 Flow Rate FiO2 06/02/17 09:52 95 Nasal Cannula 2.00 06/02/17 08:00 121/32 (99) 06/02/17 07:00 97/28 (84) 06/02/17 07:00 69 06/02/17 07:00 98.0 69 18 142/91 (108) 97 06/02/17 06:11 104/27 (87) 06/02/17 05:07 115/42 (103) 06/02/17 04:09 90/30 (83) 06/02/17 03:24 82 06/02/17 03:19 97.9 90 18 144/87 (106) 98 124/44 (70) 06/02/17 03:00 124/44 (107) 06/02/17 02:00 85/29 (80) 06/02/17 01:00 92/30 (87) 06/02/17 00:00 110/33 (93) 06/01/17 23:15 142/48 (119) 06/01/17 23:15 98.3 98 22 144/86 (105) 93 142/48 (79) 06/01/17 23:00 97 06/01/17 22:00 141/45 (109) 06/01/17 21:39 95 Nasal Cannula 2.00 06/01/17 21:00 142/42 (119) 06/01/17 20:00 131/37 (109) 06/01/17 19:45 98.3 83 16 163/56 (91) 97 139/60 (86) 06/01/17 19:00 139/60 (94) 06/01/17 19:00 83 06/01/17 18:00 118/41 (105) 06/01/17 17:00 152/55 (126) 06/01/17 16:00 92/26 (93) 06/01/17 16:00 98.1 93 16 161/65 (97) 94 06/01/17 16:00 93 06/01/17 16:00 93 06/01/17 15:00 139/34 (104) 06/01/17 14:00 170/55 (136) 06/01/17 13:00 77 06/01/17 13:00 158/41 (123) 06/01/17 13:00 77 06/01/17 13:00 97.7 77 16 153/69 (97) 98 Labs: Laboratory Tests Test 06/02/17 03:49 06/02/17 04:45 White Blood Count 9.8 TH/MM3 (4.0-11.0) Red Blood Count 3.39 MIL/MM3 (4.00-5.30) Hemoglobin 10.5 GM/DL (11.6-15.3) Hematocrit 32.3 % (35.0-46.0) Mean Corpuscular Volume 95.4 FL (80.0-100.0) Mean Corpuscular Hemoglobin 31.0 PG (27.0-34.0) Mean Corpuscular Hemoglobin Concent 32.5 % (32.0-36.0) Red Cell Distribution Width 14.8 % (11.6-17.2) Platelet Count 245 TH/MM3 (150-450) Mean Platelet Volume 8.5 FL (7.0-11.0) Activated Partial Thromboplast Time 46.7 SEC (24.3-30.1) Blood Urea Nitrogen 13 MG/DL (7-18) Creatinine 0.70 MG/DL (0.50-1.00) Random Glucose 91 MG/DL (74-106) Calcium Level 8.4 MG/DL (8.5-10.1) Phosphorus Level 2.7 MG/DL (2.5-4.9) Magnesium Level 2.0 MG/DL (1.5-2.5) Sodium Level 139 MEQ/L (136-145) Potassium Level 3.8 MEQ/L (3.5-5.1) Chloride Level 108 MEQ/L (98-107) Carbon Dioxide Level 24.6 MEQ/L (21.0-32.0) Anion Gap 6 MEQ/L (5-15) Estimat Glomerular Filtration Rate 79 ML/MIN (>89) Triglycerides Level 144 MG/DL (42-150) Cholesterol Level 170 MG/DL (120-200) LDL Cholesterol 86 MG/DL (0-99) HDL Cholesterol 55.0 MG/DL (40.0-60.0) Cholesterol/HDL Ratio 3.09 RATIO Thyroid Stimulating Hormone 3rd Gen 1.590 uIU/ML (0.358-3.740) Nasal Screen MRSA (PCR) MRSA NOT DETECTED (NOT Result Diagram: 06/02/17 0349 06/02/17 0349 Nati Martinez MD Jun 02, 2017 10:53
--- NOTE | 2017-06-02 11:12 | PD.CARD.PN ---
Subjective Subjective Remarks Pt w/o sx, wants IABP out, to go home bhavesh, and agrees to hospice Objective Medications Administered Medications Medications (Trade) Dose Ordered Sig/Mar Route PRN Reason Start Time Stop Time Status Last Admin Dose Admin Sodium Chloride (NS Flush) 2 ml BID IV FLUSH 05/30/17 21:00 06/02/17 08:55 Aspirin (Aspirin) 325 mg DAILY PO 05/31/17 09:00 06/02/17 08:55 Levothyroxine Sodium (Synthroid) 75 mcg DAILY@0600 PO 05/31/17 06:00 06/02/17 06:12 Famotidine (Pepcid) 10 mg BID PO 05/31/17 21:00 06/02/17 08:55 Heparin Sodium/ Dextrose 250 ml @ 7 mls/hr TITRATE PRN IV Coagulation management 06/01/17 12:45 06/01/17 12:35 Melatonin (Melatonin) 5 mg HS PRN PO insomnia 06/01/17 14:45 06/01/17 23:12 Vital Signs / I&O Vital Signs Date Time Temp Pulse Resp B/P (MAP) Pulse Ox O2 Delivery O2 Flow Rate FiO2 06/02/17 09:52 95 Nasal Cannula 2.00 06/02/17 08:00 121/32 (99) 06/02/17 07:00 97/28 (84) 06/02/17 07:00 69 06/02/17 07:00 98.0 69 18 142/91 (108) 97 06/02/17 06:11 104/27 (87) 06/02/17 05:07 115/42 (103) 06/02/17 04:09 90/30 (83) 06/02/17 03:24 82 06/02/17 03:19 97.9 90 18 144/87 (106) 98 124/44 (70) 06/02/17 03:00 124/44 (107) 06/02/17 02:00 85/29 (80) 06/02/17 01:00 92/30 (87) 06/02/17 00:00 110/33 (93) 06/01/17 23:15 142/48 (119) 06/01/17 23:15 98.3 98 22 144/86 (105) 93 142/48 (79) 06/01/17 23:00 97 9/22/17 22:00 141/45 (109) 06/01/17 21:39 95 Nasal Cannula 2.00 06/01/17 21:00 142/42 (119) 06/01/17 20:00 131/37 (109) 06/01/17 19:45 98.3 83 16 163/56 (91) 97 139/60 (86) 06/01/17 19:00 139/60 (94) 06/01/17 19:00 83 06/01/17 18:00 118/41 (105) 06/01/17 17:00 152/55 (126) 06/01/17 16:00 92/26 (93) 06/01/17 16:00 98.1 93 16 161/65 (97) 94 06/01/17 16:00 93 06/01/17 16:00 93 06/01/17 15:00 139/34 (104) 06/01/17 14:00 170/55 (136) 06/01/17 13:00 77 06/01/17 13:00 158/41 (123) 06/01/17 13:00 77 06/01/17 13:00 97.7 77 16 153/69 (97) 98 I/O 06/01/17 06/01/17 06/01/17 06/02/17 06/02/17 06/02/17 07:00 15:00 23:00 07:00 15:00 23:00 Intake Total 480 ml 563.1 ml 246 ml Output Total 550 ml 820 ml Balance 480 ml 13.1 ml -574 ml Intake Oral 480 ml 530 ml 150 ml IV Total 33.1 ml 96 ml Output Urine Total 550 ml 820 ml # Voids 4 # Bowel Movements 0 0 Physical Exam GENERAL: This is a well-nourished, well-developed patient, in no apparent distress. CARDIOVASCULAR: 3/6 HAIDER RESPIRATORY: Clear to auscultation. Breath sounds equal bilaterally. No wheezes , rales, or rhonchi. GASTROINTESTINAL: Abdomen soft, non-tender, nondistended. Normal active bowel sounds MUSCULOSKELETAL: Extremities without clubbing, cyanosis, or edema. NEURO: Alert & Oriented x4 to person, place, time, situation. Moves all ext x4 Laboratory Laboratory Tests Test 06/01/17 13:15 06/01/17 20:15 06/02/17 03:49 06/02/17 04:45 White Blood Count 8.1 TH/MM3 9.8 TH/MM3 Red Blood Count 3.57 MIL/MM3 3.39 MIL/MM3 Hemoglobin 10.9 GM/DL 10.5 GM/DL Hematocrit 34.1 % 32.3 % Mean Corpuscular Volume 95.3 FL 95.4 FL Mean Corpuscular Hemoglobin 30.5 PG 31.0 PG Mean Corpuscular Hemoglobin Concent 31.9 % 32.5 % Red Cell Distribution Width 15.0 % 14.8 % Platelet Count 263 TH/MM3 245 TH/MM3 Mean Platelet Volume 8.4 FL 8.5 FL Prothrombin Time 11.1 SEC Prothromb Time International Ratio 1.0 RATIO Activated Partial Thromboplast Time 57.1 SEC 35.5 SEC 46.7 SEC Hemoglobin A1c 5.5 % Blood Urea Nitrogen 13 MG/DL Creatinine 0.70 MG/DL Random Glucose 91 MG/DL Calcium Level 8.4 MG/DL Phosphorus Level 2.7 MG/DL Magnesium Level 2.0 MG/DL Sodium Level 139 MEQ/L Potassium Level 3.8 MEQ/L Chloride Level 108 MEQ/L Carbon Dioxide Level 24.6 MEQ/L Anion Gap 6 MEQ/L Estimat Glomerular Filtration Rate 79 ML/MIN Triglycerides Level 144 MG/DL Cholesterol Level 170 MG/DL LDL Cholesterol 86 MG/DL HDL Cholesterol 55.0 MG/DL Cholesterol/HDL Ratio 3.09 RATIO Thyroid Stimulating Hormone 3rd Gen 1.590 uIU/ML Nasal Screen MRSA (PCR) MRSA NOT DETECTED Imaging Last Impressions Lower Extremity Ultrasound 06/01/17 0000 Signed Impressions: Service Date/Time: Thursday, June 01, 2017 15:27 - CONCLUSION: 1. Superficial venous mapping as above. 2. Below the knee, the mid and peripheral portions of the right greater saphenous vein are not visualized. Dante Wharton MD Chest CT 06/01/17 0000 Signed Impressions: Service Date/Time: Thursday, June 01, 2017 17:20 - CONCLUSION: 1. Calcification involving the aortic valve and coronary arteries. 2. Metallic foreign body with air noted throughout the descending thoracic aorta suggestive of intraaortic balloon pump. 3. Aneurysmal dilatation of the abdominal aorta which is incompletely evaluated but measures at least 4.7 cm in size. 4. Biapical calcific pleural plaques. 5. Degenerative changes and multilevel compression deformities involving the thoracic spine. 6. Uncomplicated colon diverticulosis. Noe Hurt MD Carotid Artery Ultrasound 06/01/17 0000 Signed Impressions: Service Date/Time: Thursday, June 01, 2017 15:57 - CONCLUSION: 1. Moderate calcified plaque in the right carotid system with severe calcified plaque in the left carotid bulb. 2. Doppler evaluation suggests a greater than 70%% stenosis in the right internal carotid artery with a 50-69%% stenosis on the left. CTA of the cervical vessels is recommended for further characterization. Dante Wharton MD Myocardial Perfusion Scan Nuc Med 05/31/17 0600 Signed Impressions: Service Date/Time: May 08:36 - CONCLUSION: 1. No definite reversibility to suggest ischemia. 2. Mild hypokinesis with ejection fraction 47%%. RISK CATEGORY: Intermediate (1-3%% Annual Mortality Rate) Alan Rodriguez MD Chest X-Ray 05/30/17 1218 Signed Impressions: Service Date/Time: Tuesday, May 30, 2017 12:28 - CONCLUSION: No acute disease. Matt Mobley MD FACR Assessment and Plan Problem List: (1) Aortic stenosis ICD Codes: I35.0 - Nonrheumatic aortic (valve) stenosis (2) CAD (coronary artery disease) ICD Codes: I25.10 - Atherosclerotic heart disease of [place] coronary artery without angina pectoris Assessment and Plan w/ severe MV CAD; pt wants IABP out and hospice consult/DNR Yaron Lebron MD Jun 02, 2017 11:12
[2017-06-02 11:54] LABS: APTT (PATIENT) 41.1 SEC (24.3-30.1)
[2017-06-02] MEDS ORDERED: SODIUM CHLORIDE 0.9% FLUSH 10 ML FLUSH IV FLUSH SCH (21:00)
[2017-06-02] MEDS: DOCUSATE SODIUM 50 MG/SENNA 8.6 MG TAB PO SCH (21:00)
[2017-06-02] MEDS: MELATONIN 5 MG TAB PO PRN (21:54)
[2017-06-03 03:18] VITALS: BP 138/68; PULSE 78; PULSE 79; RESP 16; TEMP 98.4; O2SAT 95
[2017-06-03] MEDS: LEVOTHYROXINE SODIUM 75 MCG TAB PO SCH (06:05)
--- NOTE | 2017-06-03 07:25 | HHI.CCPN ---
Subjective Remarks/Hospital Course This is a 86-year-old female. Date of admission 05/30/2017. Date of consultation 06/01/2017. Past medical history includes hypertension, dyslipidemia, hypothyroidism and carotid vascular disease with osteoarthritis and melanoma. She originally presented to [facility] with chest pain and epigastric pain. He originally described this as indigestion and she taken Gas- X and Maalox with some moderate improvement. Symptoms seem more cardiac as with his exertion with bilateral arm pain. Patient nuclear medicine stress tested revealed no definite reversibility to suggest ischemia, Mild hypokinesis with ejection fraction 47%. Echocardiogram 05/30 showed moderate to severe aortic stenosis with ejection fraction of 55-60%. Bilateral atrial enlargement. Grade 1 diastolic dysfunction. Aortic valve 0.68 cm. Today, patient with cardiac catheterization.. Ejection fraction 55% Right Atrium 7 mmHg. RVP 30/5 mmHg, PEEP 30/10 mmHg. Pulmonary capillary Wedge pressure 13 mmHg. Cardiac output 5.3 L per minute. Cardiac index 3 L per m/m . Left main 95%. LAD 20%. Diagonal 20%. Circumflex 80%. OM 90%. RCA 95%. Large infrarenal AAA. Intra-abdominal pump placed one-to-one. We are asked to evaluate the patient post procedure. Currently denying chest pain and shortness of breath. Patient undergone imaging of carotid arteries and CT thorax. Dr. Juan Hunt will decide plan of care at that time 06/02: Received 2 mg morphine overnight for back pain. Very hard of hearing. Currently denies chest pain or shortness of breath. Hemodynamically stable. Subjective 06/03: Noted hospice consulted. Patient wants to go home today. Denies chest pain. Currently on 2 L nasal cannula saturating at 92%. Objective Vital Signs Date Time Temp Pulse Resp B/P (MAP) Pulse Ox O2 Delivery O2 Flow Rate FiO2 06/03/17 03:18 79 06/03/17 03:18 98.4 16 138/68 (91) 95 06/02/17 20:02 Nasal Cannula 1.00 05/31/17 20:42 21 Intake and Output 06/03/17 06/03/17 06/04/17 08:00 16:00 00:00 Intake Total 480 ml Output Total 365 ml Balance 115 ml Result Diagram: 06/02/17 0349 06/02/17 0349 Imaging Last Impressions Lower Extremity Ultrasound 06/01/17 0000 Signed Impressions: Service Date/Time: Thursday, June 01, 2017 15:27 - CONCLUSION: 1. Superficial venous mapping as above. 2. Below the knee, the mid and peripheral portions of the right greater saphenous vein are not visualized. Dante Wharton MD Chest CT 06/01/17 0000 Signed Impressions: Service Date/Time: Thursday, June 01, 2017 17:20 - CONCLUSION: 1. Calcification involving the aortic valve and coronary arteries. 2. Metallic foreign body with air noted throughout the descending thoracic aorta suggestive of intraaortic balloon pump. 3. Aneurysmal dilatation of the abdominal aorta which is incompletely evaluated but measures at least 4.7 cm in size. 4. Biapical calcific pleural plaques. 5. Degenerative changes and multilevel compression deformities involving the thoracic spine. 6. Uncomplicated colon diverticulosis. Noe Hurt MD Carotid Artery Ultrasound 06/01/17 0000 Signed Impressions: Service Date/Time: Thursday, June 01, 2017 15:57 - CONCLUSION: 1. Moderate calcified plaque in the right carotid system with severe calcified plaque in the left carotid bulb. 2. Doppler evaluation suggests a greater than 70%% stenosis in the right internal carotid artery with a 50-69%% stenosis on the left. CTA of the cervical vessels is recommended for further characterization. Dante Wharton MD Myocardial Perfusion Scan Nuc Med 05/31/17 0600 Signed Impressions: Service Date/Time: May 08:36 - CONCLUSION: 1. No definite reversibility to suggest ischemia. 2. Mild hypokinesis with ejection fraction 47%%. RISK CATEGORY: Intermediate (1-3%% Annual Mortality Rate) Alan Rodriguez MD Chest X-Ray 05/30/17 1218 Signed Impressions: Service Date/Time: Tuesday, May 30, 2017 12:28 - CONCLUSION: No acute disease. Matt Mobley MD FACR Objective Remarks GENERAL: 86-year-old female, appears stated age currently resting in bed in no acute distress SKIN: Warm and dry. Well perfused. HEAD: Atraumatic. Normocephalic. EYES: Pupils equal and round about 3 mm bilaterally and reactive. No scleral icterus. No injection or drainage. ENT: No nasal bleeding or discharge. Mucous membranes pink and moist. Oropharynx without erythema NECK: Trachea midline. No JVD. CARDIOVASCULAR: Regular rate and rhythm. S1, S2. No S4.3. Pansystolic murmur 3 out of 6. RESPIRATORY: No accessory muscle use. Clear to auscultation. Breath sounds equal bilaterally. GASTROINTESTINAL: Abdomen soft, non-tender, nondistended. Hypoactive bowel sounds MUSCULOSKELETAL: Extremities without significant peripheral edema. Right groin is clean dry and intact. After removal balloon pump. Dopplerable dorsalis pedis/posterior tibialis bilaterally NEUROLOGICAL: Awake and alert. No obvious cranial nerve deficits. Motor grossly within normal limits. Five out of 5 muscle strength in the arms and legs. Normal speech. PSYCHIATRIC: Appropriate mood and affect; insight and judgment normal. Procedures MINOR,MARY DATE: 06/01/2017 PROCEDURE PERFORMED 1. Fluoroscopy with interpretation. 2. Coronary angiography. 3. Right heart catheterization. 4. Aortography. 5. Intra-aortic balloon pump placement. METHOD The risks, benefits and alternatives were discussed with the patient. The patient understood and consented to the procedure. The patient was brought into the catheterization lab and placed on the catheterization table. The right groin was prepped and draped in a sterile fashion. The right common femoral artery was cannulated. A 6 Congolese, 11 cm sheath was placed without difficulty. The right femoral vein was accessed and a 7 Congolese, 11 cm sheath was placed without difficulty. RIGHT HEART CATHETERIZATION A 7 Congolese [place] pulmonary arterial catheter is advanced through the right femoral venous sheath to the level of the right atrium under fluoroscopic guidance. Hemodynamics are as follows: 1. Right atrium 7 mmHg. 2. Right ventricular pressure measured at 30/5 mmHg. 3. Pulmonary arterial pressure measured at 30/10 mmHg. 4. Pulmonary capillary wedge pressure 13 mmHg. 5. Cardiac output 5.3 liters per minute. 6. Cardiac index 3.2 liters per minute per meter squared. CORONARY ANGIOGRAPHY The left coronary circulation is selectively engaged with a 6 Congolese JL4 catheter. The right coronary circulation is selectively engaged with a 6 Congolese JR4 catheter. Angiography findings are as follows: 1. The left main ostia has 95%, heavily calcified. There is dampening and ventricularization of the waveform upon engagement. 2. The left anterior descending coronary artery is also moderately calcified but has only minor luminal irregularities. There are two moderate size diagonal branch branches that have mild luminal irregularities. 3. The left circumflex is small caliber size, 80% calcific ostial stenosis. There is a first obtuse marginal branch and sub-branches which is a less than 2 mm caliber size vessel that is 95% subtotally occluded. The remainder of the circumflex is very small. 4. The right coronary is a dominant vessel giving rise to a posterior descending and posterolateral branch. The mid right coronary is 95% subtotally occluded with a tandem 90% stenosis. The remainder of the vessel has mild luminal irregularities. DESCENDING AORTOGRAPHY A 6 Congolese straight pigtail was advanced to the arch of the aorta. Aortography was performed in the left anterior oblique view. Subclavian origin originates on the ascending arch and is patent. The aortic arch and thoracic aorta is mildly dilated but heavily calcified in addition to the ascending aorta which is heavily calcified. The renal arteries appear to be patent, not well-visualized. There is a moderate to large size infrarenal aortic aneurysm with heavy calcium present. 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 The remainder of the iliac arteries on both sides are not well-visualized. INTRA-AORTIC BALLOON PUMP PLACEMENT Given the severity of stenosis in addition to the patient's intermittent resting symptoms in the setting of severe aortic stenosis, we elected to proceed with placement of an intra-aortic balloon pump. We attempted to keep the balloon pump above the renal arteries which would not impact the majority of the aneurysm down below. We are safely able to navigate a 34 cc balloon pump just beyond the takeoff of the left subclavian artery at one-to-one inflation. Appropriate augmentation noted. CONCLUSIONS 1. Severe left main and three vessel [place] coronary disease. 2. Severe aortic stenosis. 3. Normal cardiac output and index. 4. Normal left and right side filling pressures and pulmonary pressures. 5. Moderate to large infrarenal aortic aneurysm. 6. Successful intra-aortic balloon pump placement. PLAN This is a very complex case. I have asked Dr. Martinez, cardiothoracic surgeon, for his input. He was available to review the films immediately with full consultation to follow. 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 We will have to decide ultimately how to handle her case, whether it be a combination of coronary bypass and traditional AVR or high-risk PCI followed by TAVR. The latter of which would be difficult and likely require balloon aortic valvuloplasty and subsequent Impella placement. Will review the case with the cardiothoracic surgeon in addition to the TAVR team, the family, and make our best educated decision. Heparin drip will be initiated and patient transferred to CVICU A/P Assessment and Plan Neuro/Psych: Insomnia Acetaminophen 500 mg every 4 hours when necessary fever or pain Written for oxycodone/acetaminophen for pain as well Alprazolam 0.25 mg every 8 hours when necessary anxiety Melatonin 5 mg at night when necessary insomnia Morphine sulfate 2 mg IV every 4 hours. Breakthrough Pain CV: Severe aortic stenosis valve area 0.68 cm Three-vessel coronary artery disease Dyslipidemia Carotid artery disease left greater than right Infrarenal AAA 4.7 cm Grade 1 diastolic dysfunction/chronic Status post cardiac catheterization. Ejection fraction 55%. Grade 1 diastolic dysfunction. Left main 95% stenosis. LAD 20% stenosis. Diagonal 20% stenosis. ON 99% stenosis Circumflex 80% stenosis. RCA 95% stenosis. 06/02 removed IABP at 1-1 Currently on aspirin 325 mg by mouth daily Yesterday discontinued heparin drip 06/02 Currently patient refusing intervention. Hospice consult Previous rosuvastatin 5 mg by mouth daily Right ICA greater than 70%. Left ICAs 50-69% stenosis. 4.7 cm AAA. Resp: History of tobaccoism Nasal cannula to maintain saturations greater than or equal to 92% currently on 2 L Incentive spirometry while awake GI: Colonic diverticulosis Patient is currently on a regular diet Famotidine for GI prophylaxis Docusate sodium/senna 1 tablet twice a day for bowel regimen : Bowers catheter for accurate I's and O's in a critically ill patient. Removed today Endo: Hypothyroidism Continue levothyroxine 75 mics grams by mouth daily. Renal: Monitor urine output Accurate I's and O's Creatinine currently within normal limits Heme: Normocytic anemia History melanoma Monitor CBC daily. Follow trends. Currently on heparin drip ID: Monitor for infection MSK: Osteoporosis Physical therapy evaluate and treat. FEN: Replace electrolytes as clinically indicated Access - Utilize peripheral IV. Central line if indicated - Right femoral IABP placed 06/01 intermittent 06/02 Prophylaxis - GI - famotidine - DVT -currently off Level II follow-up Harish Jesus MD Jun 03, 2017 07:25
[2017-06-03 07:30] VITALS: O2SAT 93
[2017-06-03 08:00] VITALS: BP 118/69; PULSE 90; RESP 22; TEMP 98.2
[2017-06-03] MEDS: HEPARIN SODIUM - SQ 10,000 UNITS/ML VIAL SQ SCH ×2 (08:36→09:00)
[2017-06-03] MEDS: DOCUSATE SODIUM 50 MG/SENNA 8.6 MG TAB PO SCH (08:37)
[2017-06-03] MEDS: FAMOTIDINE 20 MG TAB PO SCH (08:37)
[2017-06-03] MEDS: ASPIRIN 325 MG TAB PO SCH (08:38)
[2017-06-03] MEDS: SODIUM CHLORIDE 0.9% FLUSH 10 ML FLUSH IV FLUSH SCH (08:39)
--- NOTE | 2017-06-03 08:46 | HHI.PR ---
Subjective Remarks Patient was transferred from [facility] to the main campus [facility]. Underwent cardiac catheterization today with minor results are available in his report Patient is now in the cardiovascular ICU with a balloon pump in place being evaluated by cardiovascular surgery for interventions Patient is scheduled to undergo CAT scans of the chest and abdomen Have discussed with patient and family We'll continue to monitor here in the ICU along with critical care and cardiovascular surgery as well as cardiology 06-02 REMAINS ON IABP AWAIT DECISION OF [facility] REGARDING WHAT THEY WILL OR WILL NOT OFFER DW RN AND PT AND FAMILY WANTS PAIN MEDS ORAL MEDS WRITTEN FOR HAD MORPHINE FOR BACK PAIN WILL MAKE ORALS AVAILABLE NO SOB, NO CHEST PAIN AT THIS TIME 06-03 patient has been seen by hospice. Does not want any surgical interventions Has signed up with hospice. Has had balloon pump taken out Has had Marr taken out Wants to go home today and hospice to follow at home Her primary care physician is Louise Wade Objective Vitals Vital Signs Date Time Temp Pulse Resp B/P (MAP) Pulse Ox O2 Delivery O2 Flow Rate FiO2 06/03/17 07:30 93 Nasal Cannula 1.00 06/03/17 03:18 79 06/03/17 03:18 98.4 78 16 138/68 (91) 95 06/02/17 23:32 77 06/02/17 23:32 98.0 80 16 116/60 (78) 95 06/02/17 20:02 93 Nasal Cannula 1.00 06/02/17 19:46 97.9 88 16 111/58 (75) 95 06/02/17 19:00 88 06/02/17 15:00 89 06/02/17 15:00 98.4 89 18 121/66 (84) 92 Arterial Line 06/02/17 12:00 117/48 (97) 06/02/17 11:00 97.8 84 18 99/36 (57) 95 06/02/17 11:00 99/36 (86) 06/02/17 11:00 84 06/02/17 10:00 95/21 (73) 06/02/17 09:52 95 Nasal Cannula 2.00 06/02/17 09:00 99/36 (86) I/O 06/02/17 06/02/17 06/02/17 06/03/17 06/03/17 06/03/17 07:00 15:00 23:00 07:00 15:00 23:00 Intake Total 246 ml 440 ml 480 ml Output Total 820 ml 425 ml 365 ml Balance -574 ml 15 ml 115 ml Intake Oral 150 ml 400 ml 480 ml IV Total 96 ml 40 ml Output Urine Total 820 ml 425 ml 365 ml Stool Total 0 ml # Bowel Movements 0 0 Result Diagram: 06/02/17 0349 06/02/17 0349 Other Results Laboratory Tests Test 06/01/17 13:15 06/01/17 20:15 06/02/17 03:49 06/02/17 04:45 White Blood Count 8.1 TH/MM3 9.8 TH/MM3 Red Blood Count 3.57 MIL/MM3 3.39 MIL/MM3 Hemoglobin 10.9 GM/DL 10.5 GM/DL Hematocrit 34.1 % 32.3 % Mean Corpuscular Volume 95.3 FL 95.4 FL Mean Corpuscular Hemoglobin 30.5 PG 31.0 PG Mean Corpuscular Hemoglobin Concent 31.9 % 32.5 % Red Cell Distribution Width 15.0 % 14.8 % Platelet Count 263 TH/MM3 245 TH/MM3 Mean Platelet Volume 8.4 FL 8.5 FL Prothrombin Time 11.1 SEC Prothromb Time International Ratio 1.0 RATIO Activated Partial Thromboplast Time 57.1 SEC 35.5 SEC 46.7 SEC Hemoglobin A1c 5.5 % Blood Urea Nitrogen 13 MG/DL Creatinine 0.70 MG/DL Random Glucose 91 MG/DL Calcium Level 8.4 MG/DL Phosphorus Level 2.7 MG/DL Magnesium Level 2.0 MG/DL Sodium Level 139 MEQ/L Potassium Level 3.8 MEQ/L Chloride Level 108 MEQ/L Carbon Dioxide Level 24.6 MEQ/L Anion Gap 6 MEQ/L Estimat Glomerular Filtration Rate 79 ML/MIN Triglycerides Level 144 MG/DL Cholesterol Level 170 MG/DL LDL Cholesterol 86 MG/DL HDL Cholesterol 55.0 MG/DL Cholesterol/HDL Ratio 3.09 RATIO Thyroid Stimulating Hormone 3rd Gen 1.590 uIU/ML Nasal Screen MRSA (PCR) MRSA NOT DETECTED Test 06/02/17 11:30 Activated Partial Thromboplast Time 41.1 SEC Imaging Last Impressions Lower Extremity Ultrasound 06/01/17 0000 Signed Impressions: Service Date/Time: Thursday, June 01, 2017 15:27 - CONCLUSION: 1. Superficial venous mapping as above. 2. Below the knee, the mid and peripheral portions of the right greater saphenous vein are not visualized. Dante Wharton MD Chest CT 06/01/17 0000 Signed Impressions: Service Date/Time: Thursday, June 01, 2017 17:20 - CONCLUSION: 1. Calcification involving the aortic valve and coronary arteries. 2. Metallic foreign body with air noted throughout the descending thoracic aorta suggestive of intraaortic balloon pump. 3. Aneurysmal dilatation of the abdominal aorta which is incompletely evaluated but measures at least 4.7 cm in size. 4. Biapical calcific pleural plaques. 5. Degenerative changes and multilevel compression deformities involving the thoracic spine. 6. Uncomplicated colon diverticulosis. Noe Hurt MD Carotid Artery Ultrasound 06/01/17 0000 Signed Impressions: Service Date/Time: Thursday, June 01, 2017 15:57 - CONCLUSION: 1. Moderate calcified plaque in the right carotid system with severe calcified plaque in the left carotid bulb. 2. Doppler evaluation suggests a greater than 70%% stenosis in the right internal carotid artery with a 50-69%% stenosis on the left. CTA of the cervical vessels is recommended for further characterization. Dante Wharton MD Myocardial Perfusion Scan Nuc Med 05/31/17 0600 Signed Impressions: Service Date/Time: May 08:36 - CONCLUSION: 1. No definite reversibility to suggest ischemia. 2. Mild hypokinesis with ejection fraction 47%%. RISK CATEGORY: Intermediate (1-3%% Annual Mortality Rate) Alan Rodriguez MD Chest X-Ray 05/30/17 1218 Signed Impressions: Service Date/Time: Tuesday, May 30, 2017 12:28 - CONCLUSION: No acute disease. Matt Mobley MD FACR Objective Remarks GENERAL: Awake alert and oriented talkative and cooperative appears to be in no acute distress at this time SKIN: Warm and dry. HEAD: Atraumatic. Normocephalic. EYES: Pupils equal and round. No scleral icterus. No injection or drainage. EOMI ENT: No nasal bleeding or discharge. Mucous membranes pink and moist. Tongue is midline NECK: Trachea midline. No JVD. Supple CARDIOVASCULAR: Regular rate and rhythm. S1-S2 no S3 or S4 RESPIRATORY: No accessory muscle use. Clear to auscultation. Breath sounds equal bilaterally. GASTROINTESTINAL: Abdomen soft, non-tender, nondistended. Hepatic and splenic margins not palpable. MUSCULOSKELETAL: Extremities without clubbing, cyanosis, or edema. No obvious deformities. NEUROLOGICAL: Awake and alert. No obvious cranial nerve deficits. Motor grossly within normal limits. 4 out of 5 muscle strength in the arms and legs. Normal speech. PSYCHIATRIC: Appropriate mood and affect; insight and judgment normal. Procedures MINOR,MARY DATE: 06/01/2017 PROCEDURE PERFORMED 1. Fluoroscopy with interpretation. 2. Coronary angiography. 3. Right heart catheterization. 4. Aortography. 5. Intra-aortic balloon pump placement. METHOD The risks, benefits and alternatives were discussed with the patient. The patient understood and consented to the procedure. The patient was brought into the catheterization lab and placed on the catheterization table. The right groin was prepped and draped in a sterile fashion. The right common femoral artery was cannulated. A 6 Armenian, 11 cm sheath was placed without difficulty. The right femoral vein was accessed and a 7 Armenian, 11 cm sheath was placed without difficulty. RIGHT HEART CATHETERIZATION A 7 Armenian [place]-Jacy pulmonary arterial catheter is advanced through the right femoral venous sheath to the level of the right atrium under fluoroscopic guidance. Hemodynamics are as follows: 1. Right atrium 7 mmHg. 2. Right ventricular pressure measured at 30/5 mmHg. 3. Pulmonary arterial pressure measured at 30/10 mmHg. 4. Pulmonary capillary wedge pressure 13 mmHg. 5. Cardiac output 5.3 liters per minute. 6. Cardiac index 3.2 liters per minute per meter squared. CORONARY ANGIOGRAPHY The left coronary circulation is selectively engaged with a 6 Armenian JL4 catheter. The right coronary circulation is selectively engaged with a 6 Armenian JR4 catheter. Angiography findings are as follows: 1. The left main ostia has 95%, heavily calcified. There is dampening and ventricularization of the waveform upon engagement. 2. The left anterior descending coronary artery is also moderately calcified but has only minor luminal irregularities. There are two moderate size diagonal branch branches that have mild luminal irregularities. 3. The left circumflex is small caliber size, 80% calcific ostial stenosis. There is a first obtuse marginal branch and sub-branches which is a less than 2 mm caliber size vessel that is 95% subtotally occluded. The remainder of the circumflex is very small. 4. The right coronary is a dominant vessel giving rise to a posterior descending and posterolateral branch. The mid right coronary is 95% subtotally occluded with a tandem 90% stenosis. The remainder of the vessel has mild luminal irregularities. DESCENDING AORTOGRAPHY A 6 Armenian straight pigtail was advanced to the arch of the aorta. Aortography was performed in the left anterior oblique view. Subclavian origin originates on the ascending arch and is patent. The aortic arch and thoracic aorta is mildly dilated but heavily calcified in addition to the ascending aorta which is heavily calcified. The renal arteries appear to be patent, not well-visualized. There is a moderate to large size infrarenal aortic aneurysm with heavy calcium present. 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 The remainder of the iliac arteries on both sides are not well-visualized. INTRA-AORTIC BALLOON PUMP PLACEMENT Given the severity of stenosis in addition to the patient's intermittent resting symptoms in the setting of severe aortic stenosis, we elected to proceed with placement of an intra-aortic balloon pump. We attempted to keep the balloon pump above the renal arteries which would not impact the majority of the aneurysm down below. We are safely able to navigate a 34 cc balloon pump just beyond the takeoff of the left subclavian artery at one-to-one inflation. Appropriate augmentation noted. CONCLUSIONS 1. Severe left main and three vessel oneida coronary disease. 2. Severe aortic stenosis. 3. Normal cardiac output and index. 4. Normal left and right side filling pressures and pulmonary pressures. 5. Moderate to large infrarenal aortic aneurysm. 6. Successful intra-aortic balloon pump placement. PLAN This is a very complex case. I have asked Dr. Martinez, cardiothoracic surgeon, for his input. He was available to review the films immediately with full consultation to follow. 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 We will have to decide ultimately how to handle her case, whether it be a combination of coronary bypass and traditional AVR or high-risk PCI followed by TAVR. The latter of which would be difficult and likely require balloon aortic valvuloplasty and subsequent Impella placement. Will review the case with the cardiothoracic surgeon in addition to the TAVR team, the family, and make our best educated decision. Heparin drip will be initiated and patient transferred to CVICU Medications and IVs Current Medications Aspirin (Aspirin Chew) 162 mg ONCE ONCE PO ; Start 05/30/17 at 12:30; Stop at 12:30; Status DC Sodium Chloride (NS Flush) 2 ml UNSCH PRN IVF FLUSH AFTER USING IV ACCESS; Start 05/30/17 at 12:30; Stop 05/30/17 at 15:39; Status DC Aspirin (Aspirin Chew) 81 mg ONCE ONCE CHEW Last administered on 05/30/17 12: 29; Start 05/30/17 at 12:30; Stop 05/30/17 at 12:31; Status DC Lisinopril (Prinivil) 10 mg ONCE ONCE PO ; Start 05/30/17 at 13:15; Stop at 13:16; Status Cancel Lisinopril (Prinivil) 10 mg ONCE ONCE PO Last administered on 05/30/17 13:21 ; Start 05/30/17 at 13:30; Stop 05/30/17 at 13:31; Status DC Sodium Chloride (NS Flush) 2 ml UNSCH PRN IV FLUSH FLUSH AFTER USING IV ACCESS ; Start 05/30/17 at 13:30 Sodium Chloride (NS Flush) 2 ml BID IV FLUSH Last administered on 06/03/17 08: 39; Start 05/30/17 at 21:00 Nitroglycerin (Nitroglycerin 2% Oint) 1 inch Q6HR TOP ; Start 05/30/17 at 18:00 ; Stop 05/30/17 at 18:00; Status DC Acetaminophen (Tylenol) 500 mg Q4H PRN PO HEADACHE; Start 05/30/17 at 15:45 Morphine Sulfate (Morphine Inj) 2 mg Q4H PRN IV PUSH PAIN SCALE 8 TO 10 Last administered on 06/02/17 03:19; Start 05/30/17 at 15:45; Stop 06/02/17 at 09:34 ; Status DC Ondansetron HCl (Zofran Inj) 4 mg Q6H PRN IV PUSH NAUSEA; Start 05/30/17 at 15: 45; Stop 06/02/17 at 09:37; Status DC Famotidine (Pepcid) 20 mg BID PO Last administered on 05/30/17 20:24; Start at 21:00; Stop 05/31/17 at 09:50; Status DC Nitroglycerin (Nitrostat Sl) 0.4 mg Q5M PRN SL CHEST PAIN; Start 05/30/17 at 15 :45 Aspirin (Aspirin) 325 mg DAILY PO Last administered on 06/03/17 08:38; Start 05/31/17 at 09:00 Levothyroxine Sodium (Synthroid) 75 mcg DAILY@0600 PO Last administered on 06/03 06:05; Start 05/31/17 at 06:00 Enoxaparin Sodium (Lovenox Inj) 40 mg Q24H SQ ; Start 05/30/17 at 17:00; Status Cancel Enalaprilat (Vasotec Inj) 1.25 mg Q6H PRN IV PUSH SBP>160, DBP>90; Start at 17:00 Regadenoson (Lexiscan Inj) 0.4 mg STK-MED ONCE IV Last administered on 09:24; Start 05/31/17 at 13:29; Stop 05/31/17 at 13:30; Status DC Famotidine (Pepcid) 10 mg BID PO Last administered on 06/03/17 08:37; Start at 21:00 Heparin Sodium/ Sodium Chloride 1,000 ml @ As Directed STK-MED ONCE .ROUTE Last administered on 06/01/17 11:27; Start 06/01/17 at 11:27; Stop 06/01/17 at 11:28; Status DC Midazolam HCl (Versed Inj) 2 mg STK-MED ONCE .ROUTE Last administered on 11:48; Start 06/01/17 at 11:28; Stop 06/01/17 at 11:29; Status DC Fentanyl Citrate (fentaNYL INJ) 100 mcg STK-MED ONCE .ROUTE Last administered on 06/01/17 11:42; Start 06/01/17 at 11:28; Stop 06/01/17 at 11:29; Status DC Heparin Sodium/ Dextrose 250 ml @ As Directed STK-MED ONCE .ROUTE ; Start 06/01 at 12:16; Stop 06/01/17 at 12:17; Status DC Heparin Sodium (Porcine) (Heparin Inj) 10,000 units STK-MED ONCE .ROUTE Last administered on 06/01/17 12:33; Start 06/01/17 at 12:23; Stop 06/01/17 at 12:24 ; Status DC Sodium Chloride 1,000 ml @ 100 mls/hr Q10H IV ; Start 06/01/17 at 12:37; Stop 06/01/17 at 18:36; Status DC Lorazepam (Ativan Inj) 0.5 mg UNSCH PRN IV PUSH ANXIETY; Start 06/01/17 at 12: 45; Stop 06/02/17 at 12:44; Status DC Lidocaine HCl (Xylocaine 1% Inj (50 ml)) 10 ml UNSCH PRN INFIL SHEATH REMOVAL; Start 06/01/17 at 12:45; Stop 06/02/17 at 12:44; Status DC Bacitracin (Bacitracin Oint Packet) 0.9 gm ONCE ONCE TOP ; Start 06/01/17 at 12 :45; Stop 06/01/17 at 13:12; Status DC Heparin Sodium/ Dextrose 250 ml @ 7 mls/hr TITRATE PRN IV Coagulation management Last administered on 06/01/17 12:35; Start 06/01/17 at 12:45; Stop 06/03/17 at 07:42; Status DC Iohexol (OMNIPAQUE 350 INJ (Outsole Cutter Machine)) 100 ml STK-MED ONCE OTHER ; Start at 13:29; Stop 06/01/17 at 13:28; Status DC Melatonin (Melatonin) 5 mg HS PRN PO insomnia Last administered on 06/02/17 21 :54; Start 06/01/17 at 14:45 Alprazolam (Xanax) 0.25 mg Q8H PRN PO anxiety; Start 06/01/17 at 14:45 Sodium Chloride (NS Flush) 2 ml BID IV FLUSH ; Start 06/01/17 at 21:00; Stop at 21:00; Status DC Sodium Chloride (NS Flush) 2 ml UNSCH PRN IV FLUSH FLUSH AFTER USING IV ACCESS ; Start 06/01/17 at 14:45; Stop 06/01/17 at 14:45; Status DC Papaverine HCl 60 mg/Nitroglycerin 100 mcg/Diltiazem HCl 100 mg/Sodium Chloride 100 ml @ 0 mls/hr TUB MENDER IRRIGATION ; Start 06/01/17 at 14:45; Stop 06/08/17 at 14:44 Cefazolin Sodium 500 mg/Sodium Chloride 505 ml @ 0 mls/hr TUB MENDER IRRIGATION ; Start 06/01/17 at 14:45; Stop 06/08/17 at 14:44 Cefazolin Sodium/ Dextrose 50 ml @ 150 mls/hr TUB MENDER IV ; Start 06/01/17 at 14:45; Stop 06/08/17 at 14:44 Metoprolol Tartrate (Lopressor) 12.5 mg TUB MENDER PO ; Start 06/01/17 at 14:45; Stop 06/08/17 at 14:44 Chlorhexidine Gluconate (Hibiclens 4% Top Soln) 1 applic TUB MENDER TOPICAL ; Start 06/01/17 at 14:45; Stop 06/08/17 at 14:44 Insulin Human Regular 100 units/ Sodium Chloride 101 ml @ 0 mls/hr TUB MENDER IV ; Start 06/01/17 at 14:45; Stop 06/08/17 at 14:44 Sodium Chloride (NS Flush) 2 ml UNSCH PRN IV FLUSH FLUSH AFTER USING IV ACCESS ; Start 06/02/17 at 09:15; Status UNV Sodium Chloride (NS Flush) 2 ml BID IV FLUSH ; Start 06/02/17 at 21:00; Status UNV Acetaminophen (Tylenol) 650 mg Q4H PRN PO TEMP > 100.4; Start 06/02/17 at 09:15 Ondansetron HCl (Zofran Inj) 4 mg Q6H PRN IVP NAUSEA OR VOMITING; Start at 09:15 Prochlorperazine (Compazine Supp) 25 mg Q12H PRN RECTAL NAUSEA OR VOMITING; Start 06/02/17 at 09:15 Acetaminophen (Tylenol) 650 mg Q6H PRN PO PAIN SCALE 1 TO 2; Start 06/02/17 at 09:15 Oxycodone/ Acetaminophen (Percocet 5-325 Mg) 1 tab Q6H PRN PO PAIN SCALE 3 TO 5; Start 06/02/17 at 09:15 Oxycodone/ Acetaminophen (Percocet 10-325 Mg) 1 tab Q6H PRN PO PAIN SCALE 6 TO 10; Start 06/02/17 at 09:15 Morphine Sulfate (Morphine Inj) 2 mg Q3H PRN IV PUSH Pain 3-5; if unable to take PO Last administered on 06/02/17 13:11; Start 06/02/17 at 09:15 Morphine Sulfate (Morphine Inj) 4 mg Q3H PRN IV PUSH Pain 6-10;if unable to take PO; Start 06/02/17 at 09:15 Morphine Sulfate (Morphine Inj) 4 mg Q3H PRN IV PUSH BREAKTHROUGH PAIN; Start 06/02/17 at 09:15 Naloxone HCl (Narcan Inj) 0.4 mg UNSCH PRN IV PUSH SEE LABEL COMMENTS; Start at 09:15 Senna/Docusate Sodium (Kathy-Colace) 1 tab BID PO Last administered on 08:37; Start 06/02/17 at 21:00 Magnesium Hydroxide (Milk Of Magnesia Liq) 30 ml Q12H PRN PO MILD - MODERATE CONSTIPATION; Start 06/02/17 at 09:15 Sennosides (Senokot) 17.2 mg Q12H PRN PO MODERATE - SEVERE CONSTIPATION; Start 06/02/17 at 09:15 Bisacodyl (Dulcolax Supp) 10 mg DAILY PRN RECTAL SEVERE CONSITIPATION; Start at 09:15 Lactulose (Lactulose Liq) 30 ml DAILY PRN PO SEVERE CONSITIPATION; Start at 09:15 Heparin Sodium (Porcine) (Heparin Inj) 5,000 units Q12HR SQ Last administered on 06/03/17 08:36; Start 06/03/17 at 09:00 Urinary Catheter: No Assessment to: Remove Vascular Central Line Catheter: No Assessment to: Remove A/P Problem List: (1) Chest pressure ICD Code: R07.89 - Other chest pain Plan: Atypical and associated with dyspnea on exertion, likely due to moderate to severe aortic valve stenosis seen on echo. (2) Hypertensive urgency ICD Code: I16.0 - Hypertensive urgency (3) Indigestion ICD Code: K30 - Functional dyspepsia (4) Dyspnea on exertion ICD Code: R06.09 - Other forms of dyspnea Assessment and Plan This is a 86-year-old female. Date of admission 05/30/2017. . Past medical history includes hypertension, dyslipidemia, hypothyroidism and carotid vascular disease with osteoarthritis and melanoma. She originally presented to [facility] [place] with chest pain and epigastric pain. SHe originally described this as indigestion and she taken Gas-X and Maalox with some moderate improvement. Symptoms seem more cardiac as with his exertion with bilateral arm pain. Patient nuclear medicine stress tested revealed no definite reversibility to suggest ischemia, Mild hypokinesis with ejection fraction 47%. Echocardiogram 05/30 showed moderate to severe aortic stenosis with ejection fraction of 55-60%. Bilateral atrial enlargement. Grade 1 diastolic dysfunction. Aortic valve 0.68 cm. Today, patient had a cardiac catheterization.. Ejection fraction 55% Right Atrium 7 mmHg. RVP 30/5 mmHg, PEEP 30/10 mmHg. Pulmonary capillary Wedge pressure 13 mmHg. Cardiac output 5.3 L per minute. Cardiac index 3 L per m/m . Left main 95%. LAD 20%. Diagonal 20%. Circumflex 80%. OM 90%. RCA 95%. Large infrarenal AAA. Intra-abdominal balloon pump placed one-to-one. Currently denying chest pain and shortness of breath. Patient to undergo imaging of carotid arteries and CT thorax. Dr. Juan Hunt will decide plan of care at that time Assessment and plan Insomnia Acetaminophen 500 mg every 4 hours when necessary fever or pain Alprazolam 0.25 mg every 8 hours when necessary anxiety Melatonin 5 mg at night when necessary insomnia CV: Severe aortic stenosis valve area 0.68 cm Three-vessel coronary artery disease Dyslipidemia Carotid artery disease Infrarenal AAA Grade 1 diastolic dysfunction/chronic Status post cardiac catheterization. Ejection fraction 55%. Grade 1 diastolic dysfunction. Left main 95% stenosis. LAD 20% stenosis. Diagonal 20% stenosis. ON 99% stenosis Circumflex 80% stenosis. RCA 95% stenosis. Currently with IABP at 1-1 Currently on aspirin 325 mg by mouth daily Dr. Martinez to evaluate. Will get carotid ultrasound, CT chest DONE- [facility]WAIT [facility] Lipid panel will be ordered. Previous rosuvastatin 5 mg by mouth daily Resp: History of tobaccoism Nasal cannula to maintain saturations greater than or equal to 92% Incentive spirometry while awake GI: CARDIAC DIET Famotidine for GI prophylaxis Docusate sodium/senna 1 tablet twice a day for bowel regimen : Marr catheter for accurate I's and O's in a critically ill patient with an intra-aortic pump Endo: Hypothyroidism Continue levothyroxine 75 mics grams by mouth daily. Recheck TSH in a.m. Renal: Monitor urine output Accurate I's and O's Creatinine currently within normal limits Heme: Normocytic anemia History melanoma Monitor CBC daily. Follow trends. Currently on heparin drip ID: Monitor for infection MSK: Osteoporosis BACK PAIN TYLENOL OR PERCOCET OR MORPHINE FOR PAIN Physical therapy evaluate and treat. FEN: Replace electrolytes as clinically indicated Access - Utilize peripheral IV. Central line if indicated - Right femoral IABP placed 06/[address] STILL Prophylaxis - GI - DVT - Patient has had balloon pump removed. She has had Marr catheter removed. Has signed up with [facility]. Wants to go home today. Under hospice We'll discharge to home today Discharge Planning Discharge to hospice today no interventions wanted no surgical interventions Matt Jasso DO Jun 03, 2017 08:46
[2017-06-03] MEDS ORDERED: ALPR.25 PO (08:50)
[2017-06-03] MEDS ORDERED: LEVO75TA3 PO (08:50)
[2017-06-03] MEDS ORDERED: FAMO20TA2 PO (08:50)
[2017-06-03] MEDS ORDERED: ASPI325T PO (08:50)
[2017-06-03] MEDS ORDERED: OXYC1TAB36 PO (08:50)
[2017-06-03] MEDS ORDERED: GNP5TAB6 PO (08:50)
[2017-06-03] MEDS ORDERED: NITR0.4S SL (08:50)
--- NOTE | 2017-06-03 08:54 | HHI.DS ---
Discharge Summary Admission Date Jun 02, 2017 at 10:26 Discharge Date: Jun 03, 2017 Admitting Diagnosis chest pain (1) Chest pressure ICD Code: R07.89 - Other chest pain Diagnosis: Principal (2) Hypertensive urgency ICD Code: I16.0 - Hypertensive urgency Diagnosis: Secondary (3) Indigestion ICD Code: K30 - Functional dyspepsia Diagnosis: Secondary (4) Dyspnea on exertion ICD Code: R06.09 - Other forms of dyspnea Diagnosis: Secondary (5) Aortic stenosis ICD Code: I35.0 - Nonrheumatic aortic (valve) stenosis Diagnosis: Principal (6) CAD (coronary artery disease) ICD Code: I25.10 - Atherosclerotic heart disease of [place] coronary artery without angina pectoris Diagnosis: Principal Procedures MINOR,MARY DATE: 06/01/2017 PROCEDURE PERFORMED 1. Fluoroscopy with interpretation. 2. Coronary angiography. 3. Right heart catheterization. 4. Aortography. 5. Intra-aortic balloon pump placement. METHOD The risks, benefits and alternatives were discussed with the patient. The patient understood and consented to the procedure. The patient was brought into the catheterization lab and placed on the catheterization table. The right groin was prepped and draped in a sterile fashion. The right common femoral artery was cannulated. A 6 [place], 11 cm sheath was placed without difficulty. The right femoral vein was accessed and a 7 [place], 11 cm sheath was placed without difficulty. RIGHT HEART CATHETERIZATION A 7 [place] pulmonary arterial catheter is advanced through the right femoral venous sheath to the level of the right atrium under fluoroscopic guidance. Hemodynamics are as follows: 1. Right atrium 7 mmHg. 2. Right ventricular pressure measured at 30/5 mmHg. 3. Pulmonary arterial pressure measured at 30/10 mmHg. 4. Pulmonary capillary wedge pressure 13 mmHg. 5. Cardiac output 5.3 liters per minute. 6. Cardiac index 3.2 liters per minute per meter squared. CORONARY ANGIOGRAPHY The left coronary circulation is selectively engaged with a 6 [place] JL4 catheter. The right coronary circulation is selectively engaged with a 6 [place] JR4 catheter. Angiography findings are as follows: 1. The left main ostia has 95%, heavily calcified. There is dampening and ventricularization of the waveform upon engagement. 2. The left anterior descending coronary artery is also moderately calcified but has only minor luminal irregularities. There are two moderate size diagonal branch branches that have mild luminal irregularities. 3. The left circumflex is small caliber size, 80% calcific ostial stenosis. There is a first obtuse marginal branch and sub-branches which is a less than 2 mm caliber size vessel that is 95% subtotally occluded. The remainder of the circumflex is very small. 4. The right coronary is a dominant vessel giving rise to a posterior descending and posterolateral branch. The mid right coronary is 95% subtotally occluded with a tandem 90% stenosis. The remainder of the vessel has mild luminal irregularities. DESCENDING AORTOGRAPHY A 6 [place] straight pigtail was advanced to the arch of the aorta. Aortography was performed in the left anterior oblique view. Subclavian origin originates on the ascending arch and is patent. The aortic arch and thoracic aorta is mildly dilated but heavily calcified in addition to the ascending aorta which is heavily calcified. The renal arteries appear to be patent, not well-visualized. There is a moderate to large size infrarenal aortic aneurysm with heavy calcium present. 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 The remainder of the iliac arteries on both sides are not well-visualized. INTRA-AORTIC BALLOON PUMP PLACEMENT Given the severity of stenosis in addition to the patient's intermittent resting symptoms in the setting of severe aortic stenosis, we elected to proceed with placement of an intra-aortic balloon pump. We attempted to keep the balloon pump above the renal arteries which would not impact the majority of the aneurysm down below. We are safely able to navigate a 34 cc balloon pump just beyond the takeoff of the left subclavian artery at one-to-one inflation. Appropriate augmentation noted. CONCLUSIONS 1. Severe left main and three vessel [place] coronary disease. 2. Severe aortic stenosis. 3. Normal cardiac output and index. 4. Normal left and right side filling pressures and pulmonary pressures. 5. Moderate to large infrarenal aortic aneurysm. 6. Successful intra-aortic balloon pump placement. PLAN This is a very complex case. I have asked Dr. Martinez, cardiothoracic surgeon, for his input. He was available to review the films immediately with full consultation to follow. 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 We will have to decide ultimately how to handle her case, whether it be a combination of coronary bypass and traditional AVR or high-risk PCI followed by TAVR. The latter of which would be difficult and likely require balloon aortic valvuloplasty and subsequent Impella placement. Will review the case with the cardiothoracic surgeon in addition to the TAVR team, the family, and make our best educated decision. Heparin drip will be initiated and patient transferred to CVICU Brief History - From Admission 86-year-old female with history of mitral valve prolapse, AAA, bilateral carotid artery blockages, thyroid disease, and arthritis presents with complaint of indigestion, chest pressure, and shortness of breath on exertion. The patient states that she has had "serious indigestion" for a couple of weeks. She states she has had gas pain in the lower abdomen. She states she took Gas-X which reduced the "abdominal stuff" and allowed her to belch. Takes two tablets of ibuprofen 200 mg daily for arthritis, but denies recent increase in use. Takes ranitidine as needed for heartburn depending on what she eats. Denies hematochezia or melena. She states on Sunday night though when she was getting ready to go to bed she started to have chest pressure in the center of her chest stating it felt like a "heavy book". She states she could not catch her breath. She states this episode lasted 30 minutes. She states again when she was in the ER today in bed she had pressure over the center of her chest which was less severe and lasted 1.5 hours without medication. She denies any associated diaphoresis, numbness or tingling in the upper extremities, radiation of pain to the neck/jaws/shoulders/arms/back, nausea, or vomiting. Denies palpitations. Denies any current chest pain, shortness of breath, or abdominal pain. The patient takes a baby aspirin daily and she took it this morning and received another 81 mg in the ED. Patient denies regurgitation with episodes. She states for the past 6 months she has had shortness of breath with exertion and that she when she does housework etc. she has to take a break which she did not need to do prior to 6 months ago. The patient does not remember when she last had an echocardiogram. She is aware she has a murmur. She states her old PCP Dr. Berg had referred her to Dr. Moon who evaluated her. She tells me she has slight blockages in both carotid arteries and additionally has a AAA which is less than 4 cm, both issues are being monitored. Denies h/o HTN. States she was on Rosuvastatin for 3 -4 years, but had taken herself off it; she restarted it a few days ago. The patient additionally states she had generalized weakness yesterday which has now resolved, but admits to episodes of this on and off over the past 6 months. She denies any focal weakness. The patient admits to feeling lightheaded and woozy when she has her episodes of indigestion. She denies any HAs, recent fevers or chills, cold or cough symptoms, dysuria, or diarrhea. She states she took a long car trip to [place] at the end of March and had some left ankle swelling at that time but it has greatly reduced since then; frequent stops were made. She denies any calf pain, history of DVT or pulmonary embolus, hemoptysis, recent hospitalization/trauma/surgery in the last 3 months, estrogen use, or active cancer. Patient has never had a cardiac stress test. Patient was transferred from [facility] to the main [facility]. Underwent cardiac catheterization today with Dr. mireles results are available in his report Patient is now in the cardiovascular ICU with a balloon pump in place being evaluated by cardiovascular surgery for interventions Patient is scheduled to undergo CAT scans of the chest and abdomen Have discussed with patient and family We'll continue to monitor here in the ICU along with critical care and cardiovascular surgery as well as cardiology 06-02 REMAINS ON IABP AWAIT DECISION OF [facility] REGARDING WHAT THEY WILL OR WILL NOT OFFER DW RN AND PT AND FAMILY WANTS PAIN MEDS ORAL MEDS WRITTEN FOR HAD MORPHINE FOR BACK PAIN WILL MAKE ORALS AVAILABLE NO SOB, NO CHEST PAIN AT THIS TIME 06-03 patient has been seen by hospice. Does not want any surgical interventions Has signed up with hospice. Has had balloon pump taken out Has had Bowers taken out Wants to go home today and hospice to follow at home Her primary care physician is Louise Wade CBC/BMP: 06/02/17 0349 06/02/17 034 Significant Findings Laboratory Tests Test 06/01/17 13:15 06/01/17 20:15 06/02/17 03:49 06/02/17 04:45 Red Blood Count 3.57 MIL/MM3 (4.00-5.30) 3.39 MIL/MM3 (4.00-5.30) Hemoglobin 10.9 GM/DL (11.6-15.3) 10.5 GM/DL (11.6-15.3) Hematocrit 34.1 % (35.0-46.0) 32.3 % (35.0-46.0) Mean Corpuscular Hemoglobin Concent 31.9 % (32.0-36.0) Activated Partial Thromboplast Time 57.1 SEC (24.3-30.1) 35.5 SEC (24.3-30.1) 46.7 SEC (24.3-30.1) Calcium Level 8.4 MG/DL (8.5-10.1) Chloride Level 108 MEQ/L (98-107) Estimat Glomerular Filtration Rate 79 ML/MIN (>89) Test 06/02/17 11:30 Activated Partial Thromboplast Time 41.1 SEC (24.3-30.1) Imaging Last Impressions Lower Extremity Ultrasound 06/01/17 0000 Signed Impressions: Service Date/Time: Thursday, June 01, 2017 15:27 - CONCLUSION: 1. Superficial venous mapping as above. 2. Below the knee, the mid and peripheral portions of the right greater saphenous vein are not visualized. Dante Wharton MD Chest CT 06/01/17 0000 Signed Impressions: Service Date/Time: Thursday, June 01, 2017 17:20 - CONCLUSION: 1. Calcification involving the aortic valve and coronary arteries. 2. Metallic foreign body with air noted throughout the descending thoracic aorta suggestive of intraaortic balloon pump. 3. Aneurysmal dilatation of the abdominal aorta which is incompletely evaluated but measures at least 4.7 cm in size. 4. Biapical calcific pleural plaques. 5. Degenerative changes and multilevel compression deformities involving the thoracic spine. 6. Uncomplicated colon diverticulosis. Noe Hurt MD Carotid Artery Ultrasound 06/01/17 0000 Signed Impressions: Service Date/Time: Thursday, June 01, 2017 15:57 - CONCLUSION: 1. Moderate calcified plaque in the right carotid system with severe calcified plaque in the left carotid bulb. 2. Doppler evaluation suggests a greater than 70%% stenosis in the right internal carotid artery with a 50-69%% stenosis on the left. CTA of the cervical vessels is recommended for further characterization. Dante Wharton MD Myocardial Perfusion Scan Nuc Med 05/31/17 0600 Signed Impressions: Service Date/Time: May 08:36 - CONCLUSION: 1. No definite reversibility to suggest ischemia. 2. Mild hypokinesis with ejection fraction 47%%. RISK CATEGORY: Intermediate (1-3%% Annual Mortality Rate) Alan Rodriguez MD Chest X-Ray 05/30/17 1218 Signed Impressions: Service Date/Time: Tuesday, May 30, 2017 12:28 - CONCLUSION: No acute disease. Matt Mobley MD FACR PE at Discharge GENERAL: Awake alert and oriented talkative and cooperative appears to be in no acute distress at this time SKIN: Warm and dry. HEAD: Atraumatic. Normocephalic. EYES: Pupils equal and round. No scleral icterus. No injection or drainage. EOMI ENT: No nasal bleeding or discharge. Mucous membranes pink and moist. Tongue is midline NECK: Trachea midline. No JVD. Supple CARDIOVASCULAR: Regular rate and rhythm. S1-S2 no S3 or S4 RESPIRATORY: No accessory muscle use. Clear to auscultation. Breath sounds equal bilaterally. GASTROINTESTINAL: Abdomen soft, non-tender, nondistended. Hepatic and splenic margins not palpable. MUSCULOSKELETAL: Extremities without clubbing, cyanosis, or edema. No obvious deformities. NEUROLOGICAL: Awake and alert. No obvious cranial nerve deficits. Motor grossly within normal limits. 4 out of 5 muscle strength in the arms and legs. Normal speech. PSYCHIATRIC: Appropriate mood and affect; insight and judgment normal. Hospital Course 86-year-old female with history of mitral valve prolapse, AAA, bilateral carotid artery blockages, thyroid disease, and arthritis presents with complaint of indigestion, chest pressure, and shortness of breath on exertion. The patient states that she has had "serious indigestion" for a couple of weeks. She states she has had gas pain in the lower abdomen. She states she took Gas-X which reduced the "abdominal stuff" and allowed her to belch. Takes two tablets of ibuprofen 200 mg daily for arthritis, but denies recent increase in use. Takes ranitidine as needed for heartburn depending on what she eats. Denies hematochezia or melena. She states on Sunday night though when she was getting ready to go to bed she started to have chest pressure in the center of her chest stating it felt like a "heavy book". She states she could not catch her breath. She states this episode lasted 30 minutes. She states again when she was in the ER today in bed she had pressure over the center of her chest which was less severe and lasted 1.5 hours without medication. She denies any associated diaphoresis, numbness or tingling in the upper extremities, radiation of pain to the neck/jaws/shoulders/arms/back, nausea, or vomiting. Denies palpitations. Denies any current chest pain, shortness of breath, or abdominal pain. The patient takes a baby aspirin daily and she took it this morning and received another 81 mg in the ED. Patient denies regurgitation with episodes. She states for the past 6 months she has had shortness of breath with exertion and that she when she does housework etc. she has to take a break which she did not need to do prior to 6 months ago. The patient does not remember when she last had an echocardiogram. She is aware she has a murmur. She states her old PCP Dr. Berg had referred her to Dr. Moon who evaluated her. She tells me she has slight blockages in both carotid arteries and additionally has a AAA which is less than 4 cm, both issues are being monitored. Denies h/o HTN. States she was on Rosuvastatin for 3 -4 years, but had taken herself off it; she restarted it a few days ago. The patient additionally states she had generalized weakness yesterday which has now resolved, but admits to episodes of this on and off over the past 6 months. She denies any focal weakness. The patient admits to feeling lightheaded and woozy when she has her episodes of indigestion. She denies any HAs, recent fevers or chills, cold or cough symptoms, dysuria, or diarrhea. She states she took a long car trip to [place] at the end of March and had some left ankle swelling at that time but it has greatly reduced since then; frequent stops were made. She denies any calf pain, history of DVT or pulmonary embolus, hemoptysis, recent hospitalization/trauma/surgery in the last 3 months, estrogen use, or active cancer. Patient has never had a cardiac stress test. Patient was transferred from [facility] to the main [facility]. Underwent cardiac catheterization today with Dr. mireles results are available in his report Patient is now in the cardiovascular ICU with a balloon pump in place being evaluated by cardiovascular surgery for interventions Patient is scheduled to undergo CAT scans of the chest and abdomen Have discussed with patient and family We'll continue to monitor here in the ICU along with critical care and cardiovascular surgery as well as cardiology 06-02 REMAINS ON IABP AWAIT DECISION OF [facility] REGARDING WHAT [facility] WILL OR WILL NOT OFFER DW RN AND PT AND FAMILY WANTS PAIN MEDS ORAL MEDS WRITTEN FOR HAD MORPHINE FOR BACK PAIN WILL MAKE ORALS AVAILABLE NO SOB, NO CHEST PAIN AT THIS TIME 06-03 patient has been seen by hospice. Does not want any surgical interventions Has signed up with hospice. Has had balloon pump taken out Has had Bowers taken out Wants to go home today and hospice to follow at home Her primary care physician is Louise Wade WANTS TO GO HOME WITH HOSPICE TODAY WILL DC TO HOME SEE MED REC AND ORDERS Pt Condition on Discharge: Guarded Discharge Disposition: Hospice/ Home Discharge Time: > 30 minutes Discharge Instructions DIET: Follow Instructions for: As Tolerated, No Restrictions, Heart Healthy Diet Speech Therapy-Diet Recommends: Regular Activities you can perform: Regular-No Restrictions Follow up Referrals: PCP Follow-up - 1 Week with Deanne Wade MD New Medications: Alprazolam (Xanax) 0.25 Mg Tab 0.25 MG PO Q8H PRN for anxiety, #90 TAB Aspirin (Aspirin) 325 Mg Tab 325 MG PO DAILY for Blood Clot Prevention, #90 TAB Famotidine (Famotidine) 20 Mg Tab 10 MG PO BID for Heartburn Management, #60 TAB Melatonin (Gnp Melatonin Maximum Str) 5 Mg Tab 5 MG PO HS PRN for insomnia, #30 TAB Nitroglycerin SL (Nitrostat SL) 0.4 Mg Subl 0.4 MG SL Q5M PRN for CHEST PAIN, #100 TAB Oxycodone-Acetaminophen (Oxycodone-Acetaminophen) 10-325 mg Tab 1 TAB PO Q6H PRN for PAIN SCALE 6 TO 10, #60 TAB Continued Medications: Levothyroxine (Levothyroxine) 75 Mcg Tab 75 MCG PO DAILY for Thyroid, #30 TAB 3 Refills (This prescription has been renewed) Discontinued Medications: Aspirin (Aspirin Low Dose) 81 Mg Chew 81 MG CHEW DAILY, TAB 0 Refills Matt Jasso DO Jun 03, 2017 08:54
[2017-06-03 10:02] LABS: AUTOMATED NEUTROPHIL # 7.6 TH/MM3 (1.8-7.7); BASOPHIL # 0.1 TH/MM3 (0-0.2); BASOPHIL % 0.7 % (0.0-2.0); EOSINOPHIL # 0.2 TH/MM3 (0-0.4); EOSINOPHIL % 2.1 % (0.0-4.0); HEMATOCRIT 31.6 % (35.0-46.0); HEMO FLAGS DIFF FINAL; LYMPHOCYTE # 1.7 TH/MM3 (1.0-4.8); MEAN CELL VOLUME 94.2 FL (80.0-100.0); MEAN CORPUSCULAR HEMOGLOBIN 30.5 PG (27.0-34.0); MEAN CORPUSCULAR HGB CONC 32.4 % (32.0-36.0); MONO % 14.6 % (0.0-8.0); NEUT % 67.6 % (16.0-70.0); PLATELET COUNT 227 TH/MM3 (150-450); RED BLOOD COUNT 3.36 MIL/MM3 (4.00-5.30); RED CELL DISTRIBUTION WIDTH 15.1 % (11.6-17.2); WHITE BLOOD COUNT 11.2 TH/MM3 (4.0-11.0)
[2017-06-03 10:19] LABS: ANION GAP 8 MEQ/L (5-15); AST (GOT) 14 U/L (15-37); BICARBONATE 25.6 MEQ/L (21.0-32.0); BLOOD UREA NITROGEN 11 MG/DL (7-18); CHLORIDE 103 MEQ/L (98-107); GLOMERULAR FILTRATION RATE 78 ML/MIN (>89); MAGNESIUM 1.9 MG/DL (1.5-2.5); POTASSIUM 3.7 MEQ/L (3.5-5.1); SODIUM (NA) 137 MEQ/L (136-145)
[2017-06-03 10:20] LABS: ALT (GPT) 16 U/L (10-53)
[2017-06-03 10:22] LABS: ALKALINE PHOSPHATASE 72 U/L (45-117); TOTAL BILIRUBIN ADULT 0.5 MG/DL (0.2-1.0)
[2017-06-03 11:00] VITALS: BP 126/67; PULSE 102; RESP 18; TEMP 98.6
--- NOTE | 2017-06-03 13:06 | EKG ---
Date Performed: 06/02/2017 Time Performed: 18:51:32 PTAGE: 86 years EKG: Sinus rhythm Inferior/lateral ST-T changes are nonspecific Borderline ECG PREVIOUS TRACING : 05/30/2017 18.38 Since previous tracing, no significant change. DOCTOR: Fredy Hale Interpretating Date/Time 06/03/2017 13:04:32
--- NOTE | 2017-06-04 12:18 | RSPPFT ---
DATE OF PROCEDURE: 06/01/17 COMMENTS: Spirometry demonstrates an FEV1 of 1.0 at 73%, FVC of 1.8 at 79%, FEF 25-75 is 49% of predicted. The FEV1/FVC ratio is 60. Flow volume loops are suggestive of an obstructive pattern. IMPRESSION: 1. 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
== END 2017-06-03 13:36 | disposition hospice, home (50) | DRG 272 ==
LOC: PHED 11:33 → PH3B 13:28 → HCIN 05-31 18:16 → HCVR 06-01 13:03 → OBSVTOIN 06-02 10:26
PROVIDERS: ADMIT Hospitalist; ATTEND Hospitalist
PROC: 3E0F7GC Introduction of Other Therapeutic Substance into Respiratory Tract, Via Natural or Artificial Opening (ICD-10-PCS; 2017-05-30)
PROC: 4A023N8 Measurement of Cardiac Sampling and Pressure, Bilateral, Percutaneous Approach (ICD-10-PCS; 2017-06-01)
PROC: B2111ZZ Fluoroscopy of Multiple Coronary Arteries using Low Osmolar Contrast (ICD-10-PCS; 2017-06-01)
PROC: B2151ZZ Fluoroscopy of Left Heart using Low Osmolar Contrast (ICD-10-PCS; 2017-06-01)
PROC: B3101ZZ Fluoroscopy of Thoracic Aorta using Low Osmolar Contrast (ICD-10-PCS; 2017-06-01)
PROC: 5A02210 Assistance with Cardiac Output using Balloon Pump, Continuous (ICD-10-PCS; principal; 2017-06-01 11:00)
PROC: 0T9B70Z Drainage of Bladder with Drainage Device, Via Natural or Artificial Opening (ICD-10-PCS; 2017-06-02)
PROC: 02P Heart and Great Vessels, Removal (ICD-10-PCS; 2017-06-03)
DX: I08.3 Combined rheumatic disorders of mitral, aortic and tricuspid valves (principal); I25.10 Atherosclerotic heart disease of native coronary artery without angina pectoris; I72.3 Aneurysm of iliac artery; I10 Essential (primary) hypertension; I65.23 Occlusion and stenosis of bilateral carotid arteries; I71.4 Abdominal aortic aneurysm, without rupture; M19.90 Unspecified osteoarthritis, unspecified site; M81.0 Age-related osteoporosis without current pathological fracture; D64.9 Anemia, unspecified; K30 Functional dyspepsia; I16.0 Hypertensive urgency; E03.9 Hypothyroidism, unspecified; Z79.82 Long term (current) use of aspirin; I44.0 Atrioventricular block, first degree; I70.8 Atherosclerosis of other arteries; E78.5 Hyperlipidemia, unspecified; G47.00 Insomnia, unspecified; H91.90 Unspecified hearing loss, unspecified ear; M54.9 Dorsalgia, unspecified; K57.30 Diverticulosis of large intestine without perforation or abscess without bleeding; Z85.820 Personal history of malignant melanoma of skin; Z87.891 Personal history of nicotine dependence; Z66 Do not resuscitate
CPT/HCPCS: 33967; 71010; 71250; 78452; 80048; 80053; 80061; 81001; 82550; 83036; 83690; 83735; 84100; 84443; 84484; 85025; 85027; 85610; 85730; 87641; 93005; 93017; 93306; 93308; 93454; 93567; 93880; 93970; 93998; 94010; A9502; C1769; C1893; G0378; J1644; J2250; J2270; J2785; J3010; Q9967